=== PATIENT | female | born 1965 | race Caucasian/White ===

== ENCOUNTER 2023-11-14 07:52 | Outpatient (OUT) | payer OTHER, SELFPAY ==
--- NOTE | 2023-11-14 08:18 | MM_ITS ---
Patient Name: EREN ARCHIBALD MR#: [id number] : 1965 Exam Date: 11/14/2023 Ordering Doctor: ZENA Deutsch CNP RADIOLOGY REPORT PROCEDURE: MM TOMOSYNTHESIS SCREENING BI COMPARISON: MG MAMM SCREEN 3D [place] CAD, 11/13/2022. MG MAMM SCREEN 3D [place] CAD, 11/10/2021. MG MAMM SCREEN [place] W CAD, 11/09/2020. MG MAMM [place] SCRN W CAD DIG, 12/31/2013. INDICATIONS: Screening Calculator Name NCI Breast Cancer Risk Assessment Tool 5 Year Breast Cancer Risk 1.60% Lifetime Breast Cancer Risk 9.50% Personal Breast Cancer No Personal Ovarian Cancer No Treatments None Family Cancers Father with lung cancer at age 71. LOCATION: [facility] BREAST COMPOSITION: Heterogeneously dense,which may obscure small masses. FINDINGS: DIAGNOSTIC CATEGORY 1--NEGATIVE. RIGHT BREAST: No significant suspicious finding. No significant change has occurred. LEFT BREAST: No significant suspicious finding. No significant change has occurred. RECOMMENDATIONS: ROUTINE MAMMOGRAM AND CLINICAL EVALUATION IN 12 MONTHS. PLEASE NOTE: A NORMAL MAMMOGRAM DOES NOT EXCLUDE THE POSSIBILITY OF BREAST CANCER. A CLINICALLY SUSPICIOUS PALPABLE LUMP SHOULD BE BIOPSIED. Dictated by: Clem Espinal M.D. on 11/15/2023 at 07:37 Approved by: Clem Espinal M.D. on 11/15/2023 at 07:41
== END 2023-11-14 07:53 | disposition home or self-care (01) ==
LOC: MAMMO 07:52
PROVIDERS: PCP Nurse Practitioner; Visit Provider Nurse Practitioner
DX: Z12.31 Encounter for screening mammogram for malignant neoplasm of breast (principal); Z80.1 Family history of malignant neoplasm of trachea, bronchus and lung
CPT/HCPCS: 77063; 77067

== ENCOUNTER 2024-05-14 10:18 | Emergency (ER) | payer OTHER, SELFPAY ==
--- OUTSIDE RECORDS SUMMARY | 2024-05-14 10:27 | XMS_ITS | CCD ---
Author Organization [facility] Care Team Providers Care Applications Development Consultant Name Role Phone DR SAMMI ROBERTS Admitting Unavailabl e KARASIK ., DR CHAPA Attending Unavailabl e AICHHOLZ, CONTACT CLERK KIRSTEN Primary Care Unavailable KARASIK Alfredo, DR CHAPA Consulting Unavailabl e AICHHOLZ, CONTACT CLERK KIRSTEN Admitting Unavailable AICHHOLZ, CONTACT CLERK KIRSTEN Attending Unavailable AICHHOLZ, CONTACT CLERK KIRSTEN Primary Care Unavailable DR AROLDO ENGLISH V Consulting Unavailable AICHHOLZ, CONTACT CLERK KIRSTEN Consulting Unavailable AICHHOLZ, CONTACT CLERK KIRSTEN Admitting Unavailable AICHHOLZ, CONTACT CLERK KIRSTEN Attending Unavailable AICHHOLZ, CONTACT CLERK KIRSTEN Primary Care Unavailable AICHHOLZ, CONTACT CLERK KIRSTEN Consulting Unavailable DR INEZ FORD Consulting Unavailable AICHHOLZ, CONTACT CLERK KIRSTEN Admitting Unavailable AICHHOLZ, CONTACT CLERK KIRSTEN Attending Unavailable AICHHOLZ, CONTACT CLERK KIRSTEN Primary Care Unavailable AICHHOLZ, CONTACT CLERK KIRSTEN Consulting Unavailable AICHHOLZ, CONTACT CLERK KIRSTEN Admitting Unavailable AICHHOLZ, CONTACT CLERK KIRSTEN Attending Unavailable AICHHOLZ, CONTACT CLERK KIRSTEN Primary Care Unavailable AICHHOLZ, CONTACT CLERK KIRSTEN Consulting Unavailable DR INEZ FORD Consulting Unavailable RADHA RODRIGUEZ Consulting Unavailable AICHHOLZ, CONTACT CLERK KIRSTEN Admitting Unavailable AICHHOLZ, CONTACT CLERK KIRSTEN Attending Unavailable AICHHOLZ, CONTACT CLERK KIRSTEN Primary Care Unavailable AICHHOLZ, CONTACT CLERK KIRSTEN Consulting Unavailable AICHHOLZ, CONTACT CLERK KIRSTEN Admitting Unavailable AICHHOLZ, CONTACT CLERK KIRSTEN Attending Unavailable AICHHOLZ, CONTACT CLERK KIRSTEN Primary Care Unavailable AICHHOLZ, CONTACT CLERK KIRSTEN Consulting Unavailable DR INEZ FORD Consulting Unavailable AICHHOLZ, CONTACT CLERK KIRSTEN Admitting Unavailable AICHHOLZ, CONTACT CLERK KIRSTEN Attending Unavailable AICHHOLZ, CONTACT CLERK KIRSTEN Primary Care Unavailable AICHHOLZ, CONTACT CLERK KIRSTEN Consulting Unavailable Medications Current Medications Medication Drug Class(es) Dates Sig (Normalized) Sig (Original) amoxicillin 875 mg / clavulanate 125 mg oral tablet (1 source) Penicillin-class Antibacterial Start: 05-04-2024 take 1 tablet by mouth every twelve hours Amoxicillin-Pot Clavulanate Active 1 TAB PO Every 12 hours 07 09May 04, 2024 12:00am Problems Active Problems Problem Classification Problem Date Documented Date Episodic/Chronic Immunizations and screening for infectious disease (2 sources) Encounter for screening for human papillomavirus (HPV); Translations: [Contact with or exposure to other viral diseases] Onset: 01-07-2023 05-04-2024 Episodic Other ear and sense organ disorders (1 source) Hearing loss; Translations: [Unspecified hearing loss, unspecified ear] 05-04-2024 Chronic Other screening for suspected conditions (not mental disorders or infectious disease) (8 sources) Encounter for screening for malignant neoplasm of cervix; Translations: [Encounter for screening mammogram for malignant neoplasm of breast] Onset: 11-13-2022 Episodic Residual codes; unclassified (1 source) Family history of malignant neoplasm of trachea, bronchus and lung; Translations: [FAM HX MALIG NEOPLSM TRACH BRON LNG] Onset: 11-17-2022 Episodic Past or Other Problems Problem Classification Problem Date Documented Date Episodic/Chronic Abdominal pain (8 sources) Right lower quadrant pain; Translations: [Generalized abdominal pain] Onset: 07-11-2022 Episodic Other hematologic conditions (4 sources) Elevated erythrocyte sedimentation rate; Translations: [ELEVATED ERYTHROCYTE SED RATE] Onset: 08-15-2022 Episodic Other liver diseases (4 sources) Hepatomegaly, not elsewhere classified; Translations: [HEPATOMEGALY NEC] Onset: 08-26-2022 Episodic Ovarian cyst (1 source) Unspecified ovarian cyst, right side; Translations: [UNSPECIFIED OVARIAN CYST RIGHT SIDE] Onset: 08-10-2022 Episodic Results Test Name Value Interpretation Reference Range Facil ity PAP ACOG PANEL 2: 30 to 65on 01-12-2023 . . Normal [facility] Comment on above: Result Comment: Perf ormed at: WB Performed By: #### [id number] ####[facility] [id number] [place] [id number] Uriah Noriega Age Gdln ACOG Testing 30-65 Normal [facility] Comment on above: Performed By: #### [id number] ####[place] [address]Dr. Uriah Noriega DIAGNOSIS: Comment Normal [facility] Comment on above: Result Comment: NEGA TIVE FOR INTRAEPITHELIAL LESION OR MALIGNANCY. CELLULAR CHANGES ASSOCIATED WITH ATROPHY ARE PRESENT. THIS SPECIMEN WAS RESCREENED PART OF OUR EAR NOSE AND THROAT SPECIALIST PROGRAM. Performed at: WB Performed By: #### [id number] ####[facility] [id number] [place], [place] [address]Dr. Uriah Noriega HPV Aptima QNSPAP Normal [facility] Comment on above: Result Comment: Test not performed. Liquid based PAP vial contained insufficient specimen for molecular testing; likely a consequence of insufficient cellularity in original collection. This nucleic acid amplification test detects fourteen high-risk HPV types (16,18,31,33,35,39,45,51,52,56,58,59,66,68) without differentiation. Performed at: =G Performed By: #### [id number] ####[place] [address]Dr. Uriah Noriega HPV Genotype Reflex Comment Normal [facility] Comment on above: Result Comment: Crit eria not met, HPV Genotype not performed. Performed at: WB Performed By: #### [id number] ####[place] [address]Dr. Uriah Noriega Methodology: Comment Normal [facility] Comment on above: Result Comment: This liquid based ThinPrep(R) pap test was screened with the use of an image guided system. Performed at: WB Performed By: #### [id number] ####[place] [address]Dr. Uriah Noriega Note: Comment Normal [facility] Comment on above: Result Comment: The Pap smear is a screening test designed to aid in the detection of premalignant and malignant conditions of the uterine cervix. It is not a diagnostic procedure and should not be used as the sole means of detecting cervical cancer. Both false-positive and false-negative reports do occur. . Performed at: WB Performed By: #### [id number] ####[facility] [id number] [place], [place] [address]Fm. Uriah Noriega Performed by: Comment Normal [facility] Comment on above: Result Comment: Jonn Deng, Sole Rounder (ASCP) Performed at: WB Performed By: #### [id number] ####[facility] [address] [place], [place] [address]Wf. Uriah Noriega QC reviewed by: Comment Normal [facility] Comment on above: Result Comment: Arleen Larios, Sole Rounder Performed at: WB Performed By: #### [id number] ####[facility] [address] [place], [place] [address]Ml. Uriah Noriega Specimen adequacy: Comment Normal [facility] Comment on above: Result Comment: Sati sfactory for evaluation. Endocervical and/or squamous metaplastic cells (endocervical component) are present. Performed at: WB Performed By: #### [id number] ####[facility] [address] [place] [id number]. Uriah Noriega MG MAMM SCREEN 3D [place] CADon 11-13-2022 MG MAMM SCREEN 3D [place] CAD Patient: EREN ARCHIBALD Exam Date: 11/13/2022 : 1965 Gender:F Ordering : ZENA DEUTSCH [facility] Admission #: [id number] Family : Order #: [id number] CLICK HERE TO VIEW EXAM RADIOLOGY REPORT PROCEDURE: MAMMOGRAM SCREENING 3D BILATERAL CAD COMPARISON: MG MAMM SCREEN [place] W CAD, 11/09/2020. MG MAMM SCREEN 3D [place] CAD, 11/10/2021. INDICATIONS: Screening mammography Calculator Name NCI Breast Cancer Risk Assessment Tool 5 Year Breast Cancer Risk 1.50% Lifetime Breast Cancer Risk 9.70% Personal Breast Cancer No Personal Ovarian Cancer No Treatments None Family Cancers Father with lung cancer at age 71. LOCATION: [facility] BREAST COMPOSITION: Heterogeneously dense,which may obscure small masses. FINDINGS: DIAGNOSTIC CATEGORY 1--NEGATIVE. NO CHANGE FROM COMPARISON ASSESSMENT. Scattered benign-appearing lymph nodes are present. RIGHT BREAST: No significant suspicious finding. LEFT BREAST: No significant suspicious finding. RECOMMENDATIONS: ROUTINE MAMMOGRAM AND CLINICAL EVALUATION IN 12 MONTHS. PLEASE NOTE: A NORMAL MAMMOGRAM DOES NOT EXCLUDE THE POSSIBILITY OF BREAST CANCER. A CLINICALLY SUSPICIOUS PALPABLE LUMP SHOULD BE BIOPSIED. Dictated by: Aroldo English MD on 11/14/2022 at 10:15 Approved by: Aroldo English MD on 11/14/2022 at 10:16 Normal [facility] US SINGLE QUAD RT UPPERon US SINGLE QUAD RT UPPER EXAMINATION: US SINGLE QUAD RT UPPER HISTORY: Large liver COMPARISON: No relevant comparison available. TECHNIQUE: Transabdominal evaluation of the right upper quadrant. FINDINGS: LIVER: 2 adjacent rounded slightly hyperechoic lesions within right hepatic lobe near gallbladder fossa, 2.1 cm and 1.2 cm in maximum diameter respectively. PORTAL VEIN: Duplex Doppler demonstrates normal hepatopetal flow pattern with flow velocity averaging 23 cm/s. GALLBLADDER: No visible gallstones, wall thickening, or pericholecystic free fluid. Negative sonographic Ramirez's sign. BILIARY: No abnormal dilation or stones. Common bile duct diameter is within normal limits. PANCREASE: No visible mass, abnormal atrophy, or duct dilation. KIDNEY: No hydronephrosis. No visible mass or stones. Size: 8.4 x 4.5 x 3.0 cm IMPRESSION: 1. Stable small lesions within right hepatic lobe adjacent the gallbladder fossa demonstrate mild hyperechogenicity, which in correlation with MRI study favor benign hemangiomas. No additional follow-up recommended at this time. Electronically authenticated by: INEZ FORD Date: 2022-08-26 16:42 Normal [facility] CRPon 08-15-2022 CRP [Mass/Vol] mg/L Normal <=1.0 [facility] Comment on above: Performed By: #### C RP #### [facility] [address] [place], [place] [address] Dr. Uriah Noriega SED RATE WESTERGRENon 2021 SED RATE 32 mm/hr Critically high <=30 [facility] Comment on above: Performed By: #### S EDR ####[facility] [address] [place], [place] [address]JfDr. Uriah Noriega MRI ABDOMEN WO W CONon 08-09 MRI ABDOMEN WO W CON INDICATION: Large liver EXAMINATION: MRI - MRI ABDOMEN WO W CON TECHNIQUE: Multiplanar and multisequence MR images of the abdomen were obtained. IV Contrast Dosage and Agent: 13 mL of Dotarem COMPARISON: A CT scan of the abdomen and pelvis dated 07/08/2022. FINDINGS: LOWER CHEST: Lung bases are clear. No cardiomegaly or pericardial effusion. LIVER: There are adjacent nodules near the inferior margin of the right lobe of liver. The more lateral measures approximately 1.8 (transverse) x 1.4 (AP) x 1.5 (cc). The more medial measures approximately 1.3 (transverse) x 1.4 (AP) x 1.5 (cc) centimeters. These lesions are darker than underlying hepatic parenchyma on T1, brighter than spleen on T2 and exhibit intermediate homogeneous enhancement on portal venous images. On out of phase gradient echo images, there is slightly diminished signal within the liver compared with in phase gradient echo images, suggesting mild fatty infiltration of the underlying hepatic parenchyma. GALLBLADDER AND BILIARY TREE: No filling defects in the gallbladder. No gallbladder distension or wall edema. No intra- or extrahepatic biliary ductal dilation. PANCREAS: No focal cystic or solid mass. SPLEEN: Normal size without focal cystic or solid mass. ADRENAL GLANDS: No nodules. KIDNEYS AND URETERS: Normal renal size and position. No hydronephrosis. PERITONEUM: No ascites or free air. No other fluid collection. LYMPH NODES: No enlarged mesenteric or retroperitoneal lymph nodes. VESSELS: Aorta is non-dilated. IMPRESSION: 1. Adjacent hepatic nodules near the inferior margin of the right lobe of liver exhibiting imaging characteristics most consistent with hemangiomas. Other potential explanations are unlikely. If these lesions are echogenic compared to underlying hepatic parenchyma on ultrasound, no further workup is required. If the lesions are hypoechoic, a follow-up MRI examination in approximately 8-12 months time could be obtained in order to verify stability. Electronically authenticated by: RADHA RODRIGUEZ Date: 2022-08-09 14:14 Normal [facility] US PELVIS AND TRANSVAGon US PELVIS AND TRANSVAG EXAMINATION: US PELVIS AND TRANSVAG HISTORY: Cyst of right ovary COMPARISON: CT abdomen and pelvis 07/12/2022 TECHNIQUE: Transabdominal and transvaginal sonographic examination. FINDINGS: UTERUS: Normal size and appearance. Uterus size: 6.0 x 4.0 x 3.1 cm ENDOMETRIUM: Normal homogeneous appearance. Endometrial thickness: 3 mm RIGHT OVARY: Normal size and appearance. Duplex Doppler demonstrates normal waveform and flow; resistive index 0.4. Ovary size: 1.5 x 1.6 x 1.0 cm LEFT OVARY: Normal size and appearance. Duplex Doppler demonstrates normal waveform and flow; resistive index 0.5. Ovary size: 1.8 x 1.0 x 1.4 cm CUL-DE-SAC: Unremarkable. No significant free fluid. BLADDER: Unremarkable. OTHER: None. IMPRESSION: 1. Normal pelvic ultrasound. No suspicious findings. Electronically authenticated by: INEZ FORD Date: 2022-08-07 15:40 Normal [facility] CT ABD/PELV W CONon 07-13-20 CT ABD/PELV W CON EXAMINATION: CT ABD/PELV W CON HISTORY: Right lower quadrant pain COMPARISON: No relevant comparison available. TECHNIQUE: CT images were created with IV contrast. Axial, Coronal, and Sagittal images. Dose reduction techniques were achieved by using automated exposure control and/or adjustment of mA and/or kV according to patient size and/or use of iterative reconstruction technique FINDINGS: LUNG BASES: No visible pulmonary or pleural disease. LIVER: Lobular, enhancing 2.9 x 2.0 x 1.9 cm lesion at the inferior medial margin of the right hepatic lobe adjacent the gallbladder fossa. BILIARY: No dilatation or calcification. PANCREAS: No lesion, fluid collection, or abnormal duct dilatation. SPLEEN: No enlargement or focal lesion. ADRENALS: No mass or enlargement. KIDNEYS: No mass, obstruction, or calcification. BOWEL/MESENTERY: Numerous noninflamed diverticula throughout the entire colon. No visible mass, obstruction, or bowel wall thickening. Normal appendix. AORTA/VASCULAR: No aneurysm or dissection. RETROPERITONEUM: No mass or adenopathy. LYMPH NODES: No adenopathy. URINARY BLADDER: No visible focal wall thickening, lesion, or calculus. PELVIC ORGANS: Small cyst within right ovary. Trace fluid/edema within the pelvic cul-de-sac. Unremarkable uterus. ABDOMINAL WALL: No mass or hernia. BONES: L5-S1 marked degenerative disc disease. No bony lesion or fracture. OTHER: Negative. IMPRESSION: 1. Lobular, enhancing lesion versus several adjacent small lesions in inferior medial margin of anterior right hepatic lobe adjacent the gallbladder fossa. These are nonspecific, but a mass is favored over hemangiomas. Consider MRI of liver without and with IV contrast for further evaluation. 2. Colonic diverticulosis. 3. Trace amount of fluid within the pelvic cul-de-sac and small right ovarian cyst which may contribute to patient's symptoms. Consider ultrasound follow-up if clinically indicated. 4. L5-S1 marked degenerative disc disease. Electronically authenticated by: INEZ FORD Date: 2022-07-13 06:30 Normal [facility] OCC BLD IMMUNOASSAYon 2021 OCCULT BLOOD Negative Normal NEGATIVE [facility] Comment on above: Performed By: #### O MANISHA ####[facility] [id number] [place] [address]Dr. Uriah Noriega CBC AUTO DIFFon 07-10-2022 BASO # 0.1 103/ul Normal 0.0-0.1 [facility] Comment on above: Performed By: #### C BC #### [facility] [address] [place] [address] Dr. Uriah Noriega Basophils/100 WBC (Bld) 0.9 % Normal 0.2-2.0 [facility] Comment on above: Performed By: #### C BC #### [facility] [address] [place] [address] Dr. Uriah Noriega EO # 0.4 103/ul Normal 0.0-0.7 [facility] Comment on above: Performed By: #### C BC #### [facility] [address] [place] [address] [address] Uriah Noriega Eosinophils/100 WBC (Bld) 5.6 % Normal 0.9-7.0 [facility] Comment on above: Performed By: #### C BC #### [facility] [address] [place] [address] [address] Uriah Noriega Erythrocyte distribution width (RBC) [Ratio] 12.4 % Normal 11.0-15.0 [facility] Comment on above: Performed By: #### C BC #### [facility] [address] [place] [address] [address] Uriah Noriega Hematocrit (Bld) [Volume fraction] 42.3 % Normal 36.0-48.0 [facility] Comment on above: Performed By: #### C BC #### [facility] [address] [place] [address] Dr. Uriah Noriega Hemoglobin (Bld) [Mass/Vol] 13.8 g/dL Normal 12.0-16.0 [facility] Comment on above: Performed By: #### C BC #### [facility] [address] [place] [address] Dr. Uriah Noriega IG # 0.01 10e3/ul Normal 0.00-0.03 [facility] Comment on above: Performed By: #### C BC #### [facility] [address] [place] [address] Dr. Uriah Noriega IG % 0.2 % Normal 0.0-0.5 [facility] Comment on above: Performed By: #### C BC #### [facility] [address] [place] [address] Dr. Uriah Noriega LYMPH # 1.8 103/ul Normal 1.2-3.8 [facility] Comment on above: Performed By: #### C BC #### [facility] [address] [place] [address] Dr. Uriah Noriega Lymphocytes/100 WBC (Bld) 27.5 % Normal 20.5-60.0 [facility] Comment on above: Performed By: #### C BC #### [facility] [address] [place] [address] Dr. Uriah Noriega MANUAL DIFF REQ NO Normal [facility] Comment on above: Performed By: #### C BC #### [facility] [address] [place] [address] Dr. Uriah Noriega MCH (RBC) [Entitic mass] 28.6 pg Normal 26.7-34.0 [facility] Comment on above: Performed By: #### C BC #### [facility] [address] [place] [address] Dr. Uriah Noriega MCHC (RBC) [Mass/Vol] 32.6 g/dL Normal 29.9-35.2 [facility] Comment on above: Performed By: #### C BC #### [facility] [address] [place] [address] [address] Uriah Noriega MCV (RBC) [Entitic vol] 87.8 fL Normal 81.0-99.0 [facility] Comment on above: Performed By: #### C BC #### [facility] [address] [place] [address] [address] Uriah Noriega MONO # 0.6 103/ul Normal 0.3-0.8 [facility] Comment on above: Performed By: #### C BC #### [facility] [address] [place] [address] Dr. Uriah Noriega Monocytes/100 WBC (Bld) 9.4 % Normal 1.7-12.0 [facility] Comment on above: Performed By: #### C BC #### [facility] [address] [place] [address] Dr. Uriah Noriega NEUT # 3.7 103/ul Normal 1.4-6.5 [facility] Comment on above: Performed By: #### C BC #### [facility] [address] [place] [address] Dr. Uriah Noriega Neutrophils/100 WBC (Bld) 56.4 % Normal 43.0-75.0 [facility] Comment on above: Performed By: #### C BC #### [facility] [address] [place] [address] Dr. Uriah Noriega Platelet mean volume (Bld) [Entitic vol] 10.4 fL Normal 9.5-13.5 [facility] Comment on above: Performed By: #### C BC #### [facility] [address] [place] [address] Dr. Uriah Noriega PLT 314 103/ul Normal 150-450 [facility] Comment on above: Performed By: #### C BC #### [facility] [address] [place] [address] Dr. Uriah Noriega RBC 4.82 106/ul Normal 4.20-5.40 [facility] Comment on above: Performed By: #### C BC #### [facility] [address] [place] [address] [address] Uriah Noriega WBC 6.6 103/ul Normal 4.0-11.0 [facility] Comment on above: Performed By: #### C BC #### [facility] [address] [place] [address] [address] Uriah Noriega CRPon 07-10-2022 CRP 8.1 mg/dL Critically high <=1.0 [facility] Comment on above: Performed By: #### C RP, CMP ####[facility] [address] [place] [id number]. Uriah Noriega CULTURE URINEon 07-10-2022 CULTURE URINE Culture Observations : MODERATE GROWTH OF MIXED GENITAL ELOISA. NO POTENTIAL PATHOGENS SEEN. Normal [facility] Comment on above: Performed By: #### U RCX ####[facility] [address] [place] [address]Dr. Uriah Noriega PREG HCG QUALon 07-10-2022 , QUAL Negative Normal NEGATIVE [facility] Comment on above: Performed By: #### P REG #### [facility] [address] [place] [address] Dr. Uriah Noriega PROF 14(COMP METB)on 022 Albumin [Mass/Vol] 3.5 g/dL Normal 3.4-5.0 [facility] Comment on above: Performed By: #### C RP, CMP #### [facility] [address] [place] [address] Dr. Uriah Noriega Albumin/Globulin [Mass ratio] 0.9 {ratio} Normal [facility] Comment on above: Performed By: #### C RP, CMP #### [facility] [address] [place] [address] Dr. Uriah Noriega ALP [Catalytic activity/Vol] 67 U/L Normal 46-116 [facility] Comment on above: Performed By: #### C RP, CMP #### [facility] [address] [place] [address] [address] Uriah Noriega ALT [Catalytic activity/Vol] 19 U/L Normal 14-59 [facility] Comment on above: Performed By: #### C RP, CMP #### [facility] [address] [place] [address] Dr. Uriah Noriega Anion gap [Moles/Vol] 11.9 mmol/L Normal [facility] Comment on above: Performed By: #### C RP, CMP #### [facility] [address] [address] [address] Uriah Noriega AST [Catalytic activity/Vol] 21 U/L Normal 15-37 [facility] Comment on above: Performed By: #### C RP, CMP #### [facility] [address] [address] [address] Uriah Noriega Bilirubin [Mass/Vol] 0.3 mg/dL Normal 0.2-1.0 [facility] Comment on above: Performed By: #### C RP, CMP #### [facility] [address] [place] [address] Dr. Uriah Noriega Calcium [Mass/Vol] 8.9 mg/dL Normal 8.5-10.1 [facility] Comment on above: Performed By: #### C RP, CMP #### [facility] [address] [place] [address] Dr. Uriah Noriega Chloride [Moles/Vol] 104 mmol/L Normal 98-107 [facility] Comment on above: Performed By: #### C RP, CMP #### [facility] [address] [place] [address] Dr. Uriah Noriega CO2 [Moles/Vol] 27.4 mmol/L Normal 21.0-32.0 [facility] Comment on above: Performed By: #### C RP, CMP #### [facility] [address] [place] [address] Dr. Uriah Noriega Creatinine [Mass/Vol] 0.75 mg/dL Normal 0.55-1.02 [facility] Comment on above: Performed By: #### C RP, CMP #### [facility] [address] [place] [address] Dr. Uriah Noriega EGFR-AF DJIBOUTIAN >60 Normal >=60 [facility] Comment on above: Performed By: #### C RP, CMP #### [facility] [address] [address] [address] Uriah Noriega EGFR-NON AF DJIBOUTIAN >60 Normal >=60 [facility] Comment on above: Performed By: #### C RP, CMP #### [facility] [address] [address] [address] Uriah Noriega Globulin (S) [Mass/Vol] 4.0 g/dL Normal [facility] Comment on above: Performed By: #### C RP, CMP #### [facility] [address] [address] [address] Uriah Noriega Glucose [Mass/Vol] 92 mg/dL Normal 74-106 [facility] Comment on above: Performed By: #### C RP, CMP #### [facility] [address] [address] [address] Uriah Noriega Potassium [Moles/Vol] 4.3 mmol/L Normal 3.5-5.1 [facility] Comment on above: Performed By: #### C RP, CMP #### [facility] [address] [address] [address] Uriah Noriega Protein [Mass/Vol] 7.5 g/dL Normal 6.4-8.2 [facility] Comment on above: Performed By: #### C RP, CMP #### [facility] [address] [address] [address] Uriah Noriega Sodium [Moles/Vol] 139 mmol/L Normal 136-145 [facility] Comment on above: Performed By: #### C RP, CMP #### [facility] [address] [address] [address] Uriah Noriega Urea nitrogen [Mass/Vol] 13.0 mg/dL Normal 7.0-18.0 [facility] Comment on above: Performed By: #### C RP, CMP #### [facility] [address] [address] [address] Uriah Noriega Urea nitrogen/Creatinine [Mass ratio] 17.3 mg/mg Normal [facility] Comment on above: Performed By: #### C RP, CMP #### [facility] [address] [address] [address] Uriah Noriega SED RATE [facility] 2021 SED RATE 77 mm/hr Critically high <=30 [facility] Comment on above: Performed By: #### S EDR #### [facility] [address] [address] [address] Uriah Noriega UA (CLEAN/CATCH) FLUMER/MICRO I F IND.on 07-10-2022 Bilirubin Ql (U) SMALL Abnormal NEGATIVE [facility] Comment on above: Performed By: #### U ACSIND, UMICRO #### [facility] [address] [address] [address] Uriah Noriega Clarity (U) CLOUDY Abnormal CLEAR [facility] Comment on above: Performed By: #### U ACSIND, UMICRO #### [facility] [address] [address] [address] Uriah Noriega Color (U) YELLOW Normal YELLOW [facility] Comment on above: Performed By: #### U ACSIND, UMICRO #### [facility] [address] [address] [address] Uriah Noriega Glucose Ql (U) Negative Normal NEGATIVE [facility] Comment on above: Performed By: #### U ACSIND, UMICRO #### [facility] [address] [address] [address] Uriah Noriega Hemoglobin Ql (U) TRACE-INTACT Abnormal NEGATIVE [facility] Comment on above: Performed By: #### U ACSIND, UMICRO #### [facility] [address] [address] [address] Uriah Noriega Ketones Ql (U) 15 mg/dl Abnormal NEGATIVE [facility] Comment on above: Performed By: #### U ACSIND, UMICRO #### [facility] [address] [address] [address] Uriah Noriega LEUKOCYTES TRACE Abnormal NEGATIVE [facility] Comment on above: Performed By: #### U ACSIND, UMICRO #### [facility] [address] [address] [address] Uriah Noriega Nitrite Ql (U) Negative Normal NEGATIVE [facility] Comment on above: Performed By: #### U ACSDANY UMICRO #### [facility] [address] [address] [address] Uriah Noriega pH (U) 6.0 [pH] Normal 5-9 [facility] Comment on above: Performed By: #### U CHRISTEL UMICRO #### [facility] [address] [address] [address] Uriah Noriega SPEC GRAVITY >=1.030 Abnormal 1.005-<=1.025 [facility] Comment on above: Performed By: #### U CHRISTEL UMICRO #### [facility] [address] [place] [address] Dr. Uriah Noriega UA PROTEIN Negative Normal NEGATIVE/ TRACE [facility] Comment on above: Performed By: #### U CHRISTEL UMICRO #### [facility] [address] [place] [address] Dr. Uriah Noriega UR MICRO IND INDICATED Normal [facility] Comment on above: Performed By: #### U CHRISTEL UMICRO #### [facility] [address] [place] [address] Dr. Uriah Noriega Urobilinogen Qn (U) 0.2 {Anabelle'U}/dL Normal 0.2 - 1. 0 [facility] Comment on above: Performed By: #### U CHRISTEL UMICRO #### [facility] [address] [place] [address] Dr. Uriah Noriega URINE MICROSCOPIC ONLYon BACTERIA LARGE Abnormal NONE SEEN [facility] Comment on above: Performed By: #### U CHRISTEL UMICRO #### [facility] [address] [place] [address] Dr. Uriah Noriega Bacteria identified Cx Nom (U) INDICATED Normal [facility] Comment on above: Performed By: #### U CHRISTEL UMICRO #### [facility] [address] [address] [address] Uriah Noriega CAST NONE SEEN Normal NONE SEEN [facility] Comment on above: Performed By: #### U ACSDANY, UMICRO #### [facility] [address] [address] [address] Uriah Noriega Crystals LM Nom (Urine sed) NONE SEEN Normal NONE SEEN [facility] Comment on above: Performed By: #### U ACSDANY, UMICRO #### [facility] [address] [address] [address] Uriah Noriega Epithelial cells LM Ql (Urine sed) NONE SEEN Normal NONE SEEN /RARE [facility] Comment on above: Performed By: #### U ACSDANY, UMICRO #### [facility] [address] [place] [address] Dr. Uriah Noriega MUCOUS TRACE Abnormal NONE SEEN The [facility] Comment on above: Performed By: #### U ACSDANY, UMICRO #### [facility] [address] [place] [address] Dr. Uriah Noriega RBC NONE SEEN Abnormal 0-2 [facility] Comment on above: Performed By: #### U ACSDANY, UMICRO #### [facility] [address] [place] [address] Dr. Uriah Noriega WBC 0-2 Abnormal NONE SEEN [facility] Comment on above: Performed By: #### U ACSDANY, UMICRO #### [facility] [address] [place] [address] Dr. Uriah Noriega Pathology Noteon 11-07-2021 Pathology Note [id number] 0CD:127 Normal [facility] Outside Colonoscopyon 2020 Outside Colonoscopy [id number] CD:127 Normal [facility] Lab Reportson 10-31-2021 Lab Reports [id number] 0CD:127 Normal [facility] October 18, 2021 KIRSTEN DEUTSCH, [address] [place] [address] Re: EREN ARCHIBALD Date of : 1965 Thank you for your referral of Eren Archibald who was seen on consultation on 10/12/2021, for colonoscopy. I have enclosed my consultation note for your review. I will be happy to follow Eren. Sincerely, Radha Frankel MD General Surgery [facility] Consent for Procedure/Surger yon 10-17-2021 Consent for Procedure/Surgery [id number] 0CD:127 [facility] Ambulatory Clinical Summaryo n 10-12-2021 Ambulatory Clinical Summary {[id number] }CD:[id number] [facility] Provider Letteron 09-23-2021 Provider Letter September 23, 2021 September 23, 2021 EREN ARCHIBALD [address] [place] [address] EREN ARCHIBALD 1965 Dear Eren_ , We have been trying to reach you with no success. It is important that you return our call regarding your referral from Dr. Deutsch to General Surgery/[facility] upon receiving this letter. Also, at the time of your call, please provide us with your current information. Thank you for your prompt attention to this matter. Sincerely, General Surgery/[facility]ive Health [phone] [facility] Physician Referralon 021 Physician Referral [id number] 0CD:127 [facility] Vital Signs Date Time Vital Sign Value Performing Clinician Joe marino 05-04-2024 10:44-0400 Body height 154.94 cm [facility] 05-04-2024 10:44-0400 Body mass index (BMI) [Ratio] 28.3 kg/m2 [facility] 05-04-2024 10:44-0400 Body temperature 98 [degF] [facility] 05-04-2024 10:44-0400 Body weight 68.03 kg [facility] 05-04-2024 10:44-0400 Diastolic blood pressure 79 mm[Hg] [facility] 05-04-2024 10:44-0400 Heart rate 91 /min [facility] 05-04-2024 10:44-0400 Respiratory rate 18 /min [facility] 05-04-2024 10:44-0400 SaO2% (BldA) [Mass fraction] 98 % [facility] 05-04-2024 10:44-0400 Systolic blood pressure 140 mm[Hg] [facility] Encounters Encounter Date Encounter Type Care Provider Facility Start: 05-04-2024 End: 05-04-[address] [facility] Work Phone: Start: 05-04-2024 End: 05-04-2024 Patient encounter procedure [facility] Work Phone: Start: 01-03-2023 End: 01-03-[address] SAMMI LEES . Facility:[facility] Start: 11-13-2022 End: 11-14-2022 ambulatory CONTACT CLERK KIRSTEN AICHHOLZ Facility:[facility] Start: 08-26-2022 End: 08-27-2022 ambulatory CONTACT CLERK KIRSTEN AICHHOLZ Facility:[facility] Start: 08-15-2022 End: 08-16-2022 ambulatory CONTACT CLERK KIRSTEN AICHHOLZ Facility:[facility] Start: 08-07-2022 End: 08-08-2022 ambulatory CONTACT CLERK KIRSTEN AICHHOLZ Facility:[facility] Start: 07-12-2022 End: 07-13-2022 ambulatory CONTACT CLERK KIRSTEN AICHHOLZ Facility:[facility] Start: 07-11-2022 End: 07-11-2022 ambulatory CONTACT CLERK KIRSTEN AICHHOLZ Facility:[facility] Start: 07-10-2022 End: 07-11-2022 ambulatory CONTACT CLERK KIRSTEN AICHHOLZ Facility:[facility] Plan of Treatment Date Care Activity Detail Author [facility] Payers Date Payer Category Payer Unknown [id number] 2.16.84 [id number] 1965 Unknown [id number] 2.16.84 [id number] 1965 Unknown [id number] 2.16.84 [id number] 1965 Unknown [id number] 2.16.84 [id number] 1965 Unknown [id number] 2.16.84 [id number] 1965 Unknown [id number] 2.16.84 [id number] 1965 Unknown [id number] 2.16.84 [id number] 1965 Unknown [id number] 2.16.84 [id number] 1958 Unknown [id number] 1958 Unknown [id number] Social History Date Type Detail Facility Tobacco smoking stat [facility] Unknown if ever smoked [facility] Work Phone: Start: 1965 Sex Assigned At Female F [facility] Start: 05-04-2024 [facility] Clinical Note 10-12-2021 Note Date & Type Note Facility 10-12-2021 Note Chief Complaint consultation for colonoscopy HPI Staff 56 year old female presents on consultation from Kirsten Deutsch NP for colonoscopy. Last colonoscopy completed 12/11/2016 with tubular adenoma. No known family history of colon cancer. Denies abdominal or rectal pain. No rectal bleeding or change in bowel habits. Denies nausea or vomiting. No unexplained weight loss. History of Present Illness 56 yo female referred for surveillance colonoscopy, last colonoscopy 11/2016 with 2, tubular adenomas removed; denies change in bms or blood in stools; only abdominal operation tubal ligation; denies asa or NSAID use, no SBE prophylaxis; no fmhx of GI malignancy or IBD. Review of Systems PHQ Score Initial Depression Screen Score: 0 ROS - Provider Constitutional: no fever, no sweats, no weight loss. Eyes: no glasses, no blurred vision, no visual loss. ENMT: no dentures, no hoarseness, no swallowing difficulties, no hearing loss, no ear infection(s), no nose bleeds. Cardiovascular: normal blood pressure, no chest pain, regular heartbeat, no heart murmur. Respiratory: no shortness of breath, no cough, no asthma, no wheezing. Gastrointestinal: no nausea, no vomiting, no diarrhea, no constipation, no blood in stool, no change in bowel habits, no abdominal pain, no hepatitis. Genitourinary: no kidney stones, no urine infection, no dysuria. Musculoskeletal: no pain, no weakness. Skin: no changing moles, no rash, no skin lumps. Neurologic: no seizures, no epilepsy, no headache. Psychiatric: no emotional or psychiatric problem. Heme/Lymph: no bleeding problems, no anemia, no blood clots, no transfusions. Allergy/Immunologic: no swollen lymph nodes/glands, no IV drug abuse. Other: Additional ROS info: Except as noted in the above Review of Systems and in the History of Present Illness, all other systems have been reviewed and are negative or noncontributory. Physical Exam Vitals & Measurements T: 36.4 ?C(Temporal Artery) HR: 72(Peripheral) RR: 16 BP: 116/78 HT: 156.2 cm HT: 156.2 cm WT: 70 kg WT: 70.0 kg BMI: 28.69 HEENT: normal conjunctiva, sclera clear, no scleral icterus, EOM intact, PERRLA, oral mucosa moist without lesions. Neck: trachea midline, no mass, symmetric, no thyromegaly or nodules, no adenopathy Respiratory: lungs CTA, respirations non labored. Cardiovascular: regular rate and rhythm, no murmur, no pedal edema or varicosities. Gastrointestinal: soft, non distended, no tenderness, no masses, no palpable hernias, diastasis recti no, no hepatosplenomegaly; normal bs Lymphatic: no cervical adenopathy, Musculoskeletal: normal gait, digits and nails without infection, nodes, cyanosis, clubbing. Skin: no rashes, no lesions, no ulcers, no subcutaneous nodules, induration. Psychiatric/Neuro: oriented to time, place, person, judgement normal, affect appropriate for age, insight intact, no focal deficits. Tests: review of old records completed, Discussed surgical options, risks, and possible complications with patient. Assessment/Plan 1. Personal history of colonic polyps (Z86.010: Personal history of colonic polyps) plan colonoscopy under anesthesia, informed consent obtained. Follow-up No qualifying data available Problem List/Past Medical History Ongoing BMI 28.0-28.9,adult Deafness Diverticulosis GERD (gastroesophageal reflux disease) Hammertoe of left foot Hyperlipemia Personal history of colonic polyps Historical No qualifying data Procedure/Surgical History Colonoscopy (12/11/2016), Tubal ligation. Medications Multi Vitamins oral tablet, 1 tab(s), Oral, Daily Allergies No Known Allergies No Known Medication Allergies Social History Alcohol - Denies Alcohol Use, 10/12/2021 Substance Abuse - Denies Substance Abuse, 10/12/2021 Tobacco Never (less than 100 in lifetime) Tobacco Use:. Never Smokeless Tobacco Use:., 10/12/2021 Family History Acute myocardial infarction: Mother. Angiomyxoma: Mother. Cardiac arrest: Mother. Diabetes mellitus type 2: Mother. Primary malignant neoplasm of lung: Father. [facility] Comment on above: Result Comment: Elec tronically Signed By: APRIL NUNES, Radha Rojas\.ramsey\Date and Time Signed: 10/12/21 14:44 EST Evaluation note Note Date & Type Note Facility Evaluation note No assessment information availa ble [facility] Work Phone: Evaluation note Note Date & Type Note Facility Evaluation note Diagnosis Onset Date Contact with and (suspected) exposure to covid-19 noneactive [facility] Work Phone: Summary Purpose Family History No Family History Records FoundNo Family History Records Found Advance Directives Advance Directive Response Recorded Date/ Time Advance Directives No May 04 10:09am Chief Complaint and Reason for Visit Chief Complaint sore throat, cough, infection Chief Complaint sore throat, cough, infection Reason for Visit Contact with and (serna spected) exposure to covid-19 Additional Source Comments INFORMATION SOURCE (unrecogn ized section and content) DATE CREATED AUTHOR 11/08/2021 [facility] DATE CREATED AUTHOR AUTHOR'S ORGANIZ ATION 01/13/2023 [facility] Care Teams (unrecognized sec tion and content) Team Status: Active Member Role Status Dates NON STAFF Primary Care Provider Active Team Status: Inactive Member Role Status Dates Debra Resendiz APRN Attending Provider Active Start: May 04, 2024 End: May 04, 2024 NON STAFF Primary Care Provider Active Start: May 04, 2024 End: May 04, 2024 Team Status: Active Member Role Status Dates NON STAFF Primary Care Provider Active Team Status: Active Member Role Status Dates Debra Resendiz APRN Attending Provider Active Start: May 04, 2024 NON STAFF Primary Care Provider Active Start: May 04, 2024 Team Status: Inactive Member Role Status Dates Debra Resendiz APRN Attending Provider Active Start: May 04, 2024 End: May 04, 2024 NON STAFF Primary Care Provider Active Start: May 04, 2024 End: May 04, 2024 Goals (unrecognized section and content) Goals may be documented in a n alternate sectionGoals may be documented in an alternate section FOR RECORDS PERTAINING TO PATIENTS WHO ARE OR HAVE BEEN ENROLLED IN A CHEMICAL DEPENDENCY/SUBSTANCEABUSE PROGRAM, SOME INFORMATION MAY BE OMITTED. This clinical summary was aggregated from multiple sources. Caution should be exercised in using it in the provision of clinical care. This summary normalizes information from multiple sources, and as a consequence, information in this document may materially change the coding, format and clinical context of patient data. In addition, data may be omitted in some cases. CLINICAL DECISIONS SHOULD BE BASED ON THE PRIMARY CLINICAL RECORDS. [facility] [employer] [facility]. provides no warranty or guarantee of the accuracy or completeness of information in this document.
[2024-05-14 10:29] VITALS: BP 146/81; PULSE 79; TEMP 36.6; O2SAT 100; BMI 28.0
--- NOTE | 2024-05-14 10:36 | ED_ITS ---
HPI - Abdominal Pain General Chief Complaint: Abdominal Pain Stated Complaint: ABNORMAL LAB VALUE Time Seen by Provider: 05/14/24 10:29 History of Present Illness HPI narrative: 58-year-old female presents for left lower quadrant abdominal pain that she has had for 4 days. She saw her PCP today who sent her here with a concern of diverticulitis. The patient's never had diverticulitis previously. No trauma or dysuria or blood in her stool. The pain comes and goes. The patient is deaf but an excellent interpretation is obtained through an aerial photograph interpreter. Related Data Previous Rx's ?Medication ?Instructions ?Recorded cephalexin 500 mg capsule 500 mg PO TID 7 days #21 caps 05/14/24 Allergies Allergy/AdvReac Type Severity Reaction Status Date / Time No Known Drug Allergies Allergy Verified 05/14/24 10:26 Review of Systems ROS Narrative A ten point review of systems is negative except as noted above. Exam Narrative Exam Narrative: Nurses note and vital signs reviewed and patient is not hypoxic. General: The patient appears in no apparent distress. Patient is resting comfortably on cart. Skin: Warm, dry, no pallor noted. There is no rash noted. Head: Normocephalic, atraumatic Eye: Normal conjunctiva, no drainage Ears, Nose, Mouth, and Throat: oral mucosa is moist. Nares patent. Cardiovascular: Regular Rate and Rhythm Respiratory: Patient is in no distress, no accessory muscle use, lungs are clear to auscultation, no wheezing, rales or rhonchi Back: non-tender GI: Normal bowel sounds, mild tenderness to palpation in the left lower quadra nt, no masses appreciated. No rebound, guarding, or rigidity noted. Musculoskeletal: The patient has no evidence of calf tenderness, no pitting edema, symmetrical pulses noted bilaterally Neurological: Awake and alert Psychiatric: Cooperative Constitutional Vital Signs, click to edit/add: Last Vital Signs Temp 98 F 05/14/24 10:29 Pulse 79 05/14/24 10:29 Resp 15 05/14/24 10:29 BP 146/81 H 05/14/24 10:29 Pulse Ox 98 05/14/24 10:49 O2 Del Method Room Air 05/14/24 10:49 Course Vital Signs Vital signs: Vital Signs Temperature 98 F 05/14/24 10:29 Pulse Rate 79 05/14/24 10:29 Respiratory Rate 15 05/14/24 10:29 Blood Pressure 146/81 H 05/14/24 10:29 Pulse Oximetry 100 05/14/24 10:29 Oxygen Delivery Method Room Air 05/14/24 10:29 Temperature 98 F 05/14/24 10:29 Pulse Rate 79 05/14/24 10:29 Respiratory Rate 15 05/14/24 10:29 Blood Pressure 146/81 H 05/14/24 10:29 Pulse Oximetry 98 05/14/24 10:49 Oxygen Delivery Method Room Air 05/14/24 10:49 MDM - Abdominal Pain MDM Narrative Medical decision making narrative: CT scan is negative. She appears to have a UTI and was started on Keflex here and prescribed Keflex. Findings were discussed with the patient. Differential Diagnosis Differential diagnosis: Likely abdominal pain, acute appendicitis, constipation, diverticulitis and other (Urinary tract infection) Lab Data Attestation: I reviewed the patient's lab results. Labs: Lab Results 05/14/24 05/14/24 Range/Units 10:47 11:20 WBC 11.8 H (4.0-11.0) 10^3/uL RBC 4.86 (4.20-5.40) 10^6/uL Hgb 13.7 (12.0-16.0) g/dL Hct 42.3 (36.0-48.0) % MCV 87.0 (81.0-99.0) fL MCH 28.2 (26.7-34.0) pg MCHC 32.4 (29.9-35.2) g/dL RDW 12.8 (11.0-15.0) % Plt Count 432 (150-450) 10^3/uL MPV 9.2 L (9.5-13.5) fL Neut % (Auto) 63.6 (43.0-75.0) % Lymph % (Auto) 25.8 (20.5-60.0) % [place] % (Auto) 7.2 (1.7-12.0) % Eos % (Auto) 2.3 (0.9-7.0) % Baso % (Auto) 0.6 (0.2-2.0) % Neut # (Auto) 7.5 H (1.4-6.5) 10^3/uL Lymph # (Auto) 3.0 (1.2-3.8) 10^3/uL [place] # (Auto) 0.9 H (0.3-0.8) 10^3/uL Eos # (Auto) 0.3 (0.0-0.7) 10^3/uL Baso # (Auto) 0.1 (0.0-0.1) 10^3/uL Abs Immat Gran (auto) 0.06 H (0.00-0.03) 10^3/uL Imm/Tot Granulo (auto) 0.5 (0.0-0.5) % Sodium 141 (136-145) mmol/L Potassium 4.2 (3.5-5.1) mmol/L Chloride 104 (98-107) mmol/L Carbon Dioxide 28.3 (21.0-32.0) mmol/L Anion Gap 12.9 BUN 25.0 H (7.0-18.0) mg/dL Creatinine 0.94 (0.55-1.02) mg/dL Est GFR ( Amer) >60 (>=60) Est GFR (Non-Af Amer) >60 (>=60) BUN/Creatinine Ratio 26.6 Glucose 100 (74-106) mg/dL Calcium 9.0 (8.5-10.1) mg/dL Urine Color Lt. yellow (YELLOW) Urine Clarity Clear (CLEAR) Urine pH 5.5 (5.0-9.0) Ur Specific [place] >=1.030 A (1.005-1.025) Urine Protein Negative (NEG/TRACE) mg/dL Urine Glucose (UA) Negative (NEGATIVE) mg/dL Urine Ketones Negative (NEGATIVE) mg/dL Urine Occult Blood Negative (NEGATIVE) Urine Nitrite Negative (NEGATIVE) Urine Bilirubin Negative (NEGATIVE) Urine Urobilinogen 0.2 (0.2-1.0) EU/dL Ur Leukocyte Esterase Trace A (NEGATIVE) Urine RBC 0-2 (0-2) #/HPF Urine WBC 5-10 A (NONE SEEN) #/HPF Ur Squamous Epith Cells Few A (NONE/RARE) #/LPF Ur Transition Epith Cell Rare A (NONE SEEN) #/LPF Urine Crystals Seen A (None Seen) #/HPF Uric Acid Crystals Rare Urine Bacteria Moderate A (NONE SEEN) #/HPF Urine Casts Seen A (NONE SEEN) #/LPF Hyaline Casts Rare Urine Mucus Moderate A (NONE SEEN) Ur Culture Indicated? Yes Imaging Data CT scan - abdomen: Radiologist's impression: ITS Impressions Abdomen/Pelvis CT 05/14/24 10:36 IMPRESSION: 1. No acute abdominal or pelvic abnormality. 2. Other nonemergent findings, as described above. Electronically authenticated by: DREW BURNETT Date: 05/14/2024 11:40 Discharge Plan Discharge Stand Alone Forms: Portal Instructions Chief Complaint: Abdominal Pain Clinical Impression: Urinary tract infection Patient Disposition: Home, Self-Care Time of Disposition Decision: 11:53 Condition: Good Prescriptions / Home Meds: New cephalexin 500 mg capsule 500 mg PO TID 7 Days Qty: 21 0RF Print Language: Kazakh Instructions: Urinary Tract Infection in Women (ED) Referrals: Kirsten Deutsch NP [Primary Care Provider] - 1 week
--- NOTE | 2024-05-14 10:36 | CT_ITS ---
The [address] [address] Patient Name: EREN ARCHIBALD MRN: [id number] date: 1965 Sex: F Assigned Patient Location: ER Current Patient Location: ER Accession/Order Number: [id number] Exam Date: 05/14/2024 11:08 Report Date: 05/14/2024 11:40 At the request of: STEPH HOUSE Procedure: CT abdomen pelvis w con EXAM: CT abdomen pelvis w con HISTORY: Left lower quadrant pain, rule out diverticulitis COMPARISON: None. TECHNIQUE: Following intravenous administration of 99 mL of Omnipaque 300, axial soft tissue windows of the abdomen and pelvis were performed with coronal and sagittal reformats. CT dose reduction technique was used including Automated Exposure Control. Findings: ABDOMEN: Within segment 5 of the liver there is a partially enhancing 2.4 cm lesion likely representing a hemangioma. The remainder of the visualized portions of the liver are unremarkable. The hepatic dome was excluded from the [id number]-htiq. The gallbladder, spleen, pancreas, adrenal glands and kidneys are unremarkable. The bilateral ureters are nondilated. Evaluation of the bowel is limited given the absence of oral contrast. There are colonic diverticula. No bowel obstruction. The appendix is nondilated. The aorta is normal caliber. No enlarged abdominal lymph nodes or free abdominal fluid. Pelvis: The bladder is nondistended limiting its evaluation. No calculi. The uterus is present and unremarkable within the limits of CT. No enlarged pelvic lymph nodes or free pelvic fluid. No aggressive sclerotic or lytic osseous lesions. Moderate to severe L5-S1 degenerative disc disease. CT/CT abdomen pelvis w con IMPRESSION: 1. No acute abdominal or pelvic abnormality. 2. Other nonemergent findings, as described above. Electronically authenticated by: DREW BURNETT Date: 05/14/2024 11:40
[2024-05-14 10:49] VITALS: O2SAT 98
[2024-05-14 11:05] LABS: Basophils Absolute Auto 0.1 10^3/uL (0.0-0.1); Basophils Percent Auto 0.6 % (0.2-2.0); Eosinophils Absolute Auto 0.3 10^3/uL (0.0-0.7); Eosinophils Percent Auto 2.3 % (0.9-7.0); Hematocrit 42.3 % (36.0-48.0); Hemoglobin 13.7 g/dL (12.0-16.0); Immature Granulocytes Abs Auto 0.06 10^3/uL (0.00-0.03); Immature Granulocytes Pct Auto 0.5 % (0.0-0.5); Lymphocytes Percent Auto 25.8 % (20.5-60.0); Mean Corpuscular HGB Conc 32.4 g/dL (29.9-35.2); Mean Corpuscular Hemoglobin 28.2 pg (26.7-34.0); Mean Platelet Volume 9.2 fL (9.5-13.5); Monocytes Absolute Auto 0.9 10^3/uL (0.3-0.8); Monocytes Percent Auto 7.2 % (1.7-12.0); Neutrophils Absolute Auto 7.5 10^3/uL (1.4-6.5); Neutrophils Percent Auto 63.6 % (43.0-75.0); Platelet Count 432 10^3/uL (150-450); Red Blood Count 4.86 10^6/uL (4.20-5.40); Red Cell Distribution Width 12.8 % (11.0-15.0); White Blood Count 11.8 10^3/uL (4.0-11.0)
[2024-05-14 11:27] LABS: Anion Gap 12.9; BUN Creatinine Ratio 26.6; Carbon Dioxide 28.3 mmol/L (21.0-32.0); Chloride 104 mmol/L (98-107); Estimated GFR (African America >60 (>=60); Estimated GFR (Non-African Ame >60 (>=60); Glucose 100 mg/dL (74-106); Potassium 4.2 mmol/L (3.5-5.1); Sodium 141 mmol/L (136-145)
[2024-05-14 11:32] LABS: Bilirubin Urine NEGATIVE (NEGATIVE); Blood Urine NEGATIVE (NEGATIVE); Clarity Urine CLEAR (CLEAR); Color Urine LT. YELLOW (YELLOW); Glucose Urine UA NEGATIVE (NEGATIVE); Ketones Urine NEGATIVE (NEGATIVE); Leukocyte Esterase Urine TRACE (NEGATIVE); Nitrite Urine NEGATIVE (NEGATIVE); Protein Urine NEGATIVE (NEG/TRACE); Specific Gravity Urine >=1.030 (1.005-1.025); Urobilinogen Urine 0.2 EU/dL (0.2-1.0); pH Urine 5.5 (5.0-9.0)
[2024-05-14 11:46] LABS: Bacteria Urine MODERATE #/HPF (NONE SEEN); Mucus Urine MODERATE (NONE SEEN); RBC Urine 0-2 #/HPF (0-2); Squamous Epithelial Cell Urine FEW #/LPF (NONE/RARE); Transitional Epi Cells Urine RARE #/LPF (NONE SEEN)
[2024-05-14 11:47] LABS: Cast Seen? SEEN #/LPF (NONE SEEN); Crystals Seen? Seen #/HPF (None Seen); Uric Acid Crystals Urine RARE
[2024-05-14 11:48] LABS: Hyaline Casts Urine RARE; Urine Culture Indicated YES
[2024-05-14] MEDS: CEPHALEXIN 500 MG CAPSULE PO (12:03)
[2024-05-14 12:04] VITALS: BP 146/88; PULSE 76
== END 2024-05-14 12:07 | disposition home or self-care (01) ==
PROVIDERS: Emergency Provider Emergency Medicine; PCP Nurse Practitioner
DX: N39.0 Urinary tract infection, site not specified (principal)
CPT/HCPCS: 36415; 74177; 80048; 81001; 85025; 87086; 99284; Q9967

== ENCOUNTER 2024-07-30 13:04 | Outpatient (OUT) | payer OTHER, SELFPAY ==
--- NOTE | 2024-07-30 | XR_ITS ---
The [address] [address] Patient Name: EREN ARCHIBALD MRN: [id number] date: 1965 Sex: F Assigned Patient Location: Current Patient Location: Accession/Order Number: [id number] Exam Date: 07/30/2024 13:05 Report Date: 08/01/2024 04:43 At the request of: ANA ORO Procedure: XR foot LT min 3V PROCEDURE: XR foot LT min 3V HISTORY: LEFT FOOT PAIN COMPARISON: None. FINDINGS: BONES:Narrowing of the first metatarsophalangeal joint and lateral deviation at toe/bunion formation. Abnormal widening of the interspace between the second and third toes with medial deviation second toe and lateral deviation of the third toe; unremarkable metatarsophalangeal joints. SOFT TISSUES:No visible soft tissue swelling. EFFUSION:None visible. OTHER: Negative. XR/XR foot LT min 3V IMPRESSION: 1. Bunion formation. 2. Splaying of the second and third toes. Electronically authenticated by: INEZ FORD Date: 08/01/2024 04:43
== END 2024-07-30 13:05 | disposition home or self-care (01) ==
LOC: EC 13:04
PROVIDERS: PCP Nurse Practitioner; Visit Provider Podiatrist Foot & Ankle Surgery
DX: M79.672 Pain in left foot (principal); M21.612 Bunion of left foot
CPT/HCPCS: 73630

== ENCOUNTER 2024-11-17 10:43 | Outpatient (OUT) | payer OTHER, SELFPAY ==
--- NOTE | 2024-11-17 10:46 | MM_ITS ---
Patient Name: EREN ARCHIBALD MR#: [id number] : 1965 Exam Date: 11/17/2024 Ordering Doctor: ZENA Deutsch CNP RADIOLOGY REPORT PROCEDURE: MM TOMOSYNTHESIS SCREENING BI COMPARISON: MM TOMOSYNTHESIS SCREENING BI, 11/14/2023. MG MAMM SCREEN 3D [place] CAD, 11/13/2022. MG MAMM SCREEN 3D [place] CAD, 11/10/2021. MG MAMM [place] SCRN W CAD DIG, 12/31/2013. INDICATIONS: Screening Calculator Name NCI Breast Cancer Risk Assessment Tool 5 Year Breast Cancer Risk 1.60% Lifetime Breast Cancer Risk 9.30% Personal Breast Cancer No Personal Ovarian Cancer No Treatments None Family Cancers Father with lung cancer at age 71. LOCATION: [facility] BREAST COMPOSITION: The breasts are heterogeneously dense,which may obscure small masses. FINDINGS: DIAGNOSTIC CATEGORY 1--NEGATIVE. RIGHT BREAST: No significant suspicious finding. No significant change has occurred. LEFT BREAST: No significant suspicious finding. No significant change has occurred. RECOMMENDATIONS: ROUTINE MAMMOGRAM AND CLINICAL EVALUATION IN 12 MONTHS. PLEASE NOTE: A NORMAL MAMMOGRAM DOES NOT EXCLUDE THE POSSIBILITY OF BREAST CANCER. A CLINICALLY SUSPICIOUS PALPABLE LUMP SHOULD BE BIOPSIED. Dictated by: Clem Espinal M.D. on 11/17/2024 at 16:54 Approved by: Clem Espinal M.D. on 11/17/2024 at 16:57
--- OUTSIDE RECORDS SUMMARY | 2024-11-17 10:54 | XMS_ITS | CCD ---
Author Organization [facility] Care Team Providers Care Aeronautical Design Engineer Name Role Phone DR SAMMI ROBERTS Admitting Unavailabl e KARASIK ., DR CHAPA Attending Unavailabl e AICHHOLZ, TRAFFIC ADMINISTRATOR KIRSTEN Primary Care Unavailable KARASIK Alfredo, DR CHAPA Consulting Unavailabl e AICHHOLZ, TRAFFIC ADMINISTRATOR KIRSTEN Admitting Unavailable AICHHOLZ, TRAFFIC ADMINISTRATOR KIRSTEN Attending Unavailable AICHHOLZ, TRAFFIC ADMINISTRATOR KIRSTEN Primary Care Unavailable DR AROLDO ENGLISH V Consulting Unavailable AICHHOLZ, TRAFFIC ADMINISTRATOR KIRSTEN Consulting Unavailable AICHHOLZ, TRAFFIC ADMINISTRATOR KIRSTEN Admitting Unavailable AICHHOLZ, TRAFFIC ADMINISTRATOR KIRSTEN Attending Unavailable AICHHOLZ, TRAFFIC ADMINISTRATOR KIRSTEN Primary Care Unavailable AICHHOLZ, TRAFFIC ADMINISTRATOR KIRSTEN Consulting Unavailable DR INEZ FORD Consulting Unavailable AICHHOLZ, TRAFFIC ADMINISTRATOR KIRSTEN Admitting Unavailable AICHHOLZ, TRAFFIC ADMINISTRATOR KIRSTEN Attending Unavailable AICHHOLZ, TRAFFIC ADMINISTRATOR KIRSTEN Primary Care Unavailable AICHHOLZ, TRAFFIC ADMINISTRATOR KIRSTEN Consulting Unavailable AICHHOLZ, TRAFFIC ADMINISTRATOR KIRSTEN Admitting Unavailable AICHHOLZ, TRAFFIC ADMINISTRATOR KIRSTEN Attending Unavailable AICHHOLZ, TRAFFIC ADMINISTRATOR KIRSTEN Primary Care Unavailable AICHHOLZ, TRAFFIC ADMINISTRATOR KIRSTEN Consulting Unavailable DR INEZ FORD Consulting Unavailable RADHA RODRIGUEZ Consulting Unavailable AICHHOLZ, TRAFFIC ADMINISTRATOR KIRSTEN Admitting Unavailable AICHHOLZ, TRAFFIC ADMINISTRATOR KIRSTEN Attending Unavailable AICHHOLZ, TRAFFIC ADMINISTRATOR KIRSTEN Primary Care Unavailable AICHHOLZ, TRAFFIC ADMINISTRATOR KIRSTEN Consulting Unavailable AICHHOLZ, TRAFFIC ADMINISTRATOR KIRSTEN Admitting Unavailable AICHHOLZ, TRAFFIC ADMINISTRATOR KIRSTEN Attending Unavailable AICHHOLZ, TRAFFIC ADMINISTRATOR KIRSTEN Primary Care Unavailable AICHHOLZ, TRAFFIC ADMINISTRATOR KIRSTEN Consulting Unavailable DR INEZ FORD Consulting Unavailable AICHHOLZ, TRAFFIC ADMINISTRATOR KIRSTEN Admitting Unavailable AICHHOLZ, TRAFFIC ADMINISTRATOR KIRSTEN Attending Unavailable AICHHOLZ, TRAFFIC ADMINISTRATOR KIRSTEN Primary Care Unavailable AICHHOLZ, TRAFFIC ADMINISTRATOR KIRSTEN Consulting Unavailable Medications Current Medications Medication [...] 30 to 65on 01-12-2023 . . Normal [facility] Comment on above: Result Comment: Perf ormed at: WB Performed By: #### 4 [id number] ####[facility] [address] [place] [id number] Uriah Noriega Age Gdln ACOG Testing 30-65 Normal [facility] Comment on above: Performed By: #### 4 [id number] ####[place] [address]Dr. Uriah Noriega DIAGNOSIS: Comment Normal [facility] Comment on above: Result Comment: NEGA TIVE FOR INTRAEPITHELIAL LESION OR MALIGNANCY. CELLULAR CHANGES ASSOCIATED WITH ATROPHY ARE PRESENT. THIS SPECIMEN WAS RESCREENED PART OF OUR WASTE MACHINE TENDER PROGRAM. Performed at: WB Performed By: #### 4 [id number] ####[facility] [address] [place], [place] [address]Dr. Uriah Noriega HPV Aptima QNSPAP Normal [facility] Comment on above: Result Comment: Test not performed. Liquid based PAP vial contained insufficient specimen for molecular testing; likely a consequence of insufficient cellularity in original collection. This nucleic acid amplification test detects fourteen high-risk HPV types (16,18,31,33,35,39,45,51,52,56,58,59,66,68) without differentiation. Performed at: =G Performed By: #### 4 [id number] ####[place] [address]Dr. Uriah Noriega HPV Genotype Reflex Comment Normal [facility] Comment on above: Result Comment: Crit eria not met, HPV Genotype not performed. Performed at: WB Performed By: #### 4 [id number] ####[place] [address]Dr. Uriah Noriega Methodology: Comment Normal [facility] Comment on above: Result Comment: This liquid based ThinPrep(R) pap test was screened with the use of an image guided system. Performed at: WB Performed By: #### 4 [id number] ####[place] [address]Dr. Uriah Noriega Note: Comment Normal [facility] Comment on above: Result Comment: The Pap smear is a screening test designed to aid in the detection of premalignant and malignant conditions of the uterine cervix. It is not a diagnostic procedure and should not be used as the sole means of detecting cervical cancer. Both false-positive and false-negative reports do occur. . Performed at: WB Performed By: #### 4 [id number] ####[facility] [address] [place], [place] [address]Bb. Uriah Noriega Performed by: Comment Normal [facility] Comment on above: Result Comment: oJnn Deng, Netting Inspector (ASCP) Performed at: WB Performed By: #### 4 [id number] ####[facility] [address] [place], [place] [address]Tm. Uriah Noriega QC reviewed by: Comment Normal [facility] Comment on above: Result Comment: Arleen Larios, Netting Inspector Performed at: WB Performed By: #### 4 [id number] ####[facility] [address] [place], [place] [address]Hf. Uriah Noriega Specimen adequacy: Comment Normal [facility] Comment on above: Result Comment: Sati sfactory for evaluation. Endocervical and/or squamous metaplastic cells (endocervical component) are present. Performed at: WB Performed By: #### 4 [id number] ####[facility] [address] [place] [id number]. Uriah Noriega MG MAMM SCREEN 3D [place] CADon 11-13-2022 MG MAMM SCREEN 3D [place] CAD Patient: EREN ARCHIBALD Exam Date: 11/13/2022 : 1965 Gender:F Ordering : ZENA DEUTSCH [facility] Admission #: [id number] Family : Order #: [id number] CLICK HERE TO VIEW EXAM RADIOLOGY REPORT [...] lung cancer at age 72. LOCATION: [facility] BREAST COMPOSITION: Heterogeneously dense,which may obscure small [...] MD on 11/14/2022 at 10:16 Normal [facility] US SINGLE QUAD RT UPPERon US SINGLE [...] INEZ FORD Date: 2022-08-26 16:42 Normal [facility] CRPon 08-15-2022 CRP [Mass/Vol] mg/L Normal <=1.0 [facility] Comment on above: Performed By: #### C RP #### [facility] [address] [place], [place] [address] Dr. Uriah Noriega SED RATE WESTERGRENon 2021 SED RATE 32 mm/hr Critically high <=30 [facility] Comment on above: Performed By: #### S EDR ####[facility] [address] [place], [place] [address]QaDr. Uriah Noriega MRI ABDOMEN WO W CONon [...] by: RADHA RODRIGUEZ Date: 2022-08-09 14:14 Normal [facility] US PELVIS AND TRANSVAGon US PELVIS AND [...] by: INEZ FORD Date: 2022-08-07 15:40 Normal [facility] CT ABD/PELV W CONon 07-13-20 CT ABD/PELV [...] INEZ FORD Date: 2022-07-13 06:30 Normal [facility] OCC BLD IMMUNOASSAYon 2021 OCCULT BLOOD Negative Normal NEGATIVE [facility] Comment on above: Performed By: #### O MANISHA ####[facility] [address] [place] [address]Dr. Uriah Noriega CBC AUTO DIFFon 07-10-2022 BASO # 0.1 103/ul Normal 0.0-0.1 [facility] Comment on above: Performed By: #### C BC #### [facility] [address] [place] [address] Dr. Uriah Noriega Basophils/100 WBC (Bld) 0.9 % Normal 0.2-2.0 [facility] Comment on above: Performed By: #### C BC #### [facility] [address] [place] [address] Dr. Uriah Noriega EO # 0.4 103/ul Normal 0.0-0.7 [facility] Comment on above: Performed By: #### C BC #### [facility] [address] [place] [address] [address] Uriah Noriega Eosinophils/100 WBC (Bld) 5.6 % Normal 0.9-7.0 [facility] Comment on above: Performed By: #### C BC #### [facility] [address] [place] [address] [address] Uriah Noriega Erythrocyte distribution width (RBC) [Ratio] 12.4 % Normal 11.0-15.0 [facility] Comment on above: Performed By: #### C BC #### [facility] [address] [place] [address] [address] Uriah Noriega Hematocrit (Bld) [Volume fraction] 42.3 % Normal 36.0-48.0 [facility] Comment on above: Performed By: #### C BC #### [facility] [address] [place] [address] Dr. Uriah Noriega Hemoglobin (Bld) [Mass/Vol] 13.8 g/dL Normal 12.0-16.0 [facility] Comment on above: Performed By: #### C BC #### [facility] [address] [place] [address] Dr. Uriah Noriega IG # 0.01 10e3/ul Normal 0.00-0.03 [facility] Comment on above: Performed By: #### C BC #### [facility] [address] [place] [address] Dr. Uriah Noriega IG % 0.2 % Normal 0.0-0.5 [facility] Comment on above: Performed By: #### C BC #### [facility] [address] [place] [address] Dr. Uriah Noriega LYMPH # 1.8 103/ul Normal 1.2-3.8 [facility] Comment on above: Performed By: #### C BC #### [facility] [address] [place] [address] Dr. Uriah Noriega Lymphocytes/100 WBC (Bld) 27.5 % Normal 20.5-60.0 [facility] Comment on above: Performed By: #### C BC #### [facility] [address] [place] [address] Dr. Uriah Noriega MANUAL DIFF REQ NO Normal [facility] Comment on above: Performed By: #### C BC #### [facility] [address] [place] [address] Dr. Uriah Noriega MCH (RBC) [Entitic mass] 28.6 pg Normal 26.7-34.0 [facility] Comment on above: Performed By: #### C BC #### [facility] [address] [place] [address] Dr. Uriah Noriega MCHC (RBC) [Mass/Vol] 32.6 g/dL Normal 29.9-35.2 [facility] Comment on above: Performed By: #### C BC #### [facility] [address] [place] [address] [address] Uriah Noriega MCV (RBC) [Entitic vol] 87.8 fL Normal 81.0-99.0 [facility] Comment on above: Performed By: #### C BC #### [facility] [address] [place] [address] [address] Uriah Noriega MONO # 0.6 103/ul Normal 0.3-0.8 [facility] Comment on above: Performed By: #### C BC #### [facility] [address] [place] [address] Dr. Uriah Noriega Monocytes/100 WBC (Bld) 9.4 % Normal 1.7-12.0 [facility] Comment on above: Performed By: #### C BC #### [facility] [address] [place] [address] Dr. Uriah Noriega NEUT # 3.7 103/ul Normal 1.4-6.5 [facility] Comment on above: Performed By: #### C BC #### [facility] [address] [place] [address] Dr. Uriah Noriega Neutrophils/100 WBC (Bld) 56.4 % Normal 43.0-75.0 [facility] Comment on above: Performed By: #### C BC #### [facility] [address] [place] [address] Dr. Uriah Noriega Platelet mean volume (Bld) [Entitic vol] 10.4 fL Normal 9.5-13.5 [facility] Comment on above: Performed By: #### C BC #### [facility] [address] [place] [address] Dr. Uriah Noriega PLT 314 103/ul Normal 150-450 [facility] Comment on above: Performed By: #### C BC #### [facility] [address] [place] [address] Dr. Uriah Noriega RBC 4.82 106/ul Normal 4.20-5.40 [facility] Comment on above: Performed By: #### C BC #### [facility] [address] [place] [address] [address] Uriah Noriega WBC 6.6 103/ul Normal 4.0-11.0 [facility] Comment on above: Performed By: #### C BC #### [facility] [address] [place] [address] [address] Uriah Noriega CRPon 07-10-2022 CRP 8.1 mg/dL Critically high <=1.0 [facility] Comment on above: Performed By: #### C RP, CMP ####[facility] [address] [place] [id number]. Uriah Noriega CULTURE URINEon 07-10-2022 CULTURE URINE Culture Observations : MODERATE GROWTH OF MIXED GENITAL ELOISA. NO POTENTIAL PATHOGENS SEEN. Normal [facility] Comment on above: Performed By: #### U RCX ####[facility] [address] [place] [address]Dr. Uriah Noriega PREG HCG QUALon 07-10-2022 , QUAL Negative Normal NEGATIVE [facility] Comment on above: Performed By: #### P REG #### [facility] [address] [place] [address] Dr. Uriah Noriega PROF 14(COMP METB)on 022 Albumin [Mass/Vol] 3.5 g/dL Normal 3.4-5.0 [facility] Comment on above: Performed By: #### C RP, CMP #### [facility] [address] [place] [address] Dr. Uriah Noriega Albumin/Globulin [Mass ratio] 0.9 {ratio} Normal [facility] Comment on above: Performed By: #### C RP, CMP #### [facility] [address] [place] [address] Dr. Uriah Noriega ALP [Catalytic activity/Vol] 67 U/L Normal 46-116 [facility] Comment on above: Performed By: #### C RP, CMP #### [facility] [address] [place] [address] [address] Uriah Noriega ALT [Catalytic activity/Vol] 19 U/L Normal 14-59 [facility] Comment on above: Performed By: #### C RP, CMP #### [facility] [address] [place] [address] [address] Uriah Noriega Anion gap [Moles/Vol] 11.9 mmol/L Normal [facility] Comment on above: Performed By: #### C RP, CMP #### [facility] [address] [place] [address] [address] Uriah Noriega AST [Catalytic activity/Vol] 21 U/L Normal 15-37 [facility] Comment on above: Performed By: #### C RP, CMP #### [facility] [address] [place] [address] [address] Uriah Noriega Bilirubin [Mass/Vol] 0.3 mg/dL Normal 0.2-1.0 [facility] Comment on above: Performed By: #### C RP, CMP #### [facility] [address] [place] [address] Dr. Uriah Noriega Calcium [Mass/Vol] 8.9 mg/dL Normal 8.5-10.1 [facility] Comment on above: Performed By: #### C RP, CMP #### [facility] [address] [place] [address] Dr. Uriah Noriega Chloride [Moles/Vol] 104 mmol/L Normal 98-107 [facility] Comment on above: Performed By: #### C RP, CMP #### [facility] [address] [place] [address] Dr. Uriah Noriega CO2 [Moles/Vol] 27.4 mmol/L Normal 21.0-32.0 [facility] Comment on above: Performed By: #### C RP, CMP #### [facility] [address] [place] [address] Dr. Uriah Noriega Creatinine [Mass/Vol] 0.75 mg/dL Normal 0.55-1.02 [facility] Comment on above: Performed By: #### C RP, CMP #### [facility] [address] [place] [address] Dr. Uriah Noriega EGFR-AF AZERBAIJANI >60 Normal >=60 [facility] Comment on above: Performed By: #### C RP, CMP #### [facility] [address] [place] [address] [address] Uriah Noriega EGFR-NON AF AZERBAIJANI >60 Normal >=60 [facility] Comment on above: Performed By: #### C RP, CMP #### [facility] [address] [place] [address] [address] Uriah Noriega Globulin (S) [Mass/Vol] 4.0 g/dL Normal [facility] Comment on above: Performed By: #### C RP, CMP #### [facility] [address] [place] [address] [address] Uriah Noriega Glucose [Mass/Vol] 92 mg/dL Normal 74-106 [facility] Comment on above: Performed By: #### C RP, CMP #### [facility] [address] [place] [address] [address] Uriah Noriega Potassium [Moles/Vol] 4.3 mmol/L Normal 3.5-5.1 [facility] Comment on above: Performed By: #### C RP, CMP #### [facility] [address] [place] [address] [address] Uriah Noriega Protein [Mass/Vol] 7.5 g/dL Normal 6.4-8.2 [facility] Comment on above: Performed By: #### C RP, CMP #### [facility] [address] [place] [address] [address] Uriah Noriega Sodium [Moles/Vol] 139 mmol/L Normal 136-145 [facility] Comment on above: Performed By: #### C RP, CMP #### [facility] [address] [place] [address] [address] Uriah Noriega Urea nitrogen [Mass/Vol] 13.0 mg/dL Normal 7.0-18.0 [facility] Comment on above: Performed By: #### C RP, CMP #### [facility] [address] [place] [address] [address] Uriah Noriega Urea nitrogen/Creatinine [Mass ratio] 17.3 mg/mg Normal [facility] Comment on above: Performed By: #### C RP, CMP #### [facility] [address] [place] [address] [address] Uriah Noriega SED RATE [facility] 2021 SED RATE 77 mm/hr Critically high <=30 [facility] Comment on above: Performed By: #### S EDR #### [facility] [address] [place] [address] [address] Uriah Noriega UA (CLEAN/CATCH) HOSPICE EXECUTIVE DIRECTOR/MICRO I F IND.on 07-10-2022 Bilirubin Ql (U) SMALL Abnormal NEGATIVE [facility] Comment on above: Performed By: #### U ACSIND, UMICRO #### [facility] [address] [place] [address] [address] Uriah Nroiega Clarity (U) CLOUDY Abnormal CLEAR [facility] Comment on above: Performed By: #### U ACSIND, UMICRO #### [facility] [address] [place] [address] [address] Uriah Noriega Color (U) YELLOW Normal YELLOW [facility] Comment on above: Performed By: #### U ACSIND, UMICRO #### [facility] [address] [place] [address] [address] Uriah Noriega Glucose Ql (U) Negative Normal NEGATIVE [facility] Comment on above: Performed By: #### U ACSIND, UMICRO #### [facility] [address] [place] [address] [address] Uriah Noriega Hemoglobin Ql (U) TRACE-INTACT Abnormal NEGATIVE [facility] Comment on above: Performed By: #### U ACSIND, UMICRO #### [facility] [address] [place] [address] [address] Uriah Noriega Ketones Ql (U) 15 mg/dl Abnormal NEGATIVE [facility] Comment on above: Performed By: #### U ACSIND, UMICRO #### [facility] [address] [place] [address] [address] Uriah Noriega LEUKOCYTES TRACE Abnormal NEGATIVE [facility] Comment on above: Performed By: #### U ACSIND, UMICRO #### [facility] [address] [place] [address] [address] Uriah Noriega Nitrite Ql (U) Negative Normal NEGATIVE [facility] Comment on above: Performed By: #### U ACSDANY UMICRO #### [facility] [address] [place] [address] [address] Uriah Noriega pH (U) 6.0 [pH] Normal 5-9 [facility] Comment on above: Performed By: #### U CHRISTEL UMICRO #### [facility] [address] [place] [address] [address] Uriah Noriega SPEC GRAVITY >=1.030 Abnormal 1.005-<=1.025 [facility] Comment on above: Performed By: #### U CHRISTEL UMICRO #### [facility] [address] [place] [address] Dr. Uriah Noriega UA PROTEIN Negative Normal NEGATIVE/ TRACE [facility] Comment on above: Performed By: #### U CHRISTEL UMICRO #### [facility] [address] [place] [address] Dr. Uriah Noriega UR MICRO IND INDICATED Normal [facility] Comment on above: Performed By: #### U CHRISTEL UMICRO #### [facility] [address] [place] [address] Dr. Uriah Noriega Urobilinogen Qn (U) 0.2 {Anabelle'U}/dL Normal 0.2 - 1. 0 [facility] Comment on above: Performed By: #### U CHRISTEL UMICRO #### [facility] [address] [place] [address] Dr. Uriah Noriega URINE MICROSCOPIC ONLYon BACTERIA LARGE Abnormal NONE SEEN [facility] Comment on above: Performed By: #### U CHRISTEL UMICRO #### [facility] [address] [place] [address] Dr. Uriah Noriega Bacteria identified Cx Nom (U) INDICATED Normal [facility] Comment on above: Performed By: #### U CHRISTEL UMICRO #### [facility] [address] [place] [address] [address] Uriah Noriega CAST NONE SEEN Normal NONE SEEN [facility] Comment on above: Performed By: #### U ACSDANY, UMICRO #### [facility] [address] [place] [address] [address] Uriah Noriega Crystals LM Nom (Urine sed) NONE SEEN Normal NONE SEEN [facility] Comment on above: Performed By: #### U ACSDANY, UMICRO #### [facility] [address] [place] [address] [address] Uriah Noriega Epithelial cells LM Ql (Urine sed) NONE SEEN Normal NONE SEEN /RARE [facility] Comment on above: Performed By: #### U ACSDANY, UMICRO #### [facility] [address] [place] [address] Dr. Uriah Noriega MUCOUS TRACE Abnormal NONE SEEN [facility] Comment on above: Performed By: #### U ACSDANY, UMICRO #### [facility] [address] [place] [address] Dr. Uriah Noriega RBC NONE SEEN Abnormal 0-2 [facility] Comment on above: Performed By: #### U ACSDANY, UMICRO #### [facility] [address] [place] [address] Dr. Uriah Noriega WBC 0-2 Abnormal NONE SEEN [facility] Comment on above: Performed By: #### U ACSDANY, UMICRO #### [facility] [address] [place] [address] Dr. Uriah Noriega Pathology Noteon 11-07-2021 Pathology Note [id number] 0CD:127 Normal [facility] Outside Colonoscopyon 2020 Outside Colonoscopy [id number] CD:127 Normal [facility] Lab Reportson 10-31-2021 Lab Reports [id number] 0CD:127 Normal [facility] October 18, 2021 KIRSTEN DEUTSCH, [address] [place] [address] Re: EREN ARCHIBALD Date of : 1965 Thank you for your referral of Eren Archibald who was seen on consultation on 10/12/2021, for colonoscopy. I have enclosed my consultation note for your review. I will be happy to follow Eren. Sincerely, Radha Frankel MD General Surgery [facility] Consent for Procedure/Surger yon 10-17-2021 Consent for Procedure/Surgery [id number] 0CD:127 [facility] Ambulatory Clinical Summaryo n 10-12-2021 Ambulatory Clinical Summary {[id number] }[id number] [facility] Provider Letteron 09-23-2021 Provider Letter September 23, 2021 September 23, 2021 EREN ARCHIBALD [address] [place] [address] EREN ARCHIBALD 1965 Dear Eren_ , We [...] to this matter. Sincerely, General Surgery/Digestive Health [phone] [facility] Physician Referralon 021 Physician Referral [id number] 0CD:127 [facility] Vital Signs Date Time Vital Sign Value Performing Clinician Joe marino 05-04-2024 10:44-0400 Body height 154.94 cm [facility] 05-04-2024 10:44-0400 Body mass index (BMI) [Ratio] 28.3 kg/m2 [facility] 05-04-2024 10:44-0400 Body temperature 98 [degF] [facility] 05-04-2024 10:44-0400 Body weight 68.03 kg [facility] 05-04-2024 10:44-0400 Diastolic blood pressure 79 mm[Hg] [facility] 05-04-2024 10:44-0400 Heart rate 91 /min [facility] 05-04-2024 10:44-0400 Respiratory rate 18 /min [facility] [facility] 05-04-2024 10:44-0400 SaO2% (BldA) [Mass fraction] 98 % [facility] 05-04-2024 10:44-0400 Systolic blood pressure 140 mm[Hg] [facility] Encounters Encounter Date Encounter Type Care Provider Facility Start: 05-04-2024 End: 05-04-2024 ambulatory [facility] Work Phone: Start: 05-04-2024 End: 05-04-2024 Patient encounter procedure [facility] Work Phone: Start: 01-03-2023 End: 01-03-[address] SAMMI LEES . Facility:[facility] Start: 11-13-2022 End: 11-14-2022 ambulatory TRAFFIC ADMINISTRATOR KIRSTEN AICHHOLZ Facility:[facility] Start: 08-26-2022 End: 08-27-2022 ambulatory TRAFFIC ADMINISTRATOR KIRSTEN AICHHOLZ Facility:[facility] Start: 08-15-2022 End: 08-16-2022 ambulatory TRAFFIC ADMINISTRATOR KIRSTEN AICHHOLZ Facility:[facility] Start: 08-07-2022 End: 08-08-2022 ambulatory TRAFFIC ADMINISTRATOR KIRSTEN AICHHOLZ Facility:[facility] Start: 07-12-2022 End: 07-13-2022 ambulatory TRAFFIC ADMINISTRATOR KIRSTEN AICHHOLZ Facility:[facility] Start: 07-11-2022 End: 07-11-2022 ambulatory TRAFFIC ADMINISTRATOR KIRSTEN AICHHOLZ Facility:[facility] Start: 07-10-2022 End: 07-11-2022 ambulatory TRAFFIC ADMINISTRATOR KIRSTEN AICHHOLZ Facility:[facility] Plan of Treatment Date Care Activity Detail Author [facility] Payers Date Payer Category Payer Unknown [id number] 2.16.84 [id number] 1965 Unknown [id number] 2.16.84 [id number] 1966 Unknown [id number] 2.16.84 [id number] 1966 Unknown [id number] 2.16.84 [id number] 1966 Unknown [id number] 2.16.84 [id number] 1966 Unknown [id number] 2.16.84 [id number] 1966 Unknown [id number] 2.16.84 [id number] 1966 Unknown [id number] 2.16.84 [id number] 1959 Unknown [id number] 1958 Unknown [id number] Social History Date Type Detail Facility Tobacco smoking stat [facility] Unknown if ever smoked [facility] Work Phone: Start: 1965 Sex Assigned At Female F [facility] Start: 05-04-2024 [facility] (finding) [facility] Clinical Note 10-12-2021 Note Date & [...] Mother. Primary malignant neoplasm of lung: Father. [facility] Comment on above: Result Comment: Elec tronically Signed By: APRIL NUNES, Radha Rojas\.ramsey\Date and Time Signed: 10/12/21 14:44 EST Evaluation note Note Date & Type Note Facility Evaluation note No assessment information availa ble [facility] Work Phone: Evaluation note Note Date & Type Note Facility Evaluation note Diagnosis Onset Date Contact with and (suspected) exposure to covid-19 noneactive [facility] Work Phone: Summary Purpose Family History No [...] section and content) DATE CREATED AUTHOR 11/08/2021 [facility] DATE CREATED AUTHOR AUTHOR'S ORGANIZ ATION 01/13/2023 [facility] Care Teams (unrecognized sec tion [...] BE BASED ON THE PRIMARY CLINICAL RECORDS. [facility]. provides no warranty or guarantee of the accuracy or completeness of information in this document.
== END 2024-11-17 10:44 | disposition home or self-care (01) ==
LOC: MAMMO 10:44
PROVIDERS: PCP Nurse Practitioner; Visit Provider Nurse Practitioner
DX: Z12.31 Encounter for screening mammogram for malignant neoplasm of breast (principal); Z80.1 Family history of malignant neoplasm of trachea, bronchus and lung
CPT/HCPCS: 77063; 77067

== ENCOUNTER 2025-01-12 10:29 | Outpatient (OUT) | payer OTHER, SELFPAY ==
--- NOTE | 2025-01-12 10:34 | XR_ITS ---
[facility] [place] [id number] Patient Name: EREN ARCHIBALD MRN: [id number] date: 1965 Sex: F Assigned Patient Location: [facility] Current Patient Location: [facility] Accession/Order Number: [id number] Exam Date: 01/12/2025 13:29 Report Date: 01/12/2025 13:30 At the request of: RITA FLORES NP Procedure: XR knee LT 2V LEFT KNEE - 2 VIEWS COMPARISON: None CLINICAL DATA: Chronic left knee pain, greater when ambulating. No injury. AP and lateral views were obtained. No acute fracture or dislocation is identified. No disproportionate joint space narrowing is seen. There is minor squaring off the articular margins. There is no significant knee effusion or soft tissue swelling. XR/XR knee LT 2V IMPRESSION: MINIMAL DEGENERATIVE CHANGE. NO ACUTE PLAIN FILM FINDINGS. Impression dictated by: Yu Jackson M.D.01/12/2025 1:30 PM [facility] Electron[facility] authenticated by: [id number] Y Date: 01/12/2025 13:30
--- OUTSIDE RECORDS SUMMARY | 2025-01-12 10:48 | XMS_ITS | CCD ---
Author Organization [facility] InformFormerly [facility] Care Team Providers Care Iron Pourer Name Role Phone YOANA ., DR CHAPA Admitting Unavailabl e KARASIK ., DR CHAPA Attending Unavailabl e AICHHOLZ, ASSISTANT AUTO CENTER MANAGER CADE Primary Care Unavailable KARASIK ., DR CHAPA Consulting Unavailabl e AICHHOLZ, ASSISTANT AUTO CENTER MANAGER CADE Admitting Unavailable AICHHOLZ, ASSISTANT AUTO CENTER MANAGER CADE Attending Unavailable AICHHOLZ, ASSISTANT AUTO CENTER MANAGER CADE Primary Care Unavailable DR AROLDO ENGLISH V Consulting Unavailable AICHHOLZ, ASSISTANT AUTO CENTER MANAGER CADE Consulting Unavailable AICHHOLZ, ASSISTANT AUTO CENTER MANAGER CADE Admitting Unavailable AICHHOLZ, ASSISTANT AUTO CENTER MANAGER CADE Attending Unavailable AICHHOLZ, ASSISTANT AUTO CENTER MANAGER CADE Primary Care Unavailable AICHHOLZ, ASSISTANT AUTO CENTER MANAGER CADE Consulting Unavailable DR INEZ FORD Consulting Unavailable AICHHOLZ, ASSISTANT AUTO CENTER MANAGER CADE Admitting Unavailable AICHHOLZ, ASSISTANT AUTO CENTER MANAGER CADE Attending Unavailable AICHHOLZ, ASSISTANT AUTO CENTER MANAGER CADE Primary Care Unavailable AICHHOLZ, ASSISTANT AUTO CENTER MANAGER CADE Consulting Unavailable AICHHOLZ, ASSISTANT AUTO CENTER MANAGER CADE Admitting Unavailable AICHHOLZ, ASSISTANT AUTO CENTER MANAGER CADE Attending Unavailable AICHHOLZ, ASSISTANT AUTO CENTER MANAGER CADE Primary Care Unavailable AICHHOLZ, ASSISTANT AUTO CENTER MANAGER CADE Consulting Unavailable DR INEZ FORD Consulting Unavailable RADHA RODRIGUEZ Consulting Unavailable AICHHOLZ, ASSISTANT AUTO CENTER MANAGER CADE Admitting Unavailable AICHHOLZ, ASSISTANT AUTO CENTER MANAGER CADE Attending Unavailable AICHHOLZ, ASSISTANT AUTO CENTER MANAGER CADE Primary Care Unavailable AICHHOLZ, ASSISTANT AUTO CENTER MANAGER CADE Consulting Unavailable AICHHOLZ, ASSISTANT AUTO CENTER MANAGER CADE Admitting Unavailable AICHHOLZ, ASSISTANT AUTO CENTER MANAGER CADE Attending Unavailable AICHHOLZ, ASSISTANT AUTO CENTER MANAGER CADE Primary Care Unavailable AICHHOLZ, ASSISTANT AUTO CENTER MANAGER CADE Consulting Unavailable DR INEZ FORD Consulting Unavailable AICHHOLZ, ASSISTANT AUTO CENTER MANAGER CADE Admitting Unavailable AICHHOLZ, ASSISTANT AUTO CENTER MANAGER CADE Attending Unavailable AICHHOLZ, ASSISTANT AUTO CENTER MANAGER CADE Primary Care Unavailable ZENA DEUTSCH Consulting Unavailable CADE DEUTSCH Attending Unavailable CADE DEUTSCH Attending Unavailable Dung Valdez MD Primary Care Provider La Nena VALENCIA, Cade Unavailable Allergies Allergy Classification Reported Allergen(s) Allergy Type Date of Onset Reaction(s) Facility (3 sources) Bacitracin Drug Allergy 05-14-2024 Unknown [facility] Work Phone: Medications Current Medications Medication Drug Class(es) Dates Sig (Normalized) Sig (Original) amoxicillin 875 mg / clavulanate 125 mg oral tablet (1 source) Penicillin-class Antibacterial Start: 05-04-2024 take 1 tablet by mouth every twelve hours Amoxicillin-Pot Clavulanate Active 1 TAB PO Every 12 hours 07 09May 04, 2024 12:00am meloxicam 15 mg disintegrating oral tablet (2 sources) Nonsteroidal Anti-inflammatory Drug Start: 01-06-2025 End: 02-05-2025 take 1 tablet by mouth once daily Meloxicam 15 MG tablet dispersible Indications: Chronic pain of left knee Take 15 mg by mouth Daily 30 tablet 1 01/06/2025 02/05/2025 Active Problems Active Problems Problem Classification Problem Date Documented Date Episodic/Chronic Acquired foot deformities (6 sources) Acquired hammer toe of left foot; Translations: [Other hammer toe(s) (acquired), left foot] Onset: 05-14-2024 05-14-2024 Chronic Disorders of lipid metabolism (3 sources) Hyperlipidemia; Translations: [Hyperlipidemia, unspecified] Onset: 05-14-2024 05-14-2024 Chronic Diverticulosis and diverticulitis (3 sources) Diverticular disease; Translations: [Diverticulosis of intestine, part unspecified, without perforation or abscess without bleeding] Onset: 05-14-2024 05-14-2024 Chronic Esophageal disorders (3 sources) Gastroesophageal reflux disease; Translations: [Gastro-esophageal reflux disease without esophagitis] Onset: 05-14-2024 05-14-2024 Chronic Immunizations and screening for infectious disease (2 sources) Encounter for screening for human papillomavirus (HPV); Translations: [Contact with or exposure to other viral diseases] Onset: 01-07-2023 05-04-2024 Episodic Menopausal disorders (3 sources) Menopausal symptom; Translations: [Menopausal and female climacteric states] Onset: 05-14-2024 05-14-2024 Chronic Other ear and sense organ disorders (4 sources) Hearing loss; Translations: [Unspecified hearing loss, unspecified ear] Onset: 05-14-2024 05-04-2024 Chronic Other non-traumatic joint disorders (4 sources) Pain in left knee; Translations: [Pain in joint, lower leg] Onset: 01-06-2025 01-06-2025 Episodic Other nutritional; endocrine; and metabolic disorders (5 sources) Body mass index 25-29 - overweight; Translations: [Overweight] Onset: 05-14-2024 05-14-2024 Episodic Residual codes; unclassified (1 source) Family history of malignant neoplasm of trachea, bronchus and lung; Translations: [FAM HX MALIG NEOPLSM TRACH BRON LNG] Onset: 11-17-2022 Episodic Unclassified (2 sources) Chronic pain of left knee 01-06-2025 Past or Other Problems Problem Classification Problem Date Documented Date Episodic/Chronic Abdominal pain (8 sources) Right lower quadrant pain; Translations: [Generalized abdominal pain] Onset: 07-11-2022 Episodic Other and unspecified benign neoplasm (3 sources) History of polyp of colon; Translations: [History of colonic polyps] Onset: 05-14-2024 05-14-2024 Episodic Other hematologic conditions (4 sources) Elevated erythrocyte sedimentation rate; Translations: [ELEVATED ERYTHROCYTE SED RATE] Onset: 08-15-2022 Episodic Other liver diseases (4 sources) Hepatomegaly, not elsewhere classified; Translations: [HEPATOMEGALY NEC] Onset: 08-26-2022 Episodic Other non-traumatic joint disorders (3 sources) Disorder of joint of foot; Translations: [Other specified joint disorders, left ankle and foot] Onset: 05-14-2024 05-14-2024 Episodic Other screening for suspected conditions (not mental disorders or infectious disease) (11 sources) Encounter for screening for malignant neoplasm of cervix; Translations: [Encounter for screening mammogram for malignant neoplasm of breast] Onset: 11-13-2022 Episodic Ovarian cyst (1 source) Unspecified ovarian cyst, right side; Translations: [UNSPECIFIED OVARIAN CYST RIGHT SIDE] Onset: 08-10-2022 Episodic Results Test Name Value Interpretation Reference Range Facil ity PAP ACOG PANEL 2: 30 to 65on 01-12-2023 . . Normal [facility] Comment on above: Result Comment: Perf ormed at: WB Performed By: #### [id number] ####[facility] [address] [place] [id number]. Uriah Noriega Age Gdln ACOG Testing 30-65 Normal [facility] Comment on above: Performed By: #### 4 [id number] ####[facility] [address] [place] [id number]. Uriah Noriega DIAGNOSIS: Comment Normal [facility] Comment on above: Result Comment: NEGA TIVE FOR INTRAEPITHELIAL LESION OR MALIGNANCY. CELLULAR CHANGES ASSOCIATED WITH ATROPHY ARE PRESENT. THIS SPECIMEN WAS RESCREENED PART OF OUR MANAGER COMMUNITY DEVELOPMENT PROGRAM. Performed at: WB Performed By: #### 4 [id number] ####[place] [address]DrAlfredo Noriega HPV Aptima QNSPAP Normal [facility] Comment on above: Result Comment: Test not performed. Liquid based PAP vial contained insufficient specimen for molecular testing; likely a consequence of insufficient cellularity in original collection. This nucleic acid amplification test detects fourteen high-risk HPV types (16,18,31,33,35,39,45,51,52,56,58,59,66,68) without differentiation. Performed at: =G Performed By: #### 4 [id number] ####[facility] [address] [place], [place] [address]DrAlfredo Noriega HPV Genotype Reflex Comment Normal [facility] Comment on above: Result Comment: Crit eria not met, HPV Genotype not performed. Performed at: WB Performed By: #### 4 [id number] ####[facility] [address] [place], [place] [address]DrAlfredo Noriega Methodology: Comment Normal [facility] Comment on above: Result Comment: This liquid based ThinPrep(R) pap test was screened with the use of an image guided system. Performed at: WB Performed By: #### 4 [id number] ####[facility] [address] [place] [address]Dr. Uriah Noriega Note: Comment Normal [facility] Comment on above: Result Comment: The Pap smear is a screening test designed to aid in the detection of premalignant and malignant conditions of the uterine cervix. It is not a diagnostic procedure and should not be used as the sole means of detecting cervical cancer. Both false-positive and false-negative reports do occur. . Performed at: WB Performed By: #### 4 [id number] ####[facility] [address] [place] [address]Dr. Uriah Noriega Performed by: Comment Normal [facility] Comment on above: Result Comment: Jonn Deng, Glass Mechanic (ASCP) Performed at: WB Performed By: #### 4 [id number] ####[facility] [address] [place] [address]Dr. Uriah Noriega QC reviewed by: Comment Normal [facility] Comment on above: Result Comment: Arleen Larios, Glass Mechanic Performed at: WB Performed By: #### 4 [id number] ####[facility] [address] [place] [id number]. Uriah Noriega Specimen adequacy: Comment Normal [facility] Comment on above: Result Comment: Sati sfactory for evaluation. Endocervical and/or squamous metaplastic cells (endocervical component) are present. Performed at: WB Performed By: #### 4 [id number] ####[facility] [address] [place] [address]DrAlfredo Noriega MG MAMM SCREEN 3D [place] CADon 11-13-2022 MG MAMM SCREEN 3D [place] CAD Patient: EREN ARCHIBALD Exam Date: 11/13/2022 : 1965 Gender:F Ordering : ZENA DEUTSCH CNP Admission #: [id number] Family : Order #: [id number] CLICK HERE TO VIEW EXAM RADIOLOGY REPORT [...] lung cancer at age 72. LOCATION: [facility] BREAST COMPOSITION: Heterogeneously dense,which may obscure [...] MD on 11/14/2022 at 10:16 Normal [facility] US SINGLE QUAD RT UPPERon US [...] INEZ FORD Date: 2022-08-26 16:42 Normal [facility] CRPon 08-15-2022 CRP [Mass/Vol] mg/L Normal <=1.0 [facility] Comment on above: Performed By: #### C RP #### [facility] [address] [place] [address] Dr. Uriah Noriega [facility] SED RATE 32 mm/hr Critically high <=30 [facility] Comment on above: Performed By: #### S EDR ####[facility] [address] [place], [place] [address]GzDr. Uriah Noriega MRI ABDOMEN WO W CONon [...] by: RADHA RODRIGUEZ Date: 2022-08-09 14:14 Normal [facility] US PELVIS AND TRANSVAGon US PELVIS [...] by: INEZ FORD Date: 2022-08-07 15:40 Normal [facility] CT ABD/PELV W CONon 07-13-[address] ABD/PELV W CON EXAMINATION: CT ABD/PELV [...] INEZ FORD Date: 2022-07-13 06:30 Normal [facility] OCC BLD IMMUNOASSAYon 2021 OCCULT BLOOD Negative Normal NEGATIVE [facility] Comment on above: Performed By: #### O MANISHA ####[facility] [address] [place] [address]Dr. Uriah Noriega CBC AUTO DIFFon 07-10-2022 BASO # 0.1 103/ul Normal 0.0-0.1 [facility] Comment on above: Performed By: #### C BC #### [facility] [address] [place] [address] [address] Uriah Noriega Basophils/100 WBC (Bld) 0.9 % Normal 0.2-2.0 [facility] Comment on above: Performed By: #### C BC #### [facility] [address] [place] [address] [address] Uriah Noriega EO # 0.4 103/ul Normal 0.0-0.7 [facility] Comment on above: Performed By: #### C BC #### [facility] [address] [address] [address] Uriah Noriega Eosinophils/100 WBC (Bld) 5.6 % Normal 0.9-7.0 [facility] Comment on above: Performed By: #### C BC #### [facility] [address] [place] [address] Dr. Uriah Noriega Erythrocyte distribution width (RBC) [Ratio] 12.4 % Normal 11.0-15.0 [facility] Comment on above: Performed By: #### C BC #### [facility] [address] [place] [address] Dr. Uriah Noriega Hematocrit (Bld) [Volume fraction] 42.3 % Normal 36.0-48.0 [facility] Comment on above: Performed By: #### C BC #### [facility] [address] [place] [address] Dr. Uriah Noriega Hemoglobin (Bld) [Mass/Vol] 13.8 g/dL Normal 12.0-16.0 [facility] Comment on above: Performed By: #### C BC #### [facility] [address] [place] [address] Dr. Uriah Noriega IG # 0.01 10e3/ul Normal 0.00-0.03 [facility] Comment on above: Performed By: #### C BC #### [facility] [address] [place] [address] Dr. Uriah Noriega IG % 0.2 % Normal 0.0-0.5 [facility] Comment on above: Performed By: #### C BC #### [facility] [address] [place] [address] Dr. Uriah Noriega LYMPH # 1.8 103/ul Normal 1.2-3.8 [facility] Comment on above: Performed By: #### C BC #### [facility] [address] [place] [address] Dr. Uriah Noriega Lymphocytes/100 WBC (Bld) 27.5 % Normal 20.5-60.0 [facility] Comment on above: Performed By: #### C BC #### [facility] [address] [place] [address] Dr. Uriah Noriega MANUAL DIFF REQ NO Normal [facility] Comment on above: Performed By: #### C BC #### [facility] [address] [place] [address] Dr. Uriah Noriega MCH (RBC) [Entitic mass] 28.6 pg Normal 26.7-34.0 [facility] Comment on above: Performed By: #### C BC #### [facility] [address] [place] [address] Dr. Uriah Noriega MCHC (RBC) [Mass/Vol] 32.6 g/dL Normal 29.9-35.2 [facility] Comment on above: Performed By: #### C BC #### [facility] [address] [place] [address] Dr. Uriah Noriega MCV (RBC) [Entitic vol] 87.8 fL Normal 81.0-99.0 [facility] Comment on above: Performed By: #### C BC #### [facility] [address] [place] [address] Dr. Uriah Noriega MONO # 0.6 103/ul Normal 0.3-0.8 [facility] Comment on above: Performed By: #### C BC #### [facility] [address] [place] [address] Dr. Uriah Noriega Monocytes/100 WBC (Bld) 9.4 % Normal 1.7-12.0 [facility] Comment on above: Performed By: #### C BC #### [facility] [address] [place] [address] Dr. Uriah Noriega NEUT # 3.7 103/ul Normal 1.4-6.5 [facility] Comment on above: Performed By: #### C BC #### [facility] [address] [place] [address] Dr. Uriah Noriega Neutrophils/100 WBC (Bld) 56.4 % Normal 43.0-75.0 [facility] Comment on above: Performed By: #### C BC #### [facility] [address] [place] [address] Dr. Uriah Noriega Platelet mean volume (Bld) [Entitic vol] 10.4 fL Normal 9.5-13.5 [facility] Comment on above: Performed By: #### C BC #### [facility] [address] [address] [address] Uriah Noriega PLT 314 103/ul Normal 150-450 [facility] Comment on above: Performed By: #### C BC #### [facility] [address] [address] [address] Uriah Noriega RBC 4.82 106/ul Normal 4.20-5.40 [facility] Comment on above: Performed By: #### C BC #### [facility] [address] [address] [address] Uriah Noriega WBC 6.6 103/ul Normal 4.0-11.0 [facility] Comment on above: Performed By: #### C BC #### [facility] [address] [place] [address] Dr. Uriah Noriega CRPon 07-10-2022 CRP 8.1 mg/dL Critically high <=1.0 [facility] Comment on above: Performed By: #### C RP, CMP ####[facility] [address] [place] [id number]. Uriah Noriega CULTURE URINEon 07-10-2022 CULTURE URINE Culture Observations : MODERATE GROWTH OF MIXED GENITAL ELOISA. NO POTENTIAL PATHOGENS SEEN. Normal [facility] Comment on above: Performed By: #### U RCX ####[facility] [address] [place] [id number]. Uriah Noriega PREG HCG QUALon 07-10-2022 , QUAL Negative Normal NEGATIVE [facility] Comment on above: Performed By: #### P REG #### [facility] [address] [address] [address] Uriah Noriega PROF 14(COMP METB)on 022 Albumin [Mass/Vol] 3.5 g/dL Normal 3.4-5.0 [facility] Comment on above: Performed By: #### C RP, CMP #### [facility] [address] [address] [address] Uriah Noriega Albumin/Globulin [Mass ratio] 0.9 {ratio} Normal [facility] Comment on above: Performed By: #### C RP, CMP #### [facility] [address] [address] [address] Uriah Noriega ALP [Catalytic activity/Vol] 67 U/L Normal 46-116 [facility] Comment on above: Performed By: #### C RP, CMP #### [facility] [address] [address] [address] Uriah Noriega ALT [Catalytic activity/Vol] 19 U/L Normal 14-59 [facility] Comment on above: Performed By: #### C RP, CMP #### [facility] [address] [address] [address] Uriah Noriega Anion gap [Moles/Vol] 11.9 mmol/L Normal [facility] Comment on above: Performed By: #### C RP, CMP #### [facility] [address] [address] [address] Uriah Noriega AST [Catalytic activity/Vol] 21 U/L Normal 15-37 [facility] Comment on above: Performed By: #### C RP, CMP #### [facility] [address] [address] [address] Uriah Noriega Bilirubin [Mass/Vol] 0.3 mg/dL Normal 0.2-1.0 [facility] Comment on above: Performed By: #### C RP, CMP #### [facility] [address] [address] [address] Uriah Noriega Calcium [Mass/Vol] 8.9 mg/dL Normal 8.5-10.1 [facility] Comment on above: Performed By: #### C RP, CMP #### [facility] [address] [address] [address] Uriah Noriega Chloride [Moles/Vol] 104 mmol/L Normal 98-107 [facility] Comment on above: Performed By: #### C RP, CMP #### [facility] [address] [address] [address] Uriah Noriega CO2 [Moles/Vol] 27.4 mmol/L Normal 21.0-32.0 [facility] Comment on above: Performed By: #### C RP, CMP #### [facility] [address] [address] [address] Uriah Noriega Creatinine [Mass/Vol] 0.75 mg/dL Normal 0.55-1.02 [facility] Comment on above: Performed By: #### C RP, CMP #### [facility] [address] [address] [address] Uriah Noriega EGFR-AF CONGOLESE >60 Normal >=[address] [facility] Comment on above: Performed By: #### C RP, CMP #### [facility] [address] [address] [address] Uriah Noriega EGFR-NON AF CONGOLESE >60 Normal >=60 [facility] Comment on above: Performed By: #### C RP, CMP #### [facility] [address] [place] [address] Dr. Uriah Noriega Globulin (S) [Mass/Vol] 4.0 g/dL Normal [facility] Comment on above: Performed By: #### C RP, CMP #### [facility] [address] [address] [address] Uriah Noriega Glucose [Mass/Vol] 92 mg/dL Normal 74-106 [facility] Comment on above: Performed By: #### C RP, CMP #### [facility] [address] [place] [address] Dr. Uriah Noriega Potassium [Moles/Vol] 4.3 mmol/L Normal 3.5-5.1 [facility] Comment on above: Performed By: #### C RP, CMP #### [facility] [address] [address] [address] Uriah Noriega Protein [Mass/Vol] 7.5 g/dL Normal 6.4-8.2 [facility] Comment on above: Performed By: #### C RP, CMP #### [facility] [address] [place] [address] Dr. Uriah Noriega Sodium [Moles/Vol] 139 mmol/L Normal 136-145 [facility] Comment on above: Performed By: #### C RP, CMP #### [facility] [address] [address] [address] Uriah Noriega Urea nitrogen [Mass/Vol] 13.0 mg/dL Normal 7.0-18.0 [facility] Comment on above: Performed By: #### C RP, CMP #### [facility] [address] [place] [address] Dr. Uriah Noriega Urea nitrogen/Creatinine [Mass ratio] 17.3 mg/mg Normal [facility] Comment on above: Performed By: #### C RP, CMP #### [facility] [address] [place] [address] Dr. Uriah Noriega SED RATE [facility] 2021 SED RATE 77 mm/hr Critically high <=30 [facility] Comment on above: Performed By: #### S EDR #### [facility] [address] [place] [address] Dr. Uriah Noriega UA (CLEAN/CATCH) SOUS CHEF KITCHEN MANAGER/MICRO I F IND.on 07-10-2022 Bilirubin Ql (U) SMALL Abnormal NEGATIVE [facility] Comment on above: Performed By: #### U ACSIND, UMICRO #### [facility] [address] [place] [address] Dr. Uriah Noriega Clarity (U) CLOUDY Abnormal CLEAR [facility] Comment on above: Performed By: #### U ACSIND, UMICRO #### [facility] [address] [place] [address] Dr. Uriah Noriega Color (U) YELLOW Normal YELLOW [facility] Comment on above: Performed By: #### U ACSIND, UMICRO #### [facility] [address] [place] [address] Dr. Uriah Noriega Glucose Ql (U) Negative Normal NEGATIVE [facility] Comment on above: Performed By: #### U ACSIND, UMICRO #### [facility] [address] [place] [address] Dr. Uriah Noriega Hemoglobin Ql (U) TRACE-INTACT Abnormal NEGATIVE [facility] Comment on above: Performed By: #### U ACSIND, UMICRO #### [facility] [address] [address] [address] Uriah Noriega Ketones Ql (U) 15 mg/dl Abnormal NEGATIVE [facility] Comment on above: Performed By: #### U ACSDANY UMICRO #### [facility] [address] [address] [address] Uriah Noriega LEUKOCYTES TRACE Abnormal NEGATIVE [facility] Comment on above: Performed By: #### U ACSDANY UMICRO #### [facility] [address] [place] [address] Dr. Uriah Noriega Nitrite Ql (U) Negative Normal NEGATIVE [facility] Comment on above: Performed By: #### U ACSDANY UMICRO #### [facility] [address] [place] [address] Dr. Uriah Noriega pH (U) 6.0 [pH] Normal 5-9 [facility] Comment on above: Performed By: #### U ACSDANY UMICRO #### [facility] [address] [place] [address] Dr. Uriah Noriega SPEC GRAVITY >=1.030 Abnormal 1.005-<=1.025 [facility] Comment on above: Performed By: #### U ACSDANY UMICRO #### [facility] [address] [place] [address] Dr. Uriah Noriega UA PROTEIN Negative Normal NEGATIVE/ TRACE [facility] Comment on above: Performed By: #### U ACSDANY UMICRO #### [facility] [address] [place] [address] Dr. Uriah Noriega UR MICRO IND INDICATED Normal [facility] Comment on above: Performed By: #### U ACSDANY UMICRO #### [facility] [address] [place] [address] Dr. Uriah Noriega Urobilinogen Qn (U) 0.2 {Anabelle'U}/dL Normal 0.2 - 1. 0 [facility] Comment on above: Performed By: #### U ACSDANY UMICRO #### [facility] [address] [place] [address] Dr. Uriah Noriega URINE MICROSCOPIC ONLYon BACTERIA LARGE Abnormal NONE SEEN [facility] Comment on above: Performed By: #### U ACSIND, UMICRO #### [facility] [address] [place] [address] Dr. Uriah Noriega Bacteria identified Cx Nom (U) INDICATED Normal [facility] Comment on above: Performed By: #### U ACSIND, UMICRO #### [facility] [address] [place] [address] Dr. Uriah Noriega CAST NONE SEEN Normal NONE SEEN [facility] Comment on above: Performed By: #### U ACSIND, UMICRO #### [facility] [address] [place] [address] Dr. Uriah Noriega Crystals LM Nom (Urine sed) NONE SEEN Normal NONE SEEN [facility] Comment on above: Performed By: #### U ACSIND, UMICRO #### [facility] [address] [place] [address] Dr. Uriah Noriega Epithelial cells LM Ql (Urine sed) NONE SEEN Normal NONE SEEN /RARE [facility] Comment on above: Performed By: #### U ACSDANY, UMICRO #### [facility] [address] [place] [address] Dr. Uriah Noriega MUCOUS TRACE Abnormal NONE SEEN [facility] Comment on above: Performed By: #### U ACSIND, UMICRO #### [facility] [address] [place] [address] Dr. Uriah Noriega RBC NONE SEEN Abnormal 0-2 [facility] Comment on above: Performed By: #### U ACSIND, UMICRO #### [facility] [address] [place] [address] Dr. Uriah Noriega WBC 0-2 Abnormal NONE SEEN [facility] Comment on above: Performed By: #### U ACSIND, UMICRO #### [facility] [address] [place] [address] Dr. Uriah Noriega Pathology Noteon 11-07-2021 Pathology Note [id number] 0CD:127 Normal [facility] Outside Colonoscopyon 2020 Outside Colonoscopy [id number] CD:127 Normal [facility] Lab Reportson 10-31-2021 Lab Reports [id number] 0CD:127 Normal [facility] [place] [facility] [place] [facility] [place] 18, 2021 CADE DEUTSCH, [address] [place] [address] Re: EREN ARCHIBALD Date of : 1965 Thank you for your referral of Eren Archibald who was seen on consultation on 10/12/2021, for colonoscopy. I have enclosed my consultation note for your review. I will be happy to follow Eren. Sincerely, Radha Frankel MD General Surgery [facility] Consent for Procedure/Surger yon 10-17-2021 Consent for Procedure/Surgery [id number] 0CD:127 [facility] Ambulatory Clinical Summaryo 10-12-2021 Ambulatory Clinical Summary {[id number]}CD:[id number] [facility] Provider Letteron 09-23-2021 Provider Letter September 23, 2021 September 23, 2021 EREN ARCHIBALD [address] [place] [address] CRISTELAEREN Ree 1965 Dear Eren_ , We have been trying to reach you with no success. It is important that you return our call regarding your referral from Dr. Deutsch to General Surgery/Digestive Health upon receiving this letter. Also, at the time of your call, please provide us with your current information. Thank you for your prompt attention to this matter. Sincerely, General Surgery/Digestive Health [phone] [facility] Physician Referralon 021 Physician Referral [id number] 0CD:127 Normal [facility] Vital Signs Date Time Vital Sign Value Performing Clinician Facility 01-06-2025 14:30-0500 Body mass index (BMI) [Ratio] 28.61 kg/m2 Cade Singletonreva [employer] SPECIALIST Work Phone: [facility] 01-06-2025 14:30-0500 Body temperature 98.8 [degF] Cade La Nena [employer]AR ENERGY SPECIALIST Work Phone: [facility] 01-06-2025 14:30-0500 Body weight 68.67 kg Cade La Nena [employer]AR ENERGY SPECIALIST Work Phone: [facility] 01-06-2025 14:30-0500 Diastolic blood pressure 88 mm[Hg] Cade La Nena [employer] ENERGY SPECIALIST Work Phone: [facility] 01-06-2025 14:30-0500 Heart rate 96 /min Cade La Nena [employer]AR ENERGY SPECIALIST Work Phone: [facility] 01-06-2025 14:30-0500 Respiratory rate 19 /min Cade Arelihaijovanny [employer]AR ENERGY SPECIALIST Work Phone: [facility] 01-06-2025 14:30-0500 SaO2% (BldA) [Mass fraction] 96 % Cade Singletonreva SOLAR ENERGY SPECIALIST Work Phone: [facility] 01-06-2025 14:30-0500 Systolic blood pressure 120 mm[Hg] Cade La Nena SOLAR ENERGY SPECIALIST Work Phone: [facility] 05-04-2024 10:44-0400 Body height 154.94 cm [facility] 05-04-2024 10:44-0400 Body mass index (BMI) [Ratio] 28.3 kg/m2 [facility] 05-04-2024 10:44-0400 Body temperature 98 [degF] [facility] 05-04-2024 10:44-0400 Body weight 68.03 kg [facility] 05-04-2024 10:44-0400 Diastolic blood pressure 79 mm[Hg] [facility] 05-04-2024 10:44-0400 Heart rate 91 /min [facility] 05-04-2024 10:44-0400 Respiratory rate 18 /min [facility] 05-04-2024 10:44-0400 SaO2% (BldA) [Mass fraction] 98 % [facility] 05-04-2024 10:44-0400 Systolic blood pressure 140 mm[Hg] [facility] Encounters Encounter Date Encounter Type Care Provider Facility Start: 01-06-2025 End: 01-06-2025 Office outpatient visit 15 minutes Cade Deutsch [employer] ENERGY SPECIALIST Work Phone: [facility] Comment on above: Chronic pain of left knee (Primary Dx); Overweight with body mass index (BMI) 25.0-29.9 Start: 01-06-2025 End: 01-06-2025 ambulatory CADE DEUTSCH Not Available Start: 01-06-2025 End: 01-06-2025 Bamboo flowsheet Cade Deutsch [employer]AR ENERGY SPECIALIST Work Phone: [facility] Start: 01-06-2025 End: 01-06-2025 Bamboo flowsheet Cade LaN ena SOLAR ENERGY SPECIALIST Work Phone: [facility] Start: 05-14-2024 End: 05-14-2024 ambulatory CADE DEUTSCH Not Available Start: 05-04-2024 End: 05-04-2024 ambulatory [facility] Work Phone: Start: 05-04-2024 End: 05-04-2024 Patient encounter procedure [facility] Work Phone: Start: 01-03-2023 End: 01-03-[address] SAMMI LEES . Facility:[facility] Start: 11-13-2022 End: 11-14-2022 ambulatory ZENA DEUTSCH Facility:[facility] Start: 08-26-2022 End: 08-27-2022 ambulatory ASSISTANT [employer] MANAGER CADE LA NENA Facility:[facility] Start: 08-15-2022 End: 08-16-2022 ambulatory ZENA DEUTSCH Facility:[facility] Start: 08-07-2022 End: 08-08-2022 ambulatory ASSISTANT [employer] C[employer] MANAGER CADE DEUTSCH Facility:[facility] Start: 07-12-2022 End: 07-13-2022 ambulatory ASSISTANT [employer] C[employer] MANAGER CADE DEUTSCH Facility:[facility] Start: 07-11-2022 End: 07-11-2022 ambulatory ASSISTANT [employer] C[employer] MANAGER CADE DEUTSCH Facility:[facility] Start: 07-10-2022 End: 07-11-2022 ambulatory ASSISTANT [employer] C[employer] MANAGER CADE DEUTSCH Facility:[facility] Procedures Date Procedure Procedure Detail Performing Clinician Start: 11-17-2024 Mammography Cade greene [employer] ENERGY SPECIALIST Work Phone: Start: 12-11-2016 Colonoscopy Cade Roula greene [employer] ENERGY SPECIALIST Work Phone: Plan of Treatment Date Care Activity Detail Author Start: 01-05-2027 Screening for malign ant neoplasm of cervix [facility] Start: 12-11-2026 Screening for malign ant neoplasm of colon [facility] Start: 11-17-2025 Screening for malign ant neoplasm of breast Mammogram [facility] Start: 01-06-2025 End: 01-06-2025 Patient encounter procedure 01/06/2025 2:20 PM EST Office Visit [facility] [address] [place] [address] Cade Deutsch NP [address] [place] [id number] Overweight with body mass index (BMI) 25.0-29.9 (Primary Dx) [facility] Comment on above: Overweight with body mass index (BMI) 25.0-29.9 (Primary Dx) Start: 01-06-2025 End: 01-06-2026 XR Knee - left 1 or 2 Views XR knee 1 or 2 views left Imaging Routine Chronic pain of left knee Expected: 01/06/2025 (Approximate), Expires: 01/06/2026 [facility] Work Phone: Comment on above: Expected: 01/06/2025 (Approximate), Expires: 01/06/2026 Start: 1987 Screening for malign ant neoplasm of cervix Pap Smear [facility] Start: 1965 Screening for malign ant neoplasm of colon [facility] Immunizations Immunization Date Immunization Notes Care Provider William nolan 07-18-2024 influenza, seasonal, injectable, preservative free Cade Aichholz [employer] ENERGY SPECIALIST Work Phone: [facility] 08-03-2023 influenza, injectabl e, quadrivalent, preservative free Cade Aichholz SOLAR ENERGY SPECIALIST Work Phone: [facility] 08-01-2022 zoster vaccine recombinant Cade Aichholz [employer]AR ENERGY SPECIALIST Work Phone: [facility] 08-05-2021 influenza, injectabl e, quadrivalent, preservative free Cade Aichholz SOLAR ENERGY SPECIALIST Work Phone: [facility] 08-09-2020 influenza, injectabl e, quadrivalent, preservative free Cade Aichholz SOLAR ENERGY SPECIALIST Work Phone: [facility] 08-05-2019 Influenza, injectabl e, Madin Cantwell Canine Kidney, preservative free, quadrivalent Cade Aichholz SOLAR ENERGY SPECIALIST Work Phone: [facility] 04-01-2018 tetanus toxoid, redu andrae diphtheria toxoid, and acellular pertussis vaccine, adsorbed Cade Aichholz SOLAR ENERGY SPECIALIST Work Phone: [facility] 07-20-2015 influenza, seasonal, injectable, preservative free Cade Aichholz SOLAR ENERGY SPECIALIST Work Phone: [facility] Payers Date Payer Category Payer Private Health Insurance [facility] [id number] 1965 Unknown [id number] [id number] 1965 Unknown [id number]. [id number] 1966 Unknown [id number]. [id number] 1966 Unknown [id number]. 2.593 1965 Unknown [id number]. 2.593 1966 Unknown [id number] [id number]. 2.593 1965 Unknown [id number] [id number]. 2.593 1966 Unknown [id number] [id number]. 2.593 1965 Unknown [id number] [id number]. 2.1259 1965 Unknown [id number]. 2.1259 1959 Unknown [id number] 1958 Unknown [id number] Social History Date Type Detail Facility Tobacco smoking stat us [facility] Unknown if ever smoked [facility] Work Phone: Start: 1965 Sex Assigned At Female [facility] Start: 05-04-2024 End: 05-14-2024 Tobacco smoking status MDIS Never smoked tobacco (finding) [facility] Start: 05-14-2024 Tobacco use and exposure Smoke less tobacco non-user [facility] Start: 05-14-2024 End: 01-06-2025 Alcoholic beverage intake Lifetime non-drinker (finding) [facility] Start: 05-14-2024 End: 01-03-2025 History of Social function [facility] Start: 05-14-2024 End: 01-03-2025 [id number] Health Literacy [facility] How often do you nee d to have someone help you when you read instructions, pamphlets, or other written material from your doctor or pharmacy [SILS] Sometimes [facility] Do you belong to any clubs or organizations such as advent groups, unions, fraternal or athletic groups, or school groups? No [facility] Are you now , , , , never or living with a partner? [facility] How often to you hav e a drink containing alcohol? Monthly or less [facility] How many standard dr inks containing alcohol do you have on a typical day? 1 or 2 [facility] How often do you hav e 6 or more drinks on 1 occasion? Never [facility] How hard is it for y ou to pay for the very basics like food, housing, medical care, and heating Not very hard [facility] Do you feel stress - tense, restless, nervous, or anxious, or unable to sleep at night because your mind is troubled all the time - these days [OSQ] Not at all [facility] (I/We) worried whejus er (my/our) food would run out before (I/we) got money to buy more. Never true [facility] Start: 1965 Sex assigned at Not on file [facility] History of Present illness Narrative 01-06-2025 Cade Deutsch NP - 01/06/2025 3:07 PM FABIANA PARRY - 01/06/2025 2:20 PM Any Deutsch NP - 01/06/2025 2:20 PM EST Note Date & Type Note Facility 01-06-2025 History of Presen t illness Narrative Associated Problem(s): Chronic pain of left knee Cannot say this would be work related d/t no definite mechanism of injury. Will check xray Add meloxicam Order PT Fu in 6 weeks If not better consider MRI and or Ortho Pt states that her left knee has been swelling on and off since July, it is sometimes painful. Pt uses brace at times and uses IBU for medication. Work hard and pressure knee pain onand off since jul.. I tried to fight knee better What it from a work related injury? 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 I wear a brace since 2 days.. I think it is better and IB too Images from the original note were not included. Eren Archibald is a 59 y.o. female presents with chief complaint of Joint Swelling (knee) HPI: Knee Pain Incident onset: 08/12. Incident location: unsure. There was no injury mechanism. The pain is present in the left knee. The quality of the pain is described as aching. The pain is moderate. The pain has been Intermittent since onset. Associated symptoms include an inability to bear weight and a loss of motion. Pertinent negatives include no loss of sensation, muscle weakness, numbness or tingling. She reports no foreign bodies present. The symptoms are aggravated by movement, weight bearing and palpation. She has tried NSAIDs for the symptoms. The treatment provided mild relief. SUBJECTIVE: MEDICATIONS: Current Outpatient Medications Medication Instructions Meloxicam 15 mg, Oral, Daily ALLERGIES: Allergies Allergen Reactions Bacitracin Unknown REVIEW OF SYMPTOMS: Review of Systems Constitutional: Negative for appetite change, chills and fever. HENT: Negative for congestion, ear pain and sore throat. Eyes: Negative for pain, discharge, redness and visual disturbance. Respiratory: Negative for cough, shortness of breath and wheezing. Cardiovascular: Negative for chest pain, palpitations and leg swelling. Gastrointestinal: Negative for abdominal pain, blood in stool, constipation, diarrhea, nausea and vomiting. Genitourinary: Negative for difficulty urinating, dysuria and frequency. Musculoskeletal: Positive for arthralgias. Negative for back pain, joint swelling and myalgias. Skin: Negative for rash and wound. Neurological: Negative for dizziness, tingling, tremors, seizures, syncope, numbness and headaches. Psychiatric/Behavioral: Negative for behavioral problems, self-injury and suicidal ideas. The patient is not nervous/anxious. Hematological: Does not bruise/bleed easily. Endocrine: Negative for polydipsia, polyphagia and polyuria. Allergic/Immunologic: Negative for environmental allergies and food allergies. PAST MEDICAL HISTORY History reviewed. No pertinent past medical history. History reviewed. No pertinent surgical history. family history is not on file. OBJECTIVE: Visit Vitals BP 120/88 (BP Location: Left arm, Patient Position: Sitting, BP Cuff Size: Adult long) Pulse 96 Temp 98.8 F (Temporal) Resp 19 Wt 151 lb 6.4 oz SpO2 96% BMI 28.61 kg/m Smoking Status Never BSA 1.72 m Physical Exam Vitals and nursing note reviewed. Constitutional: General: She is not in acute distress. Appearance: Normal appearance. HENT: Head: Normocephalic and atraumatic. Right Ear: External ear normal. Left Ear: External ear normal. Nose: Nose normal. Mouth/Throat: Mouth: Mucous membranes are moist. Eyes: Extraocular Movements: Extraocular movements intact. Conjunctiva/sclera: Conjunctivae normal. Cardiovascular: Rate and Rhythm: Normal rate and regular rhythm. Pulses: Normal pulses. Heart sounds: Normal heart sounds. Pulmonary: Effort: Pulmonary effort is normal. Breath sounds: Normal breath sounds. Abdominal: General: Bowel sounds are normal. There is no distension. Palpations: Abdomen is soft. There is no mass. Tenderness: There is no abdominal tenderness. Musculoskeletal: Cervical back: Normal range of motion and neck supple. Right lower leg: No edema. Left lower leg: No edema. Comments: Tenderness to left anterior and medial knee No pain with valgas/varus, no laxity noted Crepitus is noted bilat w flex/ext Mild swelling about the knee anterior/posterior Calf soft, neg HAMLET test, hip no pain with internal/external rotation Skin: General: Skin is warm and dry. Capillary Refill: Capillary refill takes 2 to 3 seconds. Findings: No rash. Neurological: General: No focal deficit present. Mental Status: She is alert and oriented to person, place, and time. Psychiatric: Mood and Affect: Mood normal. Behavior: Behavior normal. Thought Content: Thought content normal. Judgment: Judgment normal. ASSESSMENT AND PLAN: Follow up in about 6 weeks (around 02/17/2025) for Recheck. Problem List Items Addressed This Visit Overweight with body mass index (BMI) 25.0-29.9 Chronic pain of left knee - Primary Cannot say this would be work related d/t no definite mechanism of injury. Will check xray Add meloxicam Order PT Fu in 6 weeks If not better consider MRI and or Ortho Relevant Medications Meloxicam 15 MG tablet dispersible Other Relevant Orders XR knee 1 or 2 views left Ambulatory referral to Physical Therapy documented in this encounter [facility] Instructions 01-06-2025 Patient Instructions Note Date & Type Note Facility 01-06-2025 Instructions Cade Deutsch NP - 01/06/2025 2:20 PM EST Knee pain: we will check xray Order Physical Therapy, [facility] will call you Medication: Meloxicam 15mg once a day. While taking this do NOT take ibuprofen, advil, aleve, you may take Tylenol in addition to this I will see you back in 6 weeks if not better after that we may consider MRI knee or a referral to an Ortho specialist documented in this encounter [facility] Clinical Note 10-12-2021 Note Date & Type Note Facility 10-12-2021 Note Chief Complaint consultation for colonoscopy [facility] Staff 56 year old female presents on consultation from Cade Deutsch NP for colonoscopy. Last colonoscopy completed [...] Mother. Primary malignant neoplasm of lung: Father. [facility] Comment on above: Result Comment: Elec tronically Signed By: APRIL NUNES, Radha Rojas\.ramsey\Date and Time Signed: 10/12/21 14:44 EST Evaluation note Note Date & Type Note Facility Evaluation note No assessment information availa ble [facility] Work Phone: Evaluation note Note Date & Type Note Facility Evaluation note Diagnosis Onset Date Contact with and (suspected) exposure to covid-19 noneactive [facility] Work Phone: Evaluation note Note Date & Type Note Facility Evaluation note Diagnosis Diverticular disease- Primary Diverticulosis of colon (without mention of hemorrhage) Overweight with body mass index (BMI) 25.0-29.9 Bilateral hearing loss, unspecified hearing loss type Chronic pain of left knee- Primary Overweight with body mass index (BMI) 25.0-29.9 documented in this encounter [facility] Summary Purpose Family History No Family History Records FoundNo Family History Records FoundNo Family History Records [...] section and content) DATE CREATED AUTHOR 11/08/2021 De Jesus Gaines [facility] DATE CREATED AUTHOR AUTHOR'S ORGANIZ ATION 01/13/2023 [facility] DATE CREATED AUTHOR AUTHOR'S ORGANIZ ATION 01/08/2025 [facility] dical Specialists EPIC Care Teams (unrecognized sec tion and content) [...] Care Provider Active Start: May 04, 2024 Iron Pourer Relationship Specialty Start Date End Date Dung Valdez MD [address] [place] [address] PCP - General Family Medicine 05/13/24 Cade Deutsch NP [address] [place] [address] Nurse Practitioner Family Medicine 05/13/24 Iron Pourer Relationship Specialty Start Date End Date Dung Valdez MD [address] [place] [address] PCP - General Family Medicine 05/13/24 Cade Deustch NP [address] [place] [address] Nurse Practitioner Family Medicine 05/13/24 Goals (unrecognized section and content) Goals may be documented in a n alternate sectionGoals may be documented in an alternate section Reason for Visit (unrecogniz ed section and content) Reason Comments Joint Swelling knee FOR RECORDS PERTAINING TO PATIENTS WHO ARE [...] BE BASED ON THE PRIMARY CLINICAL RECORDS. [employer] provides no warranty or guarantee of the accuracy or completeness of information in this document.
== END 2025-01-12 10:30 | disposition home or self-care (01) ==
LOC: RAD 10:29
PROVIDERS: PCP Nurse Practitioner; Visit Provider Nurse Practitioner
DX: M25.562 Pain in left knee (principal); G89.29 Other chronic pain
CPT/HCPCS: 73560

== ENCOUNTER 2025-01-15 10:27 | Outpatient (RCR) | payer OTHER, SELFPAY | END 2025-01-22 11:26 | disposition home or self-care (01) | LOC: PT 10:27 | PROVIDERS: PCP Nurse Practitioner; Visit Provider Nurse Practitioner | DX: M25.562 Pain in left knee (principal); G89.29 Other chronic pain; R26.89 Other abnormalities of gait and mobility | CPT/HCPCS: 97110; 97161 ==

== ENCOUNTER 2025-11-18 09:20 | Outpatient (OUT) | payer OTHER, SELFPAY ==
--- OUTSIDE RECORDS SUMMARY | 2025-11-18 09:22 | XMS_ITS | Patient Health Record ---
Author Organization [facility] in [place] Address [address] [place] [address] Care Team Providers Care Communications Planner Name Role Phone Kirsten Deutsch CNP Primary Care Provider Unavail able Allergies Allergen (clinical drug ingredient) Drug/Non Drug Allergy documented on EMR Reaction Allergy Type Onset Date Status antibiotic dermatologicals (uncoded)UnknownAllergyActive Results Component Value Reference Range Notes 1,25-DIHYDROXYVITAMIN D, S ( Not yet reviewed by provider) Interpretation: Performing Lab:[address], [place], [place]. [facility] PH:[phone] Notes/Report: 1,25-Dihydroxyvitamin D, S 35 18-78 pg/mL NOTE ADDITIONAL INFORMATION This test was developed and its performance characteristics determined by [facility] in a manner consistent with CLIA requirements. This test has not been cleared or approved by the U.S. Food and Drug Administration. Test Performed by: [facility] [place] [address] Apparatus Engineering Technologist: Virgen Rucker Ph.D.; CLIA# [id number] PERFORMED AT [address] [place] [address] The copy-to physician of this order is KIRSTEN Suero ; , ; The ordering physician of this order is BARTOLOME Tenorio Reason For Referral No Information Social History Tobacco Use: Social History Observation Description Date Details (start date - stop date) Never Smoker NA - NA Tobacco Control (Standard) Question Answer Notes Tobacco use: Nonsmoker Problems Problem Type SNOMED Code ICD Code Onset Dates Problem Status W/U Status Risk Notes Problem Acquired hallux valgus (02366036 ) Hallux valgus (acquired), left foot (M20.12) ActiveconfirmedProblemAcquired hammer toe of left foot (0649485129166808)Other hammer toe(s) (acquired), left foot (M20.42)ActiveconfirmedProblemPain in left foot (282832456087997)Left foot pain (M79.672)Activeconfirmed Plan Of Treatment Pending Test Test Name Order Date XR Foot LT (3 views) * 07/30/2024 XR foot LT min 3V 08/01/2024 1,25-DIHYDROXYVITAMIN D, S 02/18/2025 Insurance Providers Payer Name Payer Address Payer Phone Subscriber Number Group Number Insured Name Patient Relationship to Insured Coverage Start Date Coverage End Date [employer] [address] [address] [place] [address] [id number] Emilia Newton Self - patient is the insured Medical (General) History Medical History History ICD Code deaf
--- OUTSIDE RECORDS SUMMARY | 2025-11-18 09:22 | XMS_ITS | Clinical Summary ---
Author Organization [facility] Address [address] [place] [address] Care Team Providers Care Glost Tile Shader Name Role Phone Alva Monroy MD Primary Care Provider Alecia taylor Social History Tobacco UseTypesPacks/DayYears UsedDateSmoking Tobacco: Never Assessed CommentsUnknownSex and Gender InformationValueDate RecordedSex Assigned at Not on fileLegal KotZgngdf42/20/2012 12:02 PM ESTGender IdentityNot on file Sexual OrientationNot on file Plan of Treatment Health MaintenanceDue DateLast DoneCommentsMMR Vaccine (1 of 1 - Standard series)1967DTaP/Tdap/Td Vaccine (1 - Tdap)1973Varicella Vaccine (1 of 2 - 13+ 2-dose series)1979Hepatitis B Vaccine (1 of 3 - 19+ 3-dose series)09/08/19856243Adijjusoi38/21/2006Pneumococcal Vaccine: 50+ Years (1 of 1 - PCV)2016COVID-19 Vaccine ( - 2024- season)2025Influenza Vaccine (#1)2025RSV Immunization (1 - 1-dose 75+ series)2041HIB VaccineAged OutNo longer eligible based on patient's age to complete this topicHPV Vaccine Aged OutNo longer eligible based on patient's age to complete this topic Hepatitis A VaccineAged OutNo longer eligible based on patient's age to complete this topicIPV VaccineAged OutNo longer eligible based on patient's age to complete this topicMeningococcal ACWY VaccineAged OutNo longer eligible based on patient's age to complete this topicMeningococcal B VaccineAged OutNo longer eligible based on patient's age to complete this topicRSV AntibodiesAged OutNo longer eligible based on patient's age to complete this topicRotavirus Vaccine Aged OutNo longer eligible based on patient's age to complete this topic Care Teams Team MemberRelationshipSpecialtyStart DateEnd Date Alva Monroy MD PCP - GeneralDevelopmental/Behavioral Zojtxgrnfm76/19/12
--- OUTSIDE RECORDS SUMMARY | 2025-11-18 09:23 | XMS_ITS | Clinical Summary ---
Author Organization [facility] Address [id number] [address] [place] [address] Care Team Providers Care Grant Writer Name Role Phone La Nena Kirsten Amanuel ENCARNACIONN-PLATE PRINTER Primary Care Provider Allergies Active AllergyReactionsCriticalityNoted AumqVvwgqmzkVpwwppozbl44/02/2025 Medications No known medications Social History Tobacco UseTypesPacks/DayYears UsedDateSmoking Tobacco: NeverSmokeless Tobacco: Never Tobacco Cessation:Counseling Given: Not Answered Alcohol UseStandard Drinks/WeekCommentsYes0 (1 standard drink = 0.6 oz pure alcohol)rareChildcareAnswerDate RkvkrrsnKqxfafovvYnbeoua02/12/2019Employment AnswerDate OghhuogbJhaakmyyttOexggpu83/12/2019CommentsNoSex and Gender InformationValueDate RecordedSex Assigned at BirthNot on fileLegal SexFemale 06/24/2015 11:50 AM EDTGender IdentityNot on fileSexual OrientationNot on file Last Filed Vital Signs Vital SignReadingTime TakenCommentsBlood Lnkeqtus288/5504 10:13 AM EDT Coljz0492 10:13 AM RITNlnojnbkbes40.2 ??C (97.1 ??F)02/26/2025 9:30 AM EDTRespiratory Pjtg0088 10:13 AM EDTOxygen Qnvbbehvvr215%02/26/2025 10:13 AM EDTInhaled Oxygen Concentration--Ymfyry35.6 kg (149 lb)02/26/2025 6:35 AM PSUBytcur655.9 cm (5' 1 )02/26/2025 6:35 AM EDTBody Mass Index28.15002/26/2025 6:35 AM EDT Plan of Treatment Health MaintenanceDue DateLast DoneCommentsDepression Egelgtfgj31/21/1978Adult BMI Follow Up Plan1984Pap Smear1987Zoster (Shingles) Vaccine (2 of 2)/2COVID-19 Vaccine (2024- season), 11/11/2021, 03/10/2021, Additional history existsInfluenza Ezpcyvy2307/20/2025 07/18/2024, 08/03/2023, 08/05/2021, Additional history existsAdult BMI Screening Tobacco Okuthcgyj87DTaP,Tdap and Td Vaccines (2 - Td or Tdap) Medical Devices ImplantedTypeAreaManufacturerDevice IdentifierShelf Expiration DateModel / Serial / LotPlate Bn 1.3mm 0d Med Dflxn Prm Gorilla Prcs Gd Mtp Lt - Sna - [id number] Implanted:Qty: 1 on 02/26/2025 [facility] Second ToePAR[employer]11/19/[id number] / NA / NAScrew Bn 28mm 3.5mm Cnn Mn-Mnstr St - Sna - [id number] Implanted:Qty: 1 on 02/26/2025 [facility] First ToePAR[employer]11/19/[id number] / NA / NAScrew Bn 11mm 2.7mm R3con Ns Gorilla Plt Sys - Sna - [id number] Implanted:Qty: 1 on [facility]/26/20[facility] First [employer]ePAR[employer]11/19/[id number] / NA / NAScrew Bn 9mm 2.7mm R3con Ns Gorilla Plt Sys - Sna - [id number] Implanted:Qty: 1 on 02/26/2025 [facility] [employer]PAR[employer]11/19/[id number] / NA / NAScrew Bn 14mm 2.7mm Recon Ns Gorilla Plt Sys Rpl [id number] - Sna - [id number] Implanted:Qty: 1 on 02/26/2025 [facility] First [employer]11/19/[id number] / NA / NAScrew Bn 16mm 3.5mm Gorilla Ns R3con Non Lck Plt - Sna - [id number] Implanted:Qty: 3 on 02/26/2025 by [facility] [employer]PAR[employer]11/19/[id number] / NA / NAScrew Bn 13mm 2mm Bite Mnstr St Ns - Sna - [id number] Implanted:Qty: 1 on 02/26/2025 [facility] First ToePAR[employer]11/19/[id number] / NA / NAExplantedTypeAreaManufacturerDevice IdentifierShelf Expiration DateModel / Serial / LotLinvatec Conmed K-Wire Explanted:Qty: 1 on 02/26/2025 at [facility] ImplantLeft: First ToeCONMED [id number] / / Wire Fx Krsh 1.2mm 150mm 1 End Troc Tip Smth Rpl [id number] - Sna - [id number] Explanted:Qty: 1 on 02/26/20[facility]: First ToePAR[employer]11/19/2029 [id number] / NA / NAWire Fx Krsh 1.6mm 150mm 1 End Troc Tip Smth Rpl [id number] - Sna - [id number] Explanted:Qty: 1 on 02/26/2025 [facility]: First ToePAR[employer]11/19/2029 [id number] / NA / NA Insurance Care Teams Team MemberRelationshipSpecialtyStart DateEnd Date Kirsten Deutsch, KARINA-PLATE PRINTER PCP - GeneralNurse Practitioner02/18/25
--- OUTSIDE RECORDS SUMMARY | 2025-11-18 09:23 | XMS_ITS | Clinical Summary ---
Author Organization [facility] Address [address] [place] [address] Care Team Providers Care Tie Maker Name Role Phone Dung Valdez MD Primary Care Provider [phone] Kirsten Deutsch NP Unavailable [phone] Allergies Active AllergyReactionsCriticalityNoted XloqVmnphtfyCamobtksgvTxzxbnd61/26/2024 Medications No known medications Active Problems ProblemNoted DateDiagnosed DateDeaf, pacfzsivm31/14/2025Pre-operative clearance 02/18/2025 Assessment & Plan (02/18/2025 12:56 PM EDT): Pt does have an upcoming foot surgery, she does not have any known cardiac history. No known diabetes. Pt is cleared for surgery Hallux valgus (acquired), left foot02/17/2025Encounter for adult wellness visit 02/17/2025 Assessment & Plan (02/17/2025 3:46 PM EDT): Reviewed Ht/Wt/BMI Recommend eye exam yearly Recommend dental exams twice a year Balance work/leisure activities Exercises is recommended most days of the week (appropriate as chronic conditions allow) Follow up yearly and prn Chronic pain of left knee01/06/2025 Assessment & Plan (02/17/2025 3:46 PM EDT): resolved Assessment & Plan (01/06/2025 3:11 PM EST): Cannot say this would be work related d/t no definite mechanism of injury. Will check xray Add meloxicam Order PT Fu in 6 weeks If not better consider MRI and or Ortho Acquired hammer toe of left foot05/14/2024Hammer toe05/14/2024redislocation syndrome of metatarsophalangeal joint, left05/14/2024iverticular disease 05/14/2024 Assessment & Plan (05/14/2024 9:41 AM EDT): Suspect the cause of her symptoms is diverticulitis, however she does not have fever, NV She is quite tender in the LLQ that is worse with palpation, however also ROM of the hip and knee I wanted to order labs and xray and atbs, however the pt states she cannot take any form of atbs d/t nausea and vomiting. I did explain my suspected diagnosis, and given that she is very resistant totaking an atb, I will send her to ER so that she can have appropriate testing to see if in fact this is the correct diagnosis. I am concerned about the fact of the pain to LLQ with ROM left knee is there other pathology going on. She is willing to go to [facility] ER for evaluation. Her last colonoscopy 10/2019 Gastroesophageal reflux ksxrueo2405/14/2024 Assessment & Plan (02/17/2025 3:46 PM EDT): none Hearing loss05/14/2024History of colonic nzsbkm4705/14/2024 Overview (05/14/2024): Colonoscopies: 11/02/21 5mm polyp, tubular adenoma, repeat 5 years 11/13 Xstmvvjutdagpz03/26/2024 Assessment & Plan (02/17/2025 3:46 PM EDT): Check labs no statin Menopausal swwdylt5305/14/2024Overweight with body mass index (BMI) 25.0-29.9 05/14/2024Encounter for screening mammogram for malignant neoplasm of breast 10/22/2023 Encounters DateTypeDepartmentCare WcmkSvislbtqnoh42/06/2025 11:25 AM EDTAncillary Procedure [facility] [address] [place] [address] 08/24/2025 11:00 AM EDTOffice Visit [facility] [address] [place] [address] Christian Richardson DPM S/P foot surgery (Primary Dx)08/24/2025amboo flowsheet [facility] [address] [place] [address] Christian Richardson DPM 08/24/20251516Orockp74/02/2025Travelfrom Last 3 Months Immunizations ImmunizationAdministration DatesNext DueInfluenza, injectable, MDCK, preservative free, taixfipezcay11/17/2019Influenza, injectable, quadrivalent, preservative free08/03/2023,08/05/2021,08/09/2020Influenza, seasonal, injectable, preservative free07/18/2024,07/20/2015Tdap04/01/2018Zoster, Vuokxinvrqh72/13/2022 Family History Medical HistoryRelationNameCommentsCancerFatherRichdoctors medical center of modesto Charliemountrail county health centerBhumikaabedarrenMojaelyn GuerrasenHypertensionMotherJefarideh Unc Health RexRelationNameStatus CommentstherAmery Hospital And Clinicaddy Fred[facility] Regional Hospitaleliseomountrail county health centerAliveMotherJefarideh Unc Health RexAlive Social History Tobacco UseTypesPacks/DayYears UsedDateSmoking Tobacco: NeverSmokeless Tobacco: Never Tobacco Cessation:Counseling Given: Not Answered Alcohol UseStandard Drinks/WeekCommentsNever0 (1 standard drink = 0.6 oz pure alcohol)B1300 Health LiteracyAnswerDate RecordedHow often do you need to have someone help you when you read instructions, pamphlets, or other written material from your doctor or pharmacy?Chnjkydqe19/15/2025Social Connection and Isolation PanelAnswerDate RecordedIn a typical week, how many times do you talk on the phone with family, friends, or neighbors?Patient /15/2025How often do you get together with friends or relatives?Patient wnovotfj82/15/2025 How often do you attend buddhist or mandaeism services?More than 4 times per year 01/03/2025Do you belong to any clubs or organizations such as buddhist groups, unions, fraternal or athletic groups, or school groups?No01/03/2025How often do you attend meetings of the clubs or organizations you belong to?Never01/03/2025 Are you , , , , never , or living with a partner?Gcjwxqc8001/03/2025UDIT-CAnswerDate RecordedQ1: How often do you have a drink containing alcohol?Monthly or less01/03/2025Q2: How many drinks containing alcohol do you have on a typical day when you are drinking?1 or Q3: How often do you have six or more drinks on one occasion?Never01/03/2025Overall Financial Resource Strain (CARDIA)AnswerDate RecordedHow hard is it for you to pay for the very basics like food, housing, medical care, and heating?Not very hard01/03/2025PHQ-2AnswerDate RecordedPatient Health Questionnaire-2 Score0 05/14/2024Fincentral valley medical center [place] of Occupational Health - Occupational Stress QuestionnaireAnswerDate RecordedDo you feel stress - tense, restless, nervous, or anxious, or unable to sleep at night because yourmind is troubled all the time - these days?Not at all01/03/2025Exercise Vital SignAnswerDate RecordedOn average, how many days per week do you engage in moderate to strenuous exercise (like a brisk walk)?3 days01/03/2025On average, how many minutes do you engage in exercise at this level?20 min01/03/2025Hunger Vital SignAnswerDate Recorded Within the past 12 months, you worried that your food would run out before you got the money to buymore.Never true01/03/2025Within the past 12 months, the food you bought just didn't last and you didn't have money to get more.Never true 01/03/2025PRAPARE - TransportationAnswerDate RecordedIn the past 12 months, has lack of transportation kept you from medical appointments or from getting medications?No01/03/2025In the past 12 months, has lack of transportation kept you from meetings, work, or from getting things needed for daily living?No 01/03/2025Housing Stability Vital SignAnswerDate RecordedIn the last 12 months, was there a time when you were not able to pay the mortgage or rent on time? Patient /15/2025In the past 12 months, how many times have you moved where you were living?t any time in the past 12 months, were you homeless or living in a prison (including now)?No01/03/2025Comments UnknownSex and Gender InformationValueDate RecordedSex Assigned at BirthNot on fileLegal DkoQkduqh03/15/2023 6:53 PM EDTGender IdentityNot on fileSexual OrientationNot on file Last Filed Vital Signs Vital SignReadingTime TakenCommentsBlood Hlffotfo870/8004 2:09 PM EDT Tgkur7194 2:09 PM IXPZvmutcefudf44.1 ??C (98.7 ??F)02/17/2025 2:09 PM EDTRespiratory Dhwb864002/17/2025 2:09 PM EDTOxygen Ykjhtryeqp08%02/17/2025 2:09 PM EDTInhaled Oxygen Concentration--Gqiznw86.4 kg (153 lb)08/24/2025 10:54 AM ZLAMlzctx762.9 cm (5' 1 )08/24/2025 10:54 AM EDTBody Mass Index28.9108/24/2025 10:54 AM EDT Plan of Treatment Health MaintenanceDue DateLast DoneCommentsCT Jaxpoqwlrjur1966FIT-DNA 1966FIT1966FOBT09/08/19663906Qvpgvykaamgzu1966Pap Smear1987 Nrvaupsnr44, 11/15/2023, 10/31/20227570Uralbqucrfd40/23/2027 12/11/2016Colorectal Cancer Zuusnbhpr84/23/2027Cervical Cancer Screening 01/05/2027HPV/Okivmt13Influenza UjwsqurRsveiwnml05/29/2025, 07/18/2024, 08/03/2023, Additional history existsPneumococcal Vaccine: Pediatrics (0 to 5 Years) and At-Risk Patients (6 to 64 Years)Aged OutNo longer eligible based on patient's age to complete this topic Procedures Procedure NamePriorityDate/TimeAssociated DiagnosisCommentsXR FOOT 3+ VIEWS LEFT Kcurpsj6808/24/2025 11:20 AM EDT S/P foot surgery MM TOMOSYNTHESIS SCREENING BI11/17/2024 4:58 PM EST from Last 3 Months or Most Recently Relevant to Health Maintenance Results * XR foot 3+ views left (08/24/2025 11:20 AM EDT)Anatomical RegionLaterality ModalityLower Extremities, FootLeftRadiographic ImagingSpecimen (Source) Anatomical Location / LateralityCollection Method / VolumeCollection Time Received Time Narrative 08/24/2025 11:24 AM EDT Imaging Result: AP, medial oblique, lateral views are weight-bearing. ??Apparent fusion of the 1st MTP. ??Implants intact without lucency or back out. ??Hardware in the 2nd metatarsal and 2nd toe are also intact without lucency or back out. ??Metatarsus adductus present. ?? Authorizing ProviderResult TypeResult StatusChristian Sushil Fermin DPMIMG XR PROCEDURESFinal Result * MM TOMOSYNTHESIS SCREENING BI (11/17/2024 4:58 PM EST)Anatomical Region LateralityModalityOtherSpecimen (Source)Anatomical Location / Laterality Collection Method / VolumeCollection TimeReceived Time11/17/2024 4:58 PM EST Narrative 11/17/2024 4:59 PM EST [facility] ?[address] ? [place] [address] ? Mammography Report ? Signed ? Patient: EREN ARCHIBALD ? MR#: [id number] ?? : 1965 ?Acct:[id number] ?? Age/Sex: 59 / F ?ADM Date: 12/30/24 ?? Loc: MAMMO ? Attending Dr: Kirsten Singletonhjovanny CLOTH FOLDER HAND ? Ordering Physician: La Nena,Kirsten CLOTH FOLDER HAND ?Results: ? Date of Service: 11/17/24 ?Follow Up: ? Procedure(s): MM tomosynthesis screening BI ?? Accession Number(s): [id number] ? cc: Kirsten Deutsch CLOTH FOLDER HAND ? Patient Name: ? EREN ARCHIBALD ? MR#: [id number] ? : 1965 ? Exam Date: 11/17/2024 ?? Ordering Doctor: ZENA Deutsch CNP ? RADIOLOGY REPORT ? PROCEDURE: ? MM TOMOSYNTHESIS SCREENING BI ? COMPARISON: ? MM TOMOSYNTHESIS SCREENING BI, 11/14/2023. ??MG MAMM SCREEN 3D ?? [place] CAD, 11/13/2022. ??MG MAMM SCREEN 3D [place] CAD, 11/10/2021. ??MG MAMM [place] SCRN ?? W CAD DIG, 12/31/2013. ? INDICATIONS: ? Screening ? Calculator Name ? NCI Breast Cancer Risk Assessment Tool ?? 5 Year Breast Cancer Risk ? 1.60% ?? Lifetime Breast Cancer Risk ? 9.30% ?? Personal Breast Cancer ?No ?? Personal Ovarian Cancer ? No ?? Treatments ? None ?? Family Cancers ? Father with lung cancer at age 71. ? LOCATION: ? [facility] ? BREAST COMPOSITION: ? The breasts are heterogeneously dense,which may ?? obscure small masses. ? FINDINGS: ? DIAGNOSTIC CATEGORY 1--NEGATIVE. ? RIGHT BREAST: ??No significant suspicious finding. ??No significant change has ?? occurred. ? LEFT BREAST: ??No significant suspicious finding. ??No significant change has ?? occurred. ? RECOMMENDATIONS: ? ROUTINE MAMMOGRAM AND CLINICAL EVALUATION IN 12 MONTHS. ? PLEASE NOTE: ??A NORMAL MAMMOGRAM DOES NOT EXCLUDE THE POSSIBILITY OF BREAST ?? CANCER. ??A CLINICALLY SUSPICIOUS PALPABLE LUMP SHOULD BE BIOPSIED. ? Dictated by: Clem Espinal M.D. on 11/17/2024 at 16:54 ? Approved by: Clem Espinal M.D. on 11/17/2024 at 16:57 ? Dictated By: ?Clem Espinal M.D. ? Signed By: ?11/17/24 1659 ? DD/ 1658 ? TD/TT: ? Fuels Engineer: Procedure Note Radiology, Radiologist, MD - 11/17/2024 [place] [address] Mammography Report Signed Patient: EREN ARCHIBALD LMR#: [id number] : 1965Acct:[id number] Age/Sex: 59 / FADM Date: 11/17/24 Loc: MAMMO Attending Dr: Kirsten Deutsch NP Ordering Physician: Kirsten Deutsch NPResults: Date of Service: 11/17/24Follow Up: Procedure(s): MM tomosynthesis screening BI Accession Number(s): [id number] cc: Kirsten Deutsch NP Patient Name: EREN ARCHIBALD MR#: [id number] : 1965 Exam Date: 11/17/2024 Ordering Doctor: ZENA Deutsch DIGITAL TECHNICIAN RADIOLOGY REPORT PROCEDURE: MM TOMOSYNTHESIS SCREENING BI COMPARISON: MM TOMOSYNTHESIS SCREENING BI, 11/14/2023. MG MAMM AWUCXW8T [place] CAD, 11/13/2022. MG MAMM SCREEN 3D [place] CAD, 11/10/2021. MG MAMM BILSCRN W CAD DIG, 12/31/2013. INDICATIONS: Screening Calculator Name NCI Breast Cancer Risk Assessment Tool 5 Year Breast Cancer Risk 1.60% Lifetime Breast Cancer Risk 9.30% Personal Breast Cancer No Personal Ovarian Cancer No Treatments None Family Cancers Father with lung cancer at age 71. LOCATION: [facility] BREAST COMPOSITION: The breasts are heterogeneously dense,which may obscure small masses. FINDINGS: DIAGNOSTIC CATEGORY 1--NEGATIVE. RIGHT BREAST: No significant suspicious finding. No significant changehas occurred. LEFT BREAST: No significant suspicious finding. No significant changehas occurred. RECOMMENDATIONS: ROUTINE MAMMOGRAM AND CLINICAL EVALUATION IN 12 MONTHS. PLEASE NOTE: A NORMAL MAMMOGRAM DOES NOT EXCLUDE THE POSSIBILITY OFBREAST CANCER. A CLINICALLY SUSPICIOUS PALPABLE LUMP SHOULD BE BIOPSIED. Dictated by: Clem Espinal M.D. on 11/17/2024 at 16:54 Approved by: Clem Espinal M.D. on 11/17/2024 at 16:57 Dictated By: Clem Espinal M.D. Signed By:11/17/241658 DD/ 57 TD/TT: Fuels Engineer: Authorizing ProviderResult TypeResult StatusLi Arelijovanny NPCLINISYNC IMAGING Final Result from Last 3 Months or Most Recently Relevant to Health Maintenance Insurance Care Teams Team MemberRelationshipSpecialtyStart DateEnd Date Dung Valdez MD PCP - GeneralFamily Medicine05/13/24 Kirsten Deutsch NP Nurse PractitionerFaCandler County Hospital05/13/24
--- NOTE | 2025-11-18 09:24 | MM_ITS ---
Patient Name: EREN ARCHIBALD MR#: [id number] : 1965 Exam Date: 11/18/2025 Ordering Doctor: ZENA FLORES CNP RADIOLOGY REPORT PROCEDURE: MM TOMOSYNTHESIS SCREENING BI COMPARISON: MM TOMOSYNTHESIS SCREENING BI, 11/17/2024. MM TOMOSYNTHESIS SCREENING BI, 11/14/2023. MG MAMM SCREEN 3D [place] CAD, 11/13/2022. MG MAMM [place] SCRN W CAD DIG, 12/31/2013. INDICATIONS: Screening Calculator Name NCI Breast Cancer Risk Assessment Tool 5 Year Breast Cancer Risk 1.70% Lifetime Breast Cancer Risk 9.10% Personal Breast Cancer No Personal Ovarian Cancer No Treatments None Family Cancers Father with lung cancer at age 71. LOCATION: [facility] BREAST COMPOSITION: There are scattered areas of fibroglandular density. FINDINGS: DIAGNOSTIC CATEGORY 1--NEGATIVE. RIGHT BREAST: No significant suspicious finding. LEFT BREAST: No significant suspicious finding. RECOMMENDATIONS: ROUTINE MAMMOGRAM AND CLINICAL EVALUATION IN 12 MONTHS. Dictated by: Felix Jaramillo MD on 11/18/2025 at 13:20 Approved by: Felix Jaramillo MD on 11/18/2025 at 13:21
--- OUTSIDE RECORDS SUMMARY | 2025-11-18 09:26 | XMS_ITS | CCD ---
Author Organization [facility] Care Team Providers Care Die Repairer Trimmer Dies Name Role Phone YOANA Fuentes, DR CHAPA Admitting Unavailabl e KARASIBlayne ., DR CHAPA Attending Unavailabl e AICHHOLZ, TRANSCRIPTIONIST CADE Primary Care Unavailable YOANA Fuentes, DR CHAPA Consulting Unavailabl e AICHHOLZ, TRANSCRIPTIONIST CADE Admitting Unavailable AICHHOLZ, TRANSCRIPTIONIST CADE Attending Unavailable AICHHOLZ, TRANSCRIPTIONIST CADE Primary Care Unavailable DR AROLDO ELKINS V Consulting Unavailable AICHHOLZ, TRANSCRIPTIONIST CADE Consulting Unavailable AICHHOLZ, TRANSCRIPTIONIST CADE Admitting Unavailable AICHHOLZ, TRANSCRIPTIONIST CADE Attending Unavailable AICHHOLZ, TRANSCRIPTIONIST CADE Primary Care Unavailable AICHHOLZ, TRANSCRIPTIONIST CADE Consulting Unavailable DR INEZ FORD Consulting Unavailable AICHHOLZ, TRANSCRIPTIONIST CADE Admitting Unavailable AICHHOLZ, TRANSCRIPTIONIST CADE Attending Unavailable AICHHOLZ, TRANSCRIPTIONIST CADE Primary Care Unavailable AICHHOLZ, TRANSCRIPTIONIST CADE Consulting Unavailable AICHHOLZ, TRANSCRIPTIONIST CADE Admitting Unavailable AICHHOLZ, TRANSCRIPTIONIST CADE Attending Unavailable AICHHOLZ, TRANSCRIPTIONIST CADE Primary Care Unavailable AICHHOLZ, TRANSCRIPTIONIST CADE Consulting Unavailable DR INEZ FORD Consulting Unavailable RADHA RODRIGUEZ Consulting Unavailable AICHHOLZ, TRANSCRIPTIONIST CADE Admitting Unavailable AICHHOLZ, TRANSCRIPTIONIST CADE Attending Unavailable AICHHOLZ, TRANSCRIPTIONIST CADE Primary Care Unavailable AICHHOLZ, TRANSCRIPTIONIST CADE Consulting Unavailable AICHHOLZ, TRANSCRIPTIONIST CADE Admitting Unavailable AICHHOLZ, TRANSCRIPTIONIST CADE Attending Unavailable AICHHOLZ, TRANSCRIPTIONIST CADE Primary Care Unavailable AICHHOLZ, TRANSCRIPTIONIST CADE Consulting Unavailable DR INEZ FORD Consulting Unavailable AICHHOLZ, TRANSCRIPTIONIST CADE Admitting Unavailable AICHHOLZ, TRANSCRIPTIONIST CADE Attending Unavailable AICHHOLZ, TRANSCRIPTIONIST CADE Primary Care Unavailable AICHHOLZ, TRANSCRIPTIONIST CADE Consulting Unavailable Dung Valdez MD Primary Care Provider [place] AGRICULTURE TECHNICIAN, Cade Unavailable [place] PURCHASING ENGINEER-TRANSCRIPTIONIST, Cade Vital Primary Care Provider RUSHER, CHRISTIAN S Admitting Unavailable RUSHER, CHRISTIAN S Attending Unavailable RUSHER, CHRISTIAN S Referring Unavailable RUSHER, CHRISTIAN S Referring Unavailable AICHHOLZ, CADE Vital Primary Care Unavailable RUSHER, CHRISTIAN S Referring Unavailable AICHHOLZ, CADE Vital Primary Care Unavailable RUSHER, CHRISTIAN S Referring Unavailable AICHHOLZ, CADE Vital Primary Care Unavailable Dung Valdez MD Primary Care Provider [place] AGRICULTURE TECHNICIAN, Cade Unavailable LA NENA, CADE Attending Unavailable RUSHER, CHRISTIAN S Attending Unavailable RUSHER, CHRISTIAN S Referring Unavailable AICHHOLZ, CADE Attending Unavailable RUSHER, CHRISTIAN S Attending Unavailable RUSHER, CHRISTIAN S Attending Unavailable RUSHER, CHRISTIAN S Referring Unavailable RUSHER, CHRISTIAN S Attending Unavailable RUSHER, CHRISTIAN S Attending Unavailable RUSHER, CHRISTIAN S Referring Unavailable RUSHER, CHRISTIAN S Attending Unavailable RUSHER, CHRISTIAN S Referring Unavailable RUSHER, CHRISTIAN S Attending Unavailable RUSHER, CHRISTIAN S Referring Unavailable Dung Valdez MD Primary Care Provider [place] AGRICULTURE TECHNICIAN, Cade Unavailable [place] AGRICULTURE TECHNICIAN-C, Cade Vital Primary Care Provider [place] AGRICULTURE TECHNICIAN-C, Cade Vital Attending Provider Allergies Allergy ClassificationReported Allergen(s)Allergy TypeDate of OnsetReaction(s) Facility (20 sources)Bacitracin; Translations: [BACITRACIN]Drug Gnfpzks30-45-9042Fdetaen [facility] Healthcare Work Phone: Medications Current Medications MedicationDrug Class(es)DatesSig (Normalized)Sig (Original)brompheniramine maleate 0.4 mg/ml / dextromethorphan hydrobromide 2 mg/ml / pseudoephedrine hydrochloride 6 mg/ml oral solution (1 source)alpha-Adrenergic Agonist, Uncompetitive L-euztrb-A-aspartate Receptor Antagonist, Sigma-1 AgonistStart: 43-01-3352tylo 1 mL by mouth every six hours as fezeqfRlymujrxtoqjaaz-Fjqyiwfur-Lp (Bromfed Dm) 2-30-10 mg/5 mL syrup Active 10 ML PO Every 6 hours as needed for cold symptoms 200 0 September 28, 2025 12:00am Upper respiratory tract infection Acute upper respiratory infection, unspecified Complies with drug therapy Completed/Discontinued Medications MedicationDrug Class(es)DatesSig (Normalized)Sig (Original)amoxicillin 875 mg / clavulanate 125 mg oral tablet (2 sources)Penicillin-class AntibacterialStart: 05-04-2024 End: 31-36-1224vkpf 1 tablet by mouth every twelve hoursAmoxicillin-Pot Clavulanate 875-125 mg tablet Discontinued 1 TAB PO Every 12 hours 20 10 0 May 03, 2024 11:00pm September 26, 2025 6:50ammeloxicam 15 mg oral tablet (6 sources)Nonsteroidal Anti-inflammatory DrugStart: 01-06-2025 End: 75-48-8296uqoj 1 tablet by mouth once dailyMeloxicam 15 MG tablet dispersible Indications: Chronic pain of left knee Take 15 mg by mouth Daily30 tablet 1 01/06/2025 02/05/2025 ActiveStart: 01-06-2025 End: 41-36-4387gggf 1 tablet by mouth once dailymeloxicam (Mobic) 15 MG tablet Take 15 mg by mouth Daily 01/06/2025 02/17/2025 Discontinued (Therapy completed) Problems Active Problems Problem ClassificationProblemDateDocumented DateEpisodic/ChronicAcquired foot deformities (20 sources)Acquired hammer toe of left foot; Translations: [Other hammer toe(s) (acquired), left foot]Onset: 794141-52-2770GaiwuqmIoklwhoe foot deformities (2 sources)Acquired deformity of toe of left foot; Translations: [Acquired deformities of toe(s), unspecified,left foot]67-37-9006NfanotebBacfjcnjg of lipid metabolism (20 sources)Hyperlipidemia; Translations: [Hyperlipidemia, unspecified]Onset: 760808-69-2203QatdkspAwvtktdhhvcxba and diverticulitis (20 sources)Diverticular disease; Translations: [Diverticulosis of intestine, part unspecified, without perforation or abscess without bleeding]Onset: 905178-98-7082AosqnppHpfovtmwer disorders (20 sources)Gastroesophageal reflux disease; Translations: [Gastro-esophageal reflux disease without esophagitis]Onset: hronic Immunizations and screening for infectious disease (2 sources)Encounter for screening for human papillomavirus (HPV); Translations: [Contact with or exposure to other viral diseases]Onset: EpisodicMenopausal disorders (20 sources)Menopausal symptom; Translations: [Menopausal and female climacteric states]Onset: 150889-14-7532UkboswnGsvvotookpe deficiencies (3 sources)Vitamin D deficiency; Translations: [Vitamin D deficiency, unspecified]Onset: 632090-39-0839CkkojgoCyfbr acquired deformities (2 sources)Deformity of metatarsal; Translations: [Unspecified acquired deformity of left lower leg]50-28-5637GgrsnlavOcbmr and unspecified benign neoplasm (1 source)Polyp of colon; Translations: [Polyp of colon]60-69-4078LxnbkrkkQwsse connective tissue disease (8 sources)Pain in left foot; Translations: [Pain in left foot]03-11-2025 EpisodicOther ear and sense organ disorders (20 sources)Hearing loss; Translations: [Unspecified hearing loss, unspecified ear]Onset: 224119-09-0718XbvkwhhKjcet ear and sense organ disorders (20 sources)Bilateral deafness; Translations: [Unspecified hearing loss, bilateral]Onset: 548133-51-5285QmhhwwsGvpav gastrointestinal disorders (1 source)History of gastroesophageal reflux disease; Translations: [Personal history of other diseases of the digestive system]99-96-7164HqzfctuqTxgay nervous system disorders (2 sources)Difficulty walking; Translations: [Difficulty in walking, not elsewhere classified]09-75-7288TodgsubNnjgs non-traumatic joint disorders (20 sources)Disorder of joint of foot; Translations: [Other specified joint disorders, left ankle and foot]Onset: 950285-55-0114CpalghyvMswrs non- traumatic joint disorders (20 sources)Pain in left knee; Translations: [Pain in joint, lower leg]Onset: 905068-02-8871GsdzswdcCmqsk non-traumatic joint disorders (2 sources)Instability of joint of left ankle; Translations: [Other instability, left ankle]82-42-7570QoefzlqkCqeuv nutritional; endocrine; and metabolic disorders (20 sources)Body mass index 25-29 - overweight; Translations: [Overweight]Onset: 001094-89-0437WuoyduskYbqmi screening for suspected conditions (not mental disorders or infectious disease) (20 sources)Encounter for screening for malignant neoplasm of cervix; Translations: [Encounter for screening mammogram for malignant neoplasm of breast]Onset: 54-48-0368ApalzgdkNkkak upper respiratory infections (2 sources)Upper respiratory infection; Translations: [Acute upper respiratory infection, unspecified]04-67-5785GmuoaykgXnwpmy media and related conditions (1 source)Otitis media of right ear; Translations: [Otitis media, unspecified, right ear]48-89-4720RdzqwbboLhlhzmjr codes; unclassified (1 source)Family history of malignant neoplasm of trachea, bronchus and lung; Translations: [FAM HX MALIG NEOPLSM TRACH BRON LNG]Onset: 67-62-3376Ofpvwcvt Residual codes; unclassified (1 source)Other specified postprocedural states; Translations: [Other specified postprocedural states]Onset: 62-07-9693KhgxsvvqUhzslvjx codes; unclassified (10 sources)History of operative procedure on foot; Translations: [Other specified postprocedural states]32-32-3445RtqabuglSejujftx codes; unclassified (1 source)Menopause present; Translations: [Asymptomatic menopausal state] 91-14-4919BraqlknjZccqcrxyzwyl (2 sources)Chronic pain of left marf69-15-9033Qqkwuphyhont (1 source)left foot hallux valgus, 2nd metatarsal deformity, acquired deformity, 2nd digit hammer toeOnset: 02-26-2025 Past or Other Problems Problem ClassificationProblemDateDocumented DateEpisodic/ChronicAbdominal pain (8 sources)Right lower quadrant pain; Translations: [Generalized abdominal pain] Onset: 55-89-4408NhkvinezJrldy and unspecified benign neoplasm (20 sources)History of polyp of colon; Translations: [History of colonic polyps] Onset: 634670-39-4829IkljbzgdEkpdv hematologic conditions (4 sources)Elevated erythrocyte sedimentation rate; Translations: [ELEVATED ERYTHROCYTE SED RATE]Onset: 94-32-4577WcxcdsbwUxsxw liver diseases (4 sources)Hepatomegaly, not elsewhere classified; Translations: [HEPATOMEGALY NEC]Onset: 02-61-7403QovdpjsmNyohiyb cyst (1 source)Unspecified ovarian cyst, right side; Translations: [UNSPECIFIED OVARIAN CYST RIGHT SIDE]Onset: 17-23-1155XefzfdzuLeaspcpgpqcv (1 source)Preprocedural examination tbfg94-77-2037 Results Test NameValueInterpretationReference RangeFacilityXR Foot - left 3 Viewson 66-74-3849Otlvlpu Result: AP, medial oblique, lateral views are weight-bearing. Apparent fusion of the 1st MTP. Implants intact without lucency or back out. Hardware in the 2nd metatarsal and 2nd toe are also intact without lucency or back out. Metatarsus adductus present.[facility] (narrative)[facility] Foot - left 3 Viewson 09-20-8464Vneucpb Result: AP, medial oblique, lateral views are weight-bearing. Orthopedic implants in excellent position without lucency or back out. Appears to be complete consolidation of the 1st MTP. Still significant splaying between the 1st, 2nd and 3rd digits. Second MTP remains rectus. PIPJ joint well approximated with implants intact. Appears to be signs of consolidation across the PIPJ joint.[facility] Study observation (narrative)[facility] Foot - left 3 Viewson 09-96-3905Tbebmkc Result: AP, medial oblique, lateral views are weight-bearing. Orthopedic implants noted across the 1st MTP with excellent apposition of the joint. Appears to be consolidation of the joint without any joint space visible. Orthopedic implant in the 2nd PIPJ joint which remains rectus. Orthopedic implant in the 2nd metatarsal head without lucency or back out. Splaying of the 1st and 3rd digits.NOMS HealthcareNOMS HealthcareRadiology Study observation (narrative)NOMS HealthcareXR Foot - left 3 Viewson 90-68-0142Ywezabb Result: AP, medial oblique, lateral views are nonweightbearing. Orthopedic implant noted across the 1st TMT which shows excellent apposition of the fusion site. No signs of any gapping present. Orthopedic implant in the 2nd metatarsal and across the 2nd PIPJ joint without back out or lucency noted. Hallux rectus as well as the 2nd toe.[facility] Radiology Study observation (narrative)[facility] Healthcare1,25-dihydroxyvitamin D [Mass/Vol]on ,25-Dihydroxyvitamin D, S35 pg/cMOlyrrm54-21UleTcyjzeSelect Medical Specialty Hospital - AkronComment on above:Result Comment: NOTE ADDITIONAL INFORMATION This test was developed and its performance characteristics determined by [facility] in a manner consistent with CLIA requirements. This test has not been cleared or approved by the U.S. Food and Drug Administration. Test Performed by: [facility] [address] [place] [address] [employer] Custodian: Virgen Rucker Ph.D.; CLIA# [id number] By: #### 66203- 1, LIVR #### [facility] ([id number]) [address] [place] [address], [address] [place] [address] #### 51377-4 #### [facility] ([id number]) [address] [place] [address], FIRST FLO[address] [place], [place] [address]ENS 12 leadon 75-57-8295OQBMPNUFCOOXURNggRzwgoo Health System Hepatic function 1999 panelon 77-48-5427Xycymlt [Mass/Vol]4.3 g/dL3.2 - 5.3 g/dL [facility] HealthcareALP [Catalytic activity/Vol]63 U/L39 - 130 U/LNOMS HealthcareALT No additional P-5'-P [Catalytic activity/Vol]15 U/L0 - 31 U/LNOMS HealthcareAST [Catalytic activity/Vol]18 U/L0 - 41 U/LNOMS HealthcareBilirubin [Mass/Vol]0.7 mg/dL0.3 - 1.2 mg/dLNOMS HealthcareBilirubin.direct [Mass/Vol]0.1 mg/dL0.0 - 0.4 mg/dLNOMS HealthcareProtein [Mass/Vol]7.4 g/dL6.0 - 8.0 g/dLNOMS Healthcare Comment on above:PERFORMED AT [address],[place], [place] [address]EFXBY PANELon 98-89-4265Gixqdhn [Mass/Vol]4.3 g/dLNormal 3.2-5.3ProMedLos Angeles General Medical CenterComment on above:Performed By: #### 81021-4, LIVR #### [facility] ([id number]) [address] [place] [address] [address] [place] [address] #### 91752-1 #### [facility] ([id number]) [address] [place] [address]LER [Catalytic activity/Vol]63 U/KUybrzx84-628JpyBpujvfChristus Spohn Hospital AliceComment on above:Performed By: #### 83743-1, LIVR #### [facility] ([id number]) [address] [place] [address], [facility] [address] [place] [address] #### 91122-2 #### [facility] ([id number]) [address] [place] [address]300[address]ZXT [Catalytic activity/Vol]15 U/LNormal0-31PCleveland Clinic Akron General Lodi HospitalComment on above:Performed By: #### 77911-2, LIVR #### [facility] ([id number]) [address] [place] [address] [address] [place] [address] #### 52247-6 #### [facility] ([id number]) [address] [place] [address] 10845UYB [Catalytic activity/Vol]18 U/LNormal0-41ProChristus Spohn Hospital AliceComment on above:Performed By: #### 48191-1, LIVR #### [facility] ([id number]) [address] [place] [address], [address] [place] [address] #### 95326-6 #### [facility] ([id number]) [address] [place] [address]Clemtwoja [Mass/Vol]0.7 mg/dLNormal0.3-1.2ProMedica Scripps Mercy HospitalComment on above:Performed By: #### 03663-6, LIVR #### [facility] ([id number]) [address] [place] [address], [address] [place] [address] #### 48169-1 #### [facility] ([id number]) [address] [place] [address]Eidwibiil.direct [Mass/Vol]0.1 mg/dLNormal0.0-0.4ProChristus Spohn Hospital AliceCombronson battle creek hospital on above:Performed By: #### 66546-0, LIVR #### [facility] ([id number]) [address] [place] [address], [address] [address] #### 93077-4 #### [facility] ([id number]) [address] [place] [address]Fupilgb [Mass/Vol]7.4 g/dLNormal6.0-8.0ProChristus Spohn Hospital AliceComment on above:Performed By: #### 76085-5, LIVR #### [facility] ([id number]) [address] [place] [address], [address] [place] [address] #### 21472-9 #### [facility] ([id number]) [address] [place] [address]Ugkbm 1996 panelon 40-33-9680Movzeageovo [Mass/Vol]238 mg/dL Hqbv412 - 200 mg/dLNOMS HealthcareCholesterol in HDL [Mass/Vol]82 mg/dL39 - PINF mg/dLPR[facility] HealthcareComment on above: HDL <40 mg/dL - High Risk HDL > or = 40mg/dL- Desirable HDL >60 mg/dL - Negative Risk Cholesterol in HDL/Total Cholesterol [Mass ratio]2.9 {ratio}1.0 - 5.0[facility] HealthcareComment on above:PERFORMED AT [address],[place], [place] [address]Ukhswyxaysi in LDL [Mass/Vol]134 mg/dLHighNINF - 130 mg/dLPR[facility]DREN'S [facility] HealthcareComment on above: LDL <100 mg/dL - Desirable LDL >160 mg/dL - High Risk Cholesterol in VLDL [Mass/Vol]22 mg/dL0 - 30 mg/dLPR[facility] HealthcareInterpretation and review of laboratory resultsAbnormalPRIMARY CHILDREN'S [facility]ITAL HealthcareTriglyceride [Mass/Vol] 108 mg/dL27 - 150 mg/dLNOCO HealthcareCholesterol [Mass/Vol]238 mg/zDTvjy449-575 ProMedica Scripps Mercy HospitalComment on above:Performed By: #### 11408-8, LIVR #### [facility] ([id number]) [address] [place] [address], [address] [place] [address] #### 05549-4 #### [facility] ([id number]) [address] [place] [address], [address] [place], [place] [address]Qujovrpokqi in HDL [Mass/Vol]82 mg/dLNormal>39ProMedica Scripps Mercy HospitalComment on above:Result Comment: HDL <40 mg/dL - High Risk HDL > or = 40mg/dL- Desirable HDL >60 mg/dL - Negative Risk Performed By: #### 56750-2, LIVR #### [facility] ([id number]) [facility] [facility], [address] [place] [address] #### 62323-8 #### [facility] ([id number]) [address] [place] [address]Uulmgsglpjp in LDL [Mass/Vol]134 mg/dLHigh<130ProChristus Spohn Hospital AliceComment on above:Result Comment: LDL <100 mg/dL - Desirable LDL >160 mg/dL - High Risk Performed By: #### 22576-8, LIVR #### [facility] ([id number]) [facility] [facility], [address] [place] [address] #### 17354-8 #### [facility] ([id number]) [address] [place] [address]Syvapoefczv in VLDL [Mass/Vol]22 mg/dLNormal0-30ProChristus Spohn Hospital AliceComment on above:Performed By: #### 53372-0, LIVR #### [facility] ([id number]) [address] [place] [address], [address] [place] [address] #### 21655-8 #### [facility] ([id number]) [address] [place] [address]QITQQYZOUYL:HDL2.6Klrgsd7.0-5.0[facility] Comment on above:Performed By: #### 32788-5, LIVR #### [facility] ([id number]) [address] [place] [address], [address] [place] [address] #### 06238-5 #### [facility] ([id number]) [address] [place] [address], [place], [place] [address]Upyumdqzthdc [Mass/Vol]108 mg/mPVtdlcj15-767DykUdoeul Scripps Mercy HospitalComment on above:Performed By: #### 52752-9, LIVR #### [facility] ([id number]) [address] [facility], [address] [place] [address] #### 72285-7 #### [facility] ([id number]) [address] [place] [address], [place], [place] [address]Gd Panel Informationon 28-79-1624PQGA HealthcareXR Knee - left 1 or 2 Viewson 25-24-1246[address] [address] XRay Report Signed Patient: EREN ARCHIBALD MR#: [id number] : 1965 Acct:[id number] Age/Sex: 59 / F ADM Date: 01/12/25 Loc: RAD Attending Dr: Cade Deutsch NP Ordering Physician: Cade Deutsch NP Date of Service: 01/12/25 Procedure(s): XR knee LT 2V Accession Number(s): [id number] cc: Cade Deutsch NP [place] [id number] Patient Name: EREN ARCHIBALD MRN: [id number] date: 1965 Sex: F Assigned Patient Location: [facility] Current Patient Location: [facility] Accession/Order Number: [id number] Exam Date: 01/12/2025 13:29 Report Date: 01/12/2025 13:30 At the request of: CADE DEUTSCH NP Procedure: XR knee LT 2V LEFT KNEE - 2 VIEWS COMPARISON: None CLINICAL DATA: Chronic left knee pain, greater when ambulating. No injury. AP and lateral views were obtained. No acute fracture or dislocation is identified. No disproportionate joint space narrowing is seen. There is minor squaring off the articular margins. There is no significant knee effusion or soft tissue swelling. XR/XR knee LT 2V IMPRESSION: MINIMAL DEGENERATIVE CHANGE. NO ACUTE PLAIN FILM FINDINGS. Impression dictated by: Yu Jackson M.D.01/12/2025 1:30 PM Dictation Location: [place] [address] Electronically authenticated by: [id number] Y Date: 01/12/2025 13:30 Dictated By: Yu Jackson M.D. Signed By: 01/12/25 1333 DD/ 1330 TD/TT: Cpa Tax:TBHRadiology, Radiologist, - 01/12/2025 [place] [address] XRay Report Signed Patient: EREN ARCHIBALD MR#: [id number] : 1965 Acct:[id number] Age/Sex: 59 / F ADM Date: 01/12/25 Loc: [facility] Attending Dr: Cade Deutsch AGRICULTURE TECHNICIAN Ordering Physician: Cade Deutsch NP Date of Service: 01/12/25 Procedure(s): XR knee LT 2V Accession Number(s): [id number] cc: Cade Deutsch NP [place] [id number] Patient Name: EREN ARCHIBALD MRN: [id number] date: 1965 Sex: F Assigned Patient Location: [facility] Current Patient Location: [facility] Accession/Order Number: [id number] Exam Date: 01/12/2025 13:29 Report Date: 01/12/2025 13:30 At the request of: CADE DEUTSCH NP Procedure: XR knee LT 2V LEFT KNEE - 2 VIEWS COMPARISON: None CLINICAL DATA: Chronic left knee pain, greater when ambulating. No injury. AP and lateral views were obtained. No acute fracture or dislocation is identified. No disproportionate joint space narrowing is seen. There is minor squaring off the articular margins. There is no significant knee effusion or soft tissue swelling. XR/XR knee LT 2V IMPRESSION: MINIMAL DEGENERATIVE CHANGE. NO ACUTE PLAIN FILM FINDINGS. Impression dictated by: Yu Jackson M.D.01/12/2025 1:30 PM Dictation Location: [place] [address] Electronically authenticated by: [id number] Y Date: 01/12/2025 13:30 Dictated By: Yu Jackson M.D. Signed By: 01/12/25 1333 DD/ 1330 TD/TT: Cpa Tax: DELIA HealthcareRadiology Study observation (narrative)NOMS HealthcareXR Knee - left 1 or 2 ViewsOrdered By: Radiologist Radiology on 58-33-3436[facility] Healthcare Work Phone: mm TOMOSYNTHESIS SCREENING BIon 17-31[place] [address] Mammography Report Signed Patient: EREN ARCHIBALD MR#: [id number] : 1965 Acct:[id number] Age/Sex: 59 / F ADM Date: 11/17/24 Loc: MAMMO Attending Dr: Cade Deutsch NP Ordering Physician: Cade Deutsch NP Results: Date of Service: 11/17/24 Follow Up: Procedure(s): MM tomosynthesis screening BI Accession Number(s): [id number] cc: Cade Deutsch NP Patient Name: EREN ARCHIBALD MR#: [id number] : 1965 Exam Date: 11/17/2024 Ordering Doctor: ZENA Deutsch CNP RADIOLOGY REPORT PROCEDURE: MM TOMOSYNTHESIS SCREENING BI COMPARISON: MM TOMOSYNTHESIS SCREENING BI, 11/14/2023. MG MAMM SCREEN 3D [place] CAD, 11/13/2022. MG MAMM SCREEN 3D [place] CAD, 11/10/2021. MG MAMM [place] SCRN W CAD DIG, 12/31/2013. INDICATIONS: Screening Calculator Name NCI Breast Cancer Risk Assessment Tool 5 Year Breast Cancer Risk 1.60% Lifetime Breast Cancer Risk 9.30% Personal Breast Cancer No Personal Ovarian Cancer No Treatments None Family Cancers Father with lung cancer at age 71. LOCATION: [facility] BREAST COMPOSITION: The breasts are heterogeneously dense,which may obscure small masses. FINDINGS: DIAGNOSTIC CATEGORY 1--NEGATIVE. RIGHT BREAST: No significant suspicious finding. No significant change has occurred. LEFT BREAST: No significant suspicious finding. No significant change has occurred. RECOMMENDATIONS: ROUTINE MAMMOGRAM AND CLINICAL EVALUATION IN 12 MONTHS. PLEASE NOTE: A NORMAL MAMMOGRAM DOES NOT EXCLUDE THE POSSIBILITY OF BREAST CANCER. A CLINICALLY SUSPICIOUS PALPABLE LUMP SHOULD BE BIOPSIED. Dictated by: Inez Ford M.D. on 11/17/2024 at 16:54 Approved by: Inez Ford M.D. on 11/17/2024 at 16:57 Dictated By: Inez Ford M.D. Signed By: 11/17/241658 DD/ 57 TD/TT: Cpa Tax:TBHRadiology, Radiologist, - 11/17/2024 [place] [address] Mammography Report Signed Patient: EREN ARCHIBALD MR#: [id number] : 1965 Acct:[id number] Age/Sex: 59 / F ADM Date: 11/17/24 Loc: MAMMO Attending Dr: Cade Deutsch NP Ordering Physician: Cade Deutsch NP Results: Date of Service: 11/17/24 Follow Up: Procedure(s): MM tomosynthesis screening BI Accession Number(s): [id number] cc: Cade Deutsch NP Patient Name: EREN ARCHIBALD MR#: [id number] : 1965 Exam Date: 11/17/2024 Ordering Doctor: ZENA Deutsch CNP RADIOLOGY REPORT PROCEDURE: MM TOMOSYNTHESIS SCREENING BI COMPARISON: MM TOMOSYNTHESIS SCREENING BI, 11/14/2023. MG MAMM SCREEN 3D [place] CAD, 11/13/2022. MG MAMM SCREEN 3D [place] CAD, 11/10/2021. MG MAMM [place] SCRN W CAD DIG, 12/31/2013. INDICATIONS: Screening Calculator Name NCI Breast Cancer Risk Assessment Tool 5 Year Breast Cancer Risk 1.60% Lifetime Breast Cancer Risk 9.30% Personal Breast Cancer No Personal Ovarian Cancer No Treatments None Family Cancers Father with lung cancer at age 71. LOCATION: [facility] BREAST COMPOSITION: The breasts are heterogeneously dense,which may obscure small masses. FINDINGS: DIAGNOSTIC CATEGORY 1--NEGATIVE. RIGHT BREAST: No significant suspicious finding. No significant change has occurred. LEFT BREAST: No significant suspicious finding. No significant change has occurred. RECOMMENDATIONS: ROUTINE MAMMOGRAM AND CLINICAL EVALUATION IN 12 MONTHS. PLEASE NOTE: A NORMAL MAMMOGRAM DOES NOT EXCLUDE THE POSSIBILITY OF BREAST CANCER. A CLINICALLY SUSPICIOUS PALPABLE LUMP SHOULD BE BIOPSIED. Dictated by: Inez Ford M.D. on 11/17/2024 at 16:54 Approved by: Inez Ford M.D. on 11/17/2024 at 16:57 Dictated By: Inez Ford M.D. Signed By: 11/17/241658 DD/ 57 TD/TT: Cpa Tax: DELIA [facility] CenterRadiology Study observation (narrative)[facility] TOMOSYNTHESIS SCREENING BIOrdered By: Radiologist Radiology on [id number] WHObyYOU Work Phone: XR FOOT LT MIN 3Von 90-86-6574[place] [address] XRay Report Signed Patient: EREN ARCHIBALD MR#: [id number] : 1965 Acct:[id number] Age/Sex: 58 / F ADM Date: 07/30/24 Loc: Attending Dr: Ana Oro D.P.M. Ordering Physician: Ana Oro D.P.M. Date of Service: 07/30/24 Procedure(s): XR foot LT min 3V Accession Number(s): [id number] cc: Cade Deutsch AGRICULTURE TECHNICIAN; Ana Oro D.P.M. [address] [place] [address] Patient Name: EREN ARCHIBALD MRN: [id number] date: 1965 Sex: F Assigned Patient Location: Current Patient Location: Accession/Order Number: [id number] Exam Date: 07/30/2024 13:05 Report Date: 08/01/2024 04:43 At the request of: ANA ORO Procedure: XR foot LT min 3V PROCEDURE: XR foot LT min 3V HISTORY: LEFT FOOT PAIN COMPARISON: None. FINDINGS: BONES:Narrowing of the first metatarsophalangeal joint and lateral deviation at toe/bunion formation. Abnormal widening of the interspace between the second and third toes with medial deviation second toe and lateral deviation of the third toe; unremarkable metatarsophalangeal joints. SOFT TISSUES:No visible soft tissue swelling. EFFUSION:None visible. OTHER: Negative. XR/XR foot LT min 3V IMPRESSION: 1. Bunion formation. 2. Splaying of the second and third toes. Electronically authenticated by: INEZ FORD Date: 08/01/2024 04:43 Dictated By: Inez Ford M.D. Signed By: 08/01/24445 DD/ 2 TD/TT: Cpa Tax:ALIVIAHRadiology, Radiologist, - 08/01/2024 [place] [address] XRay Report Signed Patient: EREN ARCHIBALD MR#: [id number] : 1965 Acct:[id number] Age/Sex: 58 / F ADM Date: 07/30/24 Loc: Attending Dr: Ana Oro D.P.M. Ordering Physician: Ana Oro D.P.M. Date of Service: 07/30/24 Procedure(s): XR foot LT min 3V Accession Number(s): [id number] cc: Cade Deutsch AGRICULTURE TECHNICIAN; Ana Oro D.P.M. [address] [place] [address] Patient Name: EREN ARCHIBALD MRN: [id number] date: 1965 Sex: F Assigned Patient Location: Current Patient Location: Accession/Order Number: [id number] Exam Date: 07/30/2024 13:05 Report Date: 08/01/2024 04:43 At the request of: ANA ORO Procedure: XR foot LT min 3V PROCEDURE: XR foot LT min 3V HISTORY: LEFT FOOT PAIN COMPARISON: None. FINDINGS: BONES:Narrowing of the first metatarsophalangeal joint and lateral deviation at toe/bunion formation. Abnormal widening of the interspace between the second and third toes with medial deviation second toe and lateral deviation of the third toe; unremarkable metatarsophalangeal joints. SOFT TISSUES:No visible soft tissue swelling. EFFUSION:None visible. OTHER: Negative. XR/XR foot LT min 3V IMPRESSION: 1. Bunion formation. 2. Splaying of the second and third toes. Electronically authenticated by: INEZ FORD Date: 08/01/2024 04:43 Dictated By: Inez Ford M.D. Signed By: 08/01/24445 DD/ 2 TD/TT: Cpa Tax: DELIA HealthcareRadiology Study observation (narrative)NOMSushil HealthcareXR FOOT LT MIN 3VOrdered By: Radiologist Radiology on [id number] Work Phone: mm TOMOSYNTHESIS SCREENING BIon 50-14-5837[place]cj[place]ad [place] [address] Mammography Report Signed Patient: EREN ARCHIBALD MR#: [id number] : 1965 Acct:[id number] Age/Sex: 58 / F ADM Date: 11/14/23 Loc: MAMMO Attending Dr: Cade Deutsch NP Ordering Physician: Cade Deutsch NP Results: Date of Service: 11/14/23 Follow Up: Procedure(s): MM tomosynthesis screening BI Accession Number(s): [id number] cc: Cade Deutsch NP Patient Name: EREN ARCHIBALD MR#: [id number] : 1965 Exam Date: 11/14/2023 Ordering Doctor: ZENA Deutsch CNP RADIOLOGY REPORT PROCEDURE: MM TOMOSYNTHESIS SCREENING BI COMPARISON: MG MAMM SCREEN 3D [place] CAD, 11/13/2022. MG MAMM SCREEN 3D [place] CAD, 11/10/2021. MG MAMM SCREEN [place] W CAD, 11/09/2020. MG MAMM [place] SCRN W CAD DIG, 12/31/2013. INDICATIONS: Screening Calculator Name NCI Breast Cancer Risk Assessment Tool 5 Year Breast Cancer Risk 1.60% Lifetime Breast Cancer Risk 9.50% Personal Breast Cancer No Personal Ovarian Cancer No Treatments None Family Cancers Father with lung cancer at age 71. LOCATION: [facility] BREAST COMPOSITION: Heterogeneously dense,which may obscure small masses. FINDINGS: DIAGNOSTIC CATEGORY 1--NEGATIVE. RIGHT BREAST: No significant suspicious finding. No significant change has occurred. LEFT BREAST: No significant suspicious finding. No significant change has occurred. RECOMMENDATIONS: ROUTINE MAMMOGRAM AND CLINICAL EVALUATION IN 12 MONTHS. PLEASE NOTE: A NORMAL MAMMOGRAM DOES NOT EXCLUDE THE POSSIBILITY OF BREAST CANCER. A CLINICALLY SUSPICIOUS PALPABLE LUMP SHOULD BE BIOPSIED. Dictated by: Inez Ford M.D. on 11/15/2023 at 07:37 Approved by: Inez Ford M.D. on 11/15/2023 at 07:41 Dictated By: Inez Ford M.D. Signed By: 11/15/23 0742 DD/ 0741 TD/TT: Cpa Tax:TBHRadiology, Radiologist, MD - 11/15/2023 [place] [address] Mammography Report Signed Patient: EREN ARCHIBALD MR#: [id number] : 1965 Acct:[id number] Age/Sex: 58 / F ADM Date: 11/14/23 Loc: MAMMO Attending Dr: Cade Deutsch NP Ordering Physician: Cade Deutsch NP Results: Date of Service: 11/14/23 Follow Up: Procedure(s): MM tomosynthesis screening BI Accession Number(s): [id number] cc: Cade Deutsch NP Patient Name: EREN ARCHIBALD MR#: [id number] : 1965 Exam Date: 11/14/2023 Ordering Doctor: ZENA Deutsch CNP RADIOLOGY REPORT PROCEDURE: MM TOMOSYNTHESIS SCREENING BI COMPARISON: MG MAMM SCREEN 3D [place] CAD, 11/13/2022. MG MAMM SCREEN 3D [place] CAD, 11/10/2021. MG MAMM SCREEN [place] W CAD, 11/09/2020. MG MAMM [place] SCRN W CAD DIG, 12/31/2013. INDICATIONS: Screening Calculator Name NCI Breast Cancer Risk Assessment Tool 5 Year Breast Cancer Risk 1.60% Lifetime Breast Cancer Risk 9.50% Personal Breast Cancer No Personal Ovarian Cancer No Treatments None Family Cancers Father with lung cancer at age 71. LOCATION: [facility] BREAST COMPOSITION: Heterogeneously dense,which may obscure small masses. FINDINGS: DIAGNOSTIC CATEGORY 1--NEGATIVE. RIGHT BREAST: No significant suspicious finding. No significant change has occurred. LEFT BREAST: No significant suspicious finding. No significant change has occurred. RECOMMENDATIONS: ROUTINE MAMMOGRAM AND CLINICAL EVALUATION IN 12 MONTHS. PLEASE NOTE: A NORMAL MAMMOGRAM DOES NOT EXCLUDE THE POSSIBILITY OF BREAST CANCER. A CLINICALLY SUSPICIOUS PALPABLE LUMP SHOULD BE BIOPSIED. Dictated by: Inez Ford M.D. on 11/15/2023 at 07:37 Approved by: Inez Ford M.D. on 11/15/2023 at 07:41 Dictated By: Inez Ford M.D. Signed By: 11/15/23 0742 DD/ 0741 TD/TT: Cpa Tax: [facility] SystemRadiology Study observation (narrative)[facility] TOMOSYNTHESIS SCREENING BIOrdered By: Radiologist Radiology on [id number] Health System Work Phone: pap ACOG PANEL 2: 30 to 65on 01-12-2023..NormalThe [facility] HospitalComment on above:Result Comment: Performed at: WBPerformed By: #### [id number] ####[facility] [address] [place] [address]DrAlfredo Freeman Gdln ACOG Dzjmttk70-03UkvbghEwqUniversity Hospitals [facility] Comment on above:Performed By: #### [id number] ####[facility] [address] [place] [address]11DrAlfredo NoriegaDIAGNOSIS:CommentSelect Medical [facility] Clinic Rehabilitation Hospital, BeachwoodComment on above:Result Comment: NEGATIVE FOR INTRAEPITHELIAL LESION OR MALIGNANCY. CELLULAR CHANGES ASSOCIATED WITH ATROPHY ARE PRESENT. 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 Performed at: WBPerformed By: #### [id number] ####[facility] [address] [place] [address]Dr. Uriah WoodV AptimaQNSPAPNormalMercy Health St. Vincent Medical Center on above:Result Comment: Test not performed. Liquid based PAP vial contained insufficient specimen for molecular testing; likely a consequence of insufficient cellularity in original collection. This nucleic acid amplification test detects fourteen high-risk HPV types (16,18,31,33,35,39,45,51,52,56,58,59,66,68) without differentiation. Performed at: =GPerformed By: #### [id number] ####[facility] [address] [place], [place] [address]Dr. Uriah NoriegaHPV Genotype ReflexComment NormalMercy Health St. Vincent Medical Center on above:Result Comment: Criteria not met, HPV Genotype not performed. Performed at: WBPerformed By: #### [id number] ####[place] [address]Dr. Uriah NoriegaMethodology:CommentAdena Health System on above:Result Comment: This liquid based ThinPrep(R) pap test was screened with the use of an image guided system. Performed at: WBPerformed By: #### [id number] ####[place] [address]Dr. Uriah NoriegaNote:CommentJumaWyandot Memorial Hospital on above:Result Comment: The Pap smear is a screening test designed to aid in the detection of premalignant and malignant conditions of the uterine cervix. It is not a diagnostic procedure and should not be used as the sole means of detecting cervical cancer. Both false-positive and false-negative reports do occur. . Performed at: WBPerformed By: #### [id number] ####[facility] [address] [place], [place] [address]Dr. Uriah NoriegaPerformed by:RoxanneWyandot Memorial Hospital on above:Result Comment: Jonn Deng Piano Professor (ASCP) Performed at: WBPerformed By: #### [id number] ####[facility] [address] [place], [place] [address]Dr. Uriah NoriegaQC reviewed by:CommentNormmolina The Foxboro HospitalComment on above:Result Comment: Joaquina Larios, Piano Professor Performed at: WBPerformed By: #### [id number] ####[facility] [address] [place], [place] [address]Vk. Uriah NoriegaSpecimen adequacy:Comment NormalThe [facility] HospitalCombronson battle creek hospital on above:Result Comment: Satisfactory for evaluation. Endocervical and/or squamous metaplastic cells (endocervical component) are present. Performed at: WBPerformed By: #### [id number] ####[facility] [address] [place], [place] [address]Dj. Uriah ChangMG MAMM SCREEN 3D CAR[place] CADon 68-11-1615EA MAMM SCREEN 3D [place] CADPatient: EREN ARCHIBALD Exam Date: 11/13/2022 : 1965 Gender:F Ordering : [facility]mission #: [id number] Family : Order #: [id number] CLICK HERE TO VIEW EXAM RADIOLOGY REPORT [...] lung cancer at age 72. LOCATION: [facility] BREAST COMPOSITION: Heterogeneously dense,which may obscure [...] LUMP SHOULD BE BIOPSIED. Dictated by: Aroldo Elkins MD on 11/14/2022 at 10:15 Approved by: Aroldo Elkins MD on 11/14/2022 at 10:16[facility], BeachwoodUS SINGLE QUAD RT UPPERon 28-32-4559SP SINGLE QUAD RT UPPEREXAMINATION: US SINGLE QUAD RT UPPER HISTORY: Large [...] Electronically authenticated by: INEZ FORD Date: 2022-08-26 16:42NormMercy Memorial Hospitale [facility] HospitalCRPon 93-23-7895BLE [Mass/Vol]mg/LNormal<=1.0The [facility] HospitalComment on above:Performed By: #### CRP #### [facility] [address] [place], [place] [address] Dr. Uriah Alexis RATE OUR LADY OF FATIMA HOSPITALREN 56-83-5258JQT RATE32 mm/hrCritically high <=30The [facility] HospitalComment on above:Performed By: #### SEDR ####[facility] [address] [place], [place] [address]EgDr. Uriah NoriegaI ABDOMEN WO W CONon 80-18-9104CDK ABDOMEN WO W CONINDICATION: Large liver EXAMINATION: MRI - MRI ABDOMEN [...] Electronically authenticated by: RADHA RODRIGUEZ Date: 2022-08-09 14:[address] [place] [address] PELVIS AND TRANSVAGon 36-21-9351PN PELVIS AND TRANSVAG EXAMINATION: US PELVIS AND [...] Electronically authenticated by: INEZ FORD Date: 2022-08-07 15:40[facility], BeachwoodCT ABD/PELV W CONon 95-92-6711BR ABD/PELV W CONEXAMINATION: CT ABD/PELV W CON HISTORY: Right lower [...] Electronically authenticated by: INEZ FORD Date: 2022-07-13 06:30NormalThe [facility] HospitalOCC BLD IMMUNOASSAYon 76-44-5872TBMXDN BLOODNegativeNormal NEGATIVEThe [facility] HospitalComment on above:Performed By: #### OBIA ####[facility] [address] [place] [address]Dr. Uriah DelatorreC AUTO DIFFon 28-83-3121ICQM #0.1 103/ulNormal0.0-0.1The [facility] HospitalComment on above:Performed By: #### CBC #### [facility] [address] [place] [address] [address] Uriah NoriegaBasophils/100 WBC (Bld)0.9 %Normal0.2-2.0[facility] Comment on above:Performed By: #### CBC #### [facility] [address] [place] [address] [address] Uriah Duarte #0.4 103/ulNormal0.0-0.7The [facility] HospitalComment on above: Performed By: #### CBC #### [facility] [address] [place] [address] [address] Uriah Walkerosinophils/100 WBC (Bld)5.6 %Normal0.9-7.0[facility] Comment on above:Performed By: #### CBC #### [facility] [address] [place] [address] [address] Uriah Walkerrythrocyte distribution width (RBC) [Ratio]12.4 %Zevspu76.0-15.0 The [facility] HospitalComment on above:Performed By: #### CBC #### [facility] [address] [place] [address] [address] Uriah NoriegaHematocrit (Bld) [Volume fraction]42.3 %Gezxeq91.0-48.0The [facility] HospitalComment on above:Performed By: #### CBC #### [facility] [address] [place] [address] [address] Uriah NoriegaHemoglobin (Bld) [Mass/Vol]13.8 g/mDYhqlhd55.0-16.0The [facility] HospitalComment on above:Performed By: #### CBC #### [facility] [address] [place] [address] Dr. Uriah Velazquez #0.01 10e3/ulNormal0.00-0.03The [facility] HospitalComment on above:Performed By: #### CBC #### [facility] [address] [place] [address] Dr. Uriah Velazquez %0.2 %Normal0.0-0.5The [facility] HospitalComment on above: Performed By: #### CBC #### [facility] [address] [place] [address] Dr. Uriah Damon #1.8 103/ulNormal1.2-3.8The [facility] HospitalComment on above:Performed By: #### CBC #### [facility] [address] [place] [address] Dr. Uriah Luxhocytes/100 WBC (Bld)27.5 %Hacpwx06.5-60.0The [facility] HospitalComment on above:Performed By: #### CBC #### [facility] [address] [place] [address] Dr. Uriah GargGREENE MEMORIAL [facility] DIFF REQNONormalThe [facility] HospitalComment on above: Performed By: #### CBC #### [facility] [address] [place] [address] Dr. Uriah Neely (RBC) [Entitic mass]28.6 laIajwce79.7-34.0The [facility] HospitalComment on above:Performed By: #### CBC #### [facility] [address] [place] [address] Dr. Uriah Neely (RBC) [Mass/Vol]32.6 g/dDNzldti72.9-35.2The [facility] HospitalComment on above:Performed By: #### CBC #### [facility] [address] [place] [address] Dr. Uriah NeelyV (RBC) [Entitic vol]87.8 gQSdxdue71.0-99.0The [facility] HospitalComment on above:Performed By: #### CBC #### [facility] [address] [place] [address] Dr. Uriah Villanueva #0.6 103/ulNormal0.3-0.8The [facility] HospitalComment on above:Performed By: #### CBC #### [facility] [address] [place] [address] Dr. Uriah Coolocytes/100 WBC (Bld)9.4 %Normal1.7-12.0The [facility] Comment on above:Performed By: #### CBC #### [facility] [address] [place] [address] Dr. Uriah Bhatt #3.7 103/ulNormal1.4-6.5The [facility] HospitalComment on above:Performed By: #### CBC #### [facility] [address] [place] [address] Dr. Uriah Storyutrophils/100 WBC (Bld)56.4 %Lbdsgo42.0-75.0The [facility] HospitalComment on above:Performed By: #### CBC #### [facility] [address] [place] [address] Dr. Uriah Tillman mean volume (Bld) [Entitic vol]10.4 fLNormal9.5-13.5The [facility] HospitalComment on above:Performed By: #### CBC #### [facility] [address] [place] [address] Dr. Uriah UrbanT314 103/cvRpythd895-131Lcc [facility] HospitalComment on above: Performed By: #### CBC #### [facility] [address] [place] [address] Dr. Uriah DohertyC4.82 106/ulNormal4.20-5.40The [facility] HospitalComment on above:Performed By: #### CBC #### [facility] [address] [place] [address] Dr. Yilan ChangWBC6.6 103/ulNormal4.0-11.0The [facility] HospitalComment on above: Performed By: #### CBC #### [facility] [address] [place] [address] Dr. Uriah Busby 14-26-7470LRJ8.1 mg/dLCritically high<=1.0The [facility] HospitalComment on above:Performed By: #### CRP, CMP ####[facility] [address] [place] [address]Dr. Uriah ChangCULTURE URINE on 80-17-7139MQSSCZF URINECulture Observations: MODERATE GROWTH OF MIXED GENITAL ELOISA. NO POTENTIAL PATHOGENS SEEN.NormalThe [facility] HospitalComment on above:Performed By: #### URCX ####[facility] [address] [place] [address]Dr. Uriah NoriegaPREG HCG QUAL on 76-62-8937JXHBDERNU, QUALNegativeNormalNEGATIVEThe [facility] HospitalComment on above:Performed By: #### PREG #### [facility] [address] [place] [address] Dr. Uriah NoriegaPROF 14(COMP METB)on 41-04-8925Pkabned [Mass/Vol]3.5 g/dLNormal 3.4-5.0The [facility] HospitalComment on above:Performed By: #### CRP, CMP #### [facility] [address] [place] [address] Dr. Uriah NoriegaAlbumin/Globulin [Mass ratio]0.9 {ratio}NormalThe [facility] HospitalComment on above:Performed By: #### CRP, CMP #### [facility] [address] [place] [address] Dr. Uriah Zamora [Catalytic activity/Vol]67 U/EQtxnmr96-867Fxo [facility] HospitalCombronson battle [facility] hospital on above:Performed By: #### CRP, CMP #### [facility] [address] [place] [address] Dr. Uriah Whalen [Catalytic activity/Vol]19 U/MGbzfnn26-08Ycs [facility] HospitalComment on above:Performed By: #### CRP, CMP #### [facility] [address] [place] [address] [address] Uriah Victoriaon gap [Moles/Vol]11.9 mmol/LNormalThe [facility] Comment on above:Performed By: #### CRP, CMP #### [facility] [address] [place] [address] [address] Uriah NoriegaAST [Catalytic activity/Vol]21 U/GFdvvua56-87Wwq [facility] HospitalComment on above:Performed By: #### CRP, CMP #### [facility] [address] [place] [address] [address] Uriah NoriegaBilirubin [Mass/Vol]0.3 mg/dLNormal0.2-1.0[facility] Comment on above:Performed By: #### CRP, CMP #### [facility] [address] [place] [address] [address] Uriah NoriegaCalcium [Mass/Vol]8.9 mg/dLNormal8.5-10.1[facility] Comment on above:Performed By: #### CRP, CMP #### [facility] [address] [place] [address] [address] Uriah NoriegaChloride [Moles/Vol]104 mmol/TClmfdh92-659Gcw [facility] Comment on above:Performed By: #### CRP, CMP #### [facility] [address] [place] [address] [address] Uriah NoriegaCO2 [Moles/Vol]27.4 mmol/DJpvyxr31.0-32.0The [facility] Comment on above:Performed By: #### CRP, CMP #### [facility] [address] [place] [address] [address] Uriah NoriegaCreatinine [Mass/Vol]0.75 mg/dLNormal0.55-1.02The [facility] HospitalComment on above:Performed By: #### CRP, CMP #### [facility] [address] [place] [address] [address] Kruse ChangEGFR-AF SCOTTISH>60Normal>=60The [facility] HospitalComment on above:Performed By: #### CRP, CMP #### [facility] [address] [place] [address] [address] Uriah WalkerGFR-NON AF SCOTTISH>60Normal>=60The [facility] HospitalComment on above:Performed By: #### CRP, CMP #### [facility] [address] [place] [address] [address] Uriah NoriegaGlobulin (S) [Mass/Vol]4.0 g/dLNormalThe [facility] HospitalComment on above:Performed By: #### CRP, CMP #### [facility] [address] [place] [address] [address] Uriah NoriegaGlucose [Mass/Vol]92 mg/qYMjzunw51-081Gsz [facility] Comment on above:Performed By: #### CRP, CMP #### [facility] [address] [place] [address] [address] Uriah NoriegaPotassium [Moles/Vol]4.3 mmol/LNormal3.5-5.1The [facility] Comment on above:Performed By: #### CRP, CMP #### [facility] [address] [address] [address] Uriah NoriegaProtein [Mass/Vol]7.5 g/dLNormal6.4-8.2[facility] Comment on above:Performed By: #### CRP, CMP #### [facility] [address] [address] [address] Uriah NoriegaSodium [Moles/Vol]139 mmol/TMxsibi706-542Fuw [facility] Comment on above:Performed By: #### CRP, CMP #### [facility] [address] [address] [address] Uriah NoriegaUrea nitrogen [Mass/Vol]13.0 mg/dLNormal7.0-18.0The [facility] HospitalComment on above:Performed By: #### CRP, CMP #### [facility] [address] [address] [address] Uriah NoriegaUrea nitrogen/Creatinine [Mass ratio]17.3 mg/mgNormalThe [facility]boro HospitalComment on above:Performed By: #### CRP, CMP #### [facility] [address] [address] [address] Uriah Alexis RATE WESTERGRENon 81-04-2514GOA RATE77 mm/hrCritically high <=30The [facility] HospitalComment on above:Performed By: #### SEDR #### [facility] [address] [address] [address] Uriah Dang (CLEAN/CATCH) DIE TESTER/MICRO IF IND.on 21-48-2428Ogdzighwh Ql (U) SMALLAbnormalNEGATIVEUniversity Hospitals Cleveland Medical CenterComment on above:Performed By: #### BRENDA KEITHICRO #### [facility] [address] [address] [address] Uriah NoriegaClarity (U)CLOUDYAbnormalCLEARThRegency Hospital Cleveland WestComment on above:Performed By: #### BRENDA KEITHICRO #### [facility] [address] [address] [address] Uriah Perrylor (U)YELLOWNormalYELLOWUniversity Hospitals Cleveland Medical CenterComment on above: Performed By: #### BRENDA KEITHICRO #### [facility] [address] [address] [address] Uriah NoriegaGlucose Ql (U)NegativeNormalNEGATIVEUniversity Hospitals Cleveland Medical CenterComment on above:Performed By: #### INNA UMICRO #### [facility] [address] [address] [address] Uriah NoriegaHemoglobin Ql (U)TRACE-INTACTAbnormalNEGATIVEUniversity Hospitals Cleveland Medical CenterComment on above:Performed By: #### UACSDANY UMICRO #### [facility] [address] [address] [address] Uriah NoriegaKetones Ql (U)15 mg/dlAbnormalNEGATIVESelect Medical [facility]ty [facility] on above:Performed By: #### UACSDANY UMICRO #### [facility] [address] [address] [address] Uriah TeranOCYTESTRACEAbnormalNEGATIVEThe [facility] HospitalComment on above:Performed By: #### DAYANA KEITH #### [facility] [address] [place] [address] Dr. Uriah Jacobson Ql (U)NegativeNormalNEGATIVEThe [facility] HospitalComment on above:Performed By: #### DAYANA KEITH #### [facility] [address] [place] [address] Dr. Uriah NoriegapH (U)6.0 [pH]Normal5-9The [facility] HospitalComment on above: Performed By: #### DAYANA KEITH #### [facility] [address] [place] [address] Dr. Uriah NoriegaSPEC GRAVITY>=1.239Fgjgmrwz8.005-<=1.025The [facility] Comment on above:Performed By: #### DAYANA KEITH #### [facility] [address] [place] [address] Dr. Uriah Dang PROTEINNegativeNormalNEGATIVE/ TRACEThe [facility] Comment on above:Performed By: #### DAYANA KEITH #### [facility] [address] [place] [address] Dr. Uriah Pearce MICRO INDINDICATEDNormalThe [facility] HospitalComment on above: Performed By: #### DAYANA KEITH #### [facility] [address] [place] [address] Dr. Uriah Zaldivar Qn (U)0.2 {Anabelle'U}/dLNormal0.2 - 1.0The [facility] HospitalComment on above:Performed By: #### GWEN KEITHRO #### [facility] [address] [place] [address] Dr. Uriah López MICROSCOPIC ONLYon 17-78-5432XSEXYGZJUTOEVJywivfnjSWNK SEEN The [facility] HospitalComment on above:Performed By: #### GWEN KEITHRO #### [facility] [address] [address] [address] Uriah Santana identified Cx Nom (U)INDICATEDSelect Medical Cleveland Clinic Rehabilitation Hospital, BeachwoodCombronson battle creek hospital on above:Performed By: #### INNA UMICRO #### [facility] [address] [place] [address] Dr. Uriah Hutchins SEENNormalNONE SEENMercy Health St. [facility] on above:Performed By: #### INNA UMICRO #### [facility] [address] [place] [address] Dr. Uriah Kennedyystals LM Nom (Urine sed)NONE SEENNormalNONE SEENMercy Health St. [facility] on above:Performed By: #### INNA UMICRO #### [facility] [address] [place] [address] Dr. Kruse ChangEpithelial cells LM Ql (Urine sed)NONE SEENNormalNONE SEEN /RARE [facility] HospitalCombronson [facility] on above:Performed By: #### INNA UMICRO #### [facility] [address] [place] [address] Dr. Uriah WestCOUSTRACEAbnormalNONE SEENUniversity Hospitals Cleveland Medical CenterCombronson battle creek hospital on above:Performed By: #### INNA UMICRO #### [facility] [address] [place] [address] Dr. Uriah Moeller SEENAbnormal0-2[facility] CenterCombronson battle [facility] hospital on above: Performed By: #### INNA UMICRO #### [facility] [address] [place] [address] Dr. Uriah NoriegaWBC0-2AbnormalNONE [address] [facility] on above: Performed By: #### INNA UMICRO #### [facility] [address] [place] [address] Dr. Uriah NoriegaPathology Noteon 17-50-7716Fvxtncjfc Note [id number]#1.00CD:[address] [place], [place] [address]Outside Colonoscopyon 39-56-9624Mqzphkh Colonoscopy [id number]#1.00CD:127[facility] CampusLab Reportson 49-40-1047Emu Reports [id number]#1.00CD:127[facility] CampusProvider Letter FTMCon 21-58-5096Psycgfqx Letter [facility] [address], [address] [place] [address] Re: EREN ARCHIBALD Date of : 1965 Thank you for your referral of Eren Archibald who was seen on consultation on 10/12/2021, for colonoscopy. I have enclosed my consultation note for your review. I will be happy to follow Eren. Sincerely, Radha Frankel MD General SurgeryTrinity Health System East CampusConsent for Procedure/Surgeryon 76-99-9423Zilioej for Procedure/Surgery [id number]#1.00CD:127[facility] CampusAmbulatory Clinical Summaryon 94-40-2223Orhubbdwtu Clinical Summary {[id number]}CD:[id number] Health AdministrationProvider Letteron 98-06-1018Vlrppyfe LetterSaint Joseph Berea 2020September 23, 2021 EREN ARCHIBALD [address] [place] [address] ARCHIBALDEREN Ree 1965 Dear Eren_ , We have [...] to this matter. Sincerely, General Surgery/Digestive Health 419 126-1368NoVeterans Health AdministrationPhysician Referralon 09-13-2021 Physician [id number]#1.00CD:127Normal [facility] Vital Signs Date TimeVital SignValuePerforming ZlcwsqyxcWdhswbec62-62-9433 11:40-0500Body uwcnzg230.02 cmLisa Aichholz AGRICULTURE TECHNICIAN-C Work Phone: [phone])[address]11-10-2025 11:40-0500 Body mass index (BMI) [Ratio]27.8 kg/m2Lisa Aichholz AGRICULTURE TECHNICIAN-C Work Phone: [phone])8[address]11-10-2025 11:40-0500 Body mwfatuauawj21.8 [degF]Cade Aichholz AGRICULTURE TECHNICIAN-C Work Phone: [phone])[address]97 [address]11-10-2025 11:40-0500 Body pxkuwp11.21 kgLisa Aichholz AGRICULTURE TECHNICIAN-C Work Phone: [phone])7[address]97 [address]11-10-2025 11:40-0500 Diastolic blood iuwwiscv80 mm[Hg]Cade Aichholz AGRICULTURE TECHNICIAN-C Work Phone: [phone])[address]97 [address]11-10-2025 11:40-0500 Heart rate98 /minLisa Aichholz AGRICULTURE TECHNICIAN-C Work Phone: 1(655)49097 [address]11-10-2025 11:40-0500 Respiratory rate18 /minLisa Aichholz AGRICULTURE TECHNICIAN-C Work Phone: [phone] [place], [place] 1349011-10-2025 11:40-0500 SaO2% (BldA) [Mass fraction]96 %Cade Aichholz AGRICULTURE TECHNICIAN-C Work Phone: [phone] [place], [place] 1349011-10-2025 11:40-0500 Systolic blood rucmeoob768 mm[Hg]Cade Aichholz AGRICULTURE TECHNICIAN-C Work Phone: [phone])61197 [address]10-06-2025 10:54-0400 Body ddtjek017.9 cmAnthony Rusher DPM Work Phone: [phone] [place], [place] 8564110-06-2025 10:54-0400Body mass index (BMI) [Ratio]28.91 kg/e8Vbrpaqx Rusher DPM Work Phone: [phone] [place], [place] [address]64110-06-2025 10:54-0400Body oanpaf79.4 kg Christian Rusher DPM Work Phone: [phone] [place], [place] 8564107-02-2025 09:50-0400Body axccyl877.9 cmAnthony Rusher DPM Work Phone: [phone] [place], [place] 85[address]107-02-2025 09:50-0400Body mass index (BMI) [Ratio]28.91 kg/b2Zetifzu Rusher DPM Work Phone: [phone] [place], [place] [address]107-02-2025 09:50-0400Body myzfmp84.4 kg Christian Rusher DPM Work Phone: [phone] [place], [place] 8564105-21-2025 13:52-0400Body yavweo289.9 cmAnthony Rusher DPM Work Phone: [phone] [place], [place] 8564105-21-2025 13:52-0400Body mass index (BMI) [Ratio]28.91 kg/j6Qnagoag Rusher DPM Work Phone: [phone] [place], [place] 8564105-21-2025 13:52-0400Body bryddq52.4 kg Christian Rusher DPM Work Phone: [phone] [place], [place] 8564105-07-2025 13:28-0400Body altcba429.9 cmAnthony Rusher DPM Work Phone: [phone] [place], [place] 8564105-07-2025 13:28-0400Body mass index (BMI) [Ratio]28.91 kg/z6Irmxawx Rusher DPM Work Phone: [phone] [place], [place] 8564105-07-2025 13:28-0400Body kyeehz54.4 kg Christian Rusher DPM Work Phone: [phone] [place], [place] 8564104-02-2025 11:12-0400Body wxgeyl073.[address]04-02-2025 11:12-0400Body mass index (BMI) [Ratio] 28.91 kg/m2Pmh [address] [place], [place] 3934604-02-2025 11:12-0400Body wqyevm35.[address] [place], [place] 3934604-01-2025 14:09-0400Body mass index (BMI) [Ratio] 28.98 kg/m2Lisa Sloaneholz AGRICULTURE TECHNICIAN Work Phone: [facility] SystemLdjogcmucp29-40-8345 14:09-0400Body temperature 98.71 [degF]Cade Sloaneholz AGRICULTURE TECHNICIAN Work Phone: [facility] SystemKjewreydbn25-99-9301 14:09-0400Body fjozke78.58 kgLisa Sloaneholz AGRICULTURE TECHNICIAN Work Phone: [facility] SystemMbjvxdprvi72-51-9841 14:09-0400Diastolic blood mm[Hg]Cade Sloaneholz AGRICULTURE TECHNICIAN Work Phone: [facility] SystemTubtsvxqew68-86-1515 14:09-0400Heart rate79 /min Cade Sloaneholz AGRICULTURE TECHNICIAN Work Phone: [facility] SystemBbcildzdpm73-35-2749 14:09-0400Respiratory rate18 /minLisa Sloaneholz AGRICULTURE TECHNICIAN Work Phone: [facility] SystemQjxdfxuhlx53-18-4432 14:09-0213YlJ3% (BldA) [Mass fraction]99 %Cade Sloaneholz AGRICULTURE TECHNICIAN Work Phone: [facility] SystemFdpldqjmxy18-56-4181 14:09-0400Systolic blood tnifmvvj466 mm[Hg]Cade Sloaneholz AGRICULTURE TECHNICIAN Work Phone: [facility] SystemUridovzuzm45-74-7894 14:30-0500Body mass index (BMI) [Ratio]28.61 kg/m2Lisa Arelihholz AGRICULTURE TECHNICIAN Work Phone: [facility] SystemByprgpccch57-60-7737 14:30-0500Body temperature 98.8 [degF]Cade Sloaneholz AGRICULTURE TECHNICIAN Work Phone: [facility] SystemAuifjrjjno59-81-3467 14:30-0500Body acxhfp94.67 kgCade Deutsch AGRICULTURE TECHNICIAN Work Phone: [facility] SystemQzhdnviapz28-89-5054 14:30-0500Diastolic blood mkxfvswe64 mm[Hg]Cade Deutsch AGRICULTURE TECHNICIAN Work Phone: [facility] SystemDngbpfzqzd57-86-5416 14:30-0500Heart rate96 /min Cade Deutsch AGRICULTURE TECHNICIAN Work Phone: [facility] SystemUffsgngypp64-57-6973 14:30-0500Respiratory rate19 /minCade Deutsch AGRICULTURE TECHNICIAN Work Phone: [facility] SystemGqtyzsdenp72-64-5332 14:30-7020IoU4% (BldA) [Mass fraction]96 %Cade Deutsch AGRICULTURE TECHNICIAN Work Phone: [facility] SystemTctbluddwi46-40-7057 14:30-0500Systolic blood mpvohjcr064 mm[Hg]Cade Deutsch AGRICULTURE TECHNICIAN Work Phone: [facility] SystemVvssvtuxva72-31-7760 10:44-0400Body .94 cm[facility] 10:44-0400Body mass index (BMI) [Ratio]28.3 kg/o8RmlappabgAvita Health System [facility] Hospital06-16-2024 10:44-0400Body fkqzoanoruw30 [degF][facility]06-16-2024 10:44-0400Body orsxgf02.03 kgAv[facility]06-16-2024 10:44-0400Diastolic blood mm[Hg][facility]06-16-2024 10:44-0400 Heart rate91 /[facility]06-16-2024 10:44-0400 Respiratory rate18 /[facility]06-16-2024 10:44-0400 SaO2% (BldA) [Mass fraction]98 %[facility]06-16-2024 10:44-0400Systolic blood hajymjdo574 mm[Hg][facility] Encounters Encounter DateEncounter TypeCare ProviderFacilityStart: 09-28-2025 End: 15-82-6860fzfbcprfmvEebt Amanuel La Nena AGRICULTURE TECHNICIAN-C Work Phone: -[facility] ClydeStart: 09-28-2025 End: 18-68-5360Sankhxp encounter procedureLi Amanuel Deutsch AGRICULTURE TECHNICIAN-C-[facility] Work Phone: Start: 83-18-5294Phygbtw encounter statusLi Arelihaipaola AGRICULTURE TECHNICIAN-C Work Phone: [facility] Hospitaltart: 08-24-2025 End: 75-38-2181Puwlpu flowsheetAnthony S Rusher DPM Work Phone: [facility]iatryStart: 08-24-2025 End: 45-91-7874Fjyxfm flowsheetAnthony S Rusher DPM Work Phone: [facility] PodiatryStart: 08-24-2025 End: 40-77-6275Bixjqa outpatient visit 15 minutesAnthony S Rusher DPM Work Phone: [facility] PodiatryComment on above:S/P foot surgery (Primary Dx)Start: 08-24-2025 End: 36-50-3995hakaimateuRBTJNXA S RUSHERNot AvailableStart: 05-20-2025 End: 53-90-6420Unkqbj flowsheetAnthony S Rusher DPM Work Phone: [facility] PODIATRYStart: 05-20-2025 End: 20-36-3725Fzhddh flowsheetAnthony S Rusher DPM Work Phone: noms PODIATRYStart: 05-20-2025 End: 87-73-1051Phlrcg follow up visit related to original pxAnthony S Rusher DPM Work Phone: noms PODIATRYComment on above:S/P foot surgery (Primary Dx); Left foot painStart: 05-20-2025 End: 80-85-1657twucogkdzcTTRZDGS S RUSHERNot AvailableStart: 04-08-2025 End: 39-63-9622dhazkjeqgqGQKVFAX S RUSHERNot AvailableStart: 04-08-2025 End: 65-93-9458Csycww flowsheetAnthony S Rusher DPM Work Phone: [facility] PODIATRYStart: 04-08-2025 End: 94-82-3403Fkilvt flowsheetAnthony S Rusher DPM Work Phone: [facility] PODIATRYStart: 04-08-2025 End: 86-71-4902Brxcdq follow up visit related to original pxAnthony S Rusher DPM Work Phone: NOMS PODIATRYComment on above:S/P foot surgery (Primary Dx); Left foot painStart: 04-08-2025 End: 29-42-9705hlnovtgnwdOJWBCGI S RUSHERNot AvailableStart: 03-25-2025 End: 55-55-1851Htcuju follow up visit related to original pxAnthony S Rusher DPM Work Phone: N[facility]S PODIATRYComment on above:S/P foot surgery (Primary Dx); Left foot painStart: 03-25-2025 End: 58-84-8786iclbwarxzaQLPHANA S RUSHERNot AvailableStart: 03-11-2025 End: 45-60-4887Mrrexw flowsheetAnthony S Rusher DPM Work Phone: [facility] PODIATRYStart: 03-11-2025 End: 51-39-3564Jashfy flowsheetAnthony S Rusher DPM Work Phone: NOKL PODIATRYStart: 03-11-2025 End: 65-67-1091Ujtsvo follow up visit related to original pxAnthony S Rusher DPM Work Phone: NOMS PODIATRYComment on above:S/P foot surgery (Primary Dx); Left foot pain; Instability of left ankle joint; Difficulty walkingStart: 03-11-2025 End: 77-70-4155dkaartlsddWWJNLDL S RUSHERNot AvailableStart: 03-10-2025 End: 27-67-7697Enmejotkh encounterAnthtanja Richardson DPM Work Phone: noms PODIATRYComment on above:Advice Only (FMLA/disability paperwork)Start: 02-26-2025 End: 92-82-3818Ptxwnxrrjk and management of inpatientANTHTANJA [facility] Hospitaltart: 02-24-2025 End: 00-41-8527Znwjyldlx encounterAnthtanja Richardson DPM Work Phone: noms PODIATRYComment on above:Advice Only (FMLA for spouse)Start: 02-23-2025 End: 01-33-3655Ggcaleniz encounterAnthtanja Richardson DPM Work Phone: noms PODIATRYStart: 02-21-2025 End: 28-09-7442Eedqyt OnlyLisa Purnimaz AGRICULTURE TECHNICIAN Work Phone: noms CW FMComment on above:Encounter for adult wellness visit (Primary Dx)Start: 02-21-2025 End: 40-84-2465Hrgzlub encounter statusLisa Arelihholz AGRICULTURE TECHNICIAN Work Phone: [facility] Work Phone: Start: 02-18-2025 End: 40-84-5617Ynipygfb Result EncounterLisa Aichholz AGRICULTURE TECHNICIAN Work Phone: noms External Department UnsolicitedStart: 02-18-2025 End: 47-75-5686Mnhorgyd Result EncounterLisa Aichholz AGRICULTURE TECHNICIAN Work Phone: [facility] External Department UnsolicitedStart: 02-18-2025 Preoperative stateLisa Aichholz AGRICULTURE TECHNICIAN Work Phone: noms HealthcareStart: 20-37-4847Inacyrnyc for general adult medical examination without abnormal findingsSumner Regional Medical Center HospitalStart: 80-78-3478Prgquuvos for other preprocedural examination [facility] Hospitaltart: 02-18-2025 End: 99-03-9190Wfnxwvo encounter procedurePm Pre-Admission Testing [address] [place] [address] - Pre AdmitComment on above:Preop examination (Primary Dx)Start: 02-18-2025 End: 76-69-0428Saljhxighodbc examination done[address] Streettart: 02-18-2025 End: 37-43-5029vyzsldbbbyGTEHJWF S RUSHERProMedica Mendocino Coast District Hospitaltart: 02-18-2025 End: 05-70-7922Fbllvq outpatient visit 25 minutesAnthtanja Richardson DPM Work Phone: noms PODIATRYComment on above:Hallux valgus of left foot (Primary Dx); Deformity of metatarsal bone of left foot; Acquired deformity of left toe; Hammer toe of left footStart: 02-18-2025 End: 36-78-9670hacfzvbtsnMUHBBRU S RUSHERNot AvailableStart: 02-17-2025 End: 42-79-7202Sllavs flowsDanielle Deutsch AGRICULTURE TECHNICIAN Work Phone: noms CWM FMStart: 02-17-2025 End: 02-54-3063Smetkw flowsDanielle Deutsch AGRICULTURE TECHNICIAN Work Phone: noms CW FMStart: 02-17-2025 End: 16-14-3827Btjhjrx encounter statusCade Deutsch AGRICULTURE TECHNICIAN Work Phone: noms HealthcareStart: 02-17-2025 End: 02-00-3324Dobzkyuv preventive med est patient 40-64yrsLisa Deutsch AGRICULTURE TECHNICIAN Work Phone: [facility] CWM FMComment on above:Encounter for adult wellness visit (Primary Dx); Gastroesophageal reflux disease, unspecified whether esophagitis present; Overweight with body mass index (BMI) 25.0-29.9; Mixed hyperlipidemia (CMS/HCC); Chronic pain of left kneeStart: 02-17-2025 End: 65-57-6946uivusucbcbUZHP AICHHOLZNot AvailableStart: 02-04-2025 End: 12-79-4330uvjuwtqyyfIOCEDWD S RUSHERNot AvailableStart: 02-04-2025 End: 66-62-0648xoxiowqyqqHJPSVTC S BJORNHERNot AvailableStart: 01-12-2025 End: 77-08-6385Fdzxrrlzn Result EncounterLisa Sloaneholz AGRICULTURE TECHNICIAN Work Phone: noms External Department UnsolicitedStart: 01-12-2025 End: 61-58-8182Doibkvpfm Result EncounterLisa Aichholz AGRICULTURE TECHNICIAN Work Phone: n[facility] External Department UnsolicitedStart: 01-06-2025 End: 52-63-2430Eipfuw outpatient visit 15 minutesLisa Sloaneholz AGRICULTURE TECHNICIAN Work Phone: [facility] CWM FMComment on above:Chronic pain of left knee (Primary Dx); Overweight with body mass index (BMI) 25.0-29.9Start: 01-06-2025 End: 22-03-6003dzyijprppsRDYT AICHHOLZNot AvailableStart: 01-06-2025 End: 59-09-1667Ktxveu flowsheetLisa Aichholz AGRICULTURE TECHNICIAN Work Phone: noms CWM FMStart: 01-06-2025 End: 25-13-9514Hjnymg flowsheetLisa Aichholz AGRICULTURE TECHNICIAN Work Phone: noms CWM FMStart: 11-17-2024 End: 48-37-8115Mcurzogfa Result EncounterLisa Aichholz AGRICULTURE TECHNICIAN Work Phone: n[facility] External Department UnsolicitedStart: 11-17-2024 End: 64-04-7685Mtpbhaprh Result EncounterLisa Aichholz AGRICULTURE TECHNICIAN Work Phone: noms External Department UnsolicitedStart: 08-01-2024 End: 96-76-3866Gkilfsuip Result EncounterGeneric External Data ProviderNOMS External Department UnsolicitedStart: 08-01-2024 End: 10-19-8911Ngdtthknr Result EncounterGeneric External Data ProviderNOMS External Department UnsolicitedStart: 05-04-2024 End: 33-83-3908fjdmtvpgzfQbxllawnsOhioHealth [facility] Center Work Phone: Start: 05-04-2024 End: 39-52-0492Luyfgcf encounter procedureEcu Health [facility] Work Phone: Start: 11-15-2023 End: 97-59-1084Xwedxvzff Result EncounterLisa Aichholz AGRICULTURE TECHNICIAN Work Phone: noms External Department UnsolicitedStart: 11-15-2023 End: 28-75-0895Anvckdiir Result EncounterLisa Aichholz AGRICULTURE TECHNICIAN Work Phone: n[facility] External Department UnsolicitedStart: 01-03-2023 End: 73-38-9178mibpsdbxtwEF SAMMI KARAZUL .Facility:O6Rjfva: 11-13-2022 End: 05-89-3036esxnununtkXER CADE AICHHOLZFacility:Z9Nplhb: 08-26-2022 End: 47-57-9773xjqxhjbujtKGS CADE AICHHOLZFacility:G2Yxhwr: 08-15-2022 End: 62-23-7259hwktkxvfxhIYT CADE AICHHOLZFacility:N9Jezju: 08-07-2022 End: 59-04-5882bgsgswjhcvVXZ CADE AICHHOLZFacility:U3Gytqc: 07-12-2022 End: 93-46-2840hihkfykjutNVY CADE AICHHOLZFacility:X0Bqxei: 07-11-2022 End: 58-39-1178dsmnfishorMQQ CADE AICHHOLZFacility:Z6Zhsqt: 07-10-2022 End: 02-46-7069kvyyujjpixRNP CADE AICHHOLZFacility:H1 Procedures DateProcedureProcedure DetailPerforming ClinicianStart: 59-53-6086Pvknc foot complete minimum 3 viewsAnthony S Rusher DPM Work Phone: Start: 09-77-4668Fdiht foot complete minimum 3 views Christian S Rusher DPM Work Phone: Start: 14-94-7726Acqjg foot complete minimum 3 views Christian Richardson DPM Work Phone: Start: 44-22-4540Mmnuw foot complete minimum 3 views Christian Richardson DPM Work Phone: Start: 58-48-5058Guqqa panelCade Deutsch AGRICULTURE TECHNICIAN Work Phone: Start: 97-32-3059Btcoksxlfc examination knee 1/2 views Cade Singletonreva AGRICULTURE TECHNICIAN Work Phone: Start: 97-49-5947NN TOMOSYNTHESIS SCREENING Carisa Deutsch AGRICULTURE TECHNICIAN Work Phone: Start: 48-65-2708GgnpbdailkoLlgp Aichholz AGRICULTURE TECHNICIAN Work Phone: Start: 89-63-4406VZ FOOT LT MIN 3VGeneric External Data ProviderStart: 76-59-4409PJ TOMOSYNTHESIS SCREENING Carisa Deutsch AGRICULTURE TECHNICIAN Work Phone: Start: 96-86-6609LlfdjtskqckTdts Aichholz AGRICULTURE TECHNICIAN Work Phone: Plan of Treatment DateCare ActivityDetailAuthorStart: 59-66-1379HAaC,Tdap and Td Vaccines (2 - Td or Tdap)DTaP,Tdap and Td Vaccines (2 - Td or Tdap)[facility] SystemStart: 79-79-7107Grpafpbyb for malignant neoplasm of cervixNOMS HealthcareStart: 33-12-6990Xdtjyxixh for malignant neoplasm of colonNOMS HealthcareStart: 85-84-8408Brfcw BMI ScreeningAdult BMI ScreeningProMedica Health SystemStart: 34-43-0192Uospmoy ScreeningTobacco ScreeningProMedica Memorial Hospital SystemStart: 03-95-7426Avpegsnml for malignant neoplasm of breastMammogramNOMS Healthcare Start: 08-24-2025 End: 77-88-6349Idautje encounter psezqgdcv49/06/2025 11:00 AM EDT Office Visit [facility] [address] [place] [address] Christian Richardson DPM [address] [place], [place] [id number] ArrivedMICHELEMS Oropezat PodiatryComment on above:ArrivedStart: 14-19-2748XewzizemfClearSky Rehabilitation Hospital [facility]ondaleca [facility] SystemStart: 05-20-2025 End: 62-24-8491Qozcqmf encounter procedureNOMS PODIATRYComment on above: ArrivedStart: 04-08-2025 End: 13-47-6474Ajmfyjm encounter procedureNOMS PODIATRYComment on above: ArrivedStart: 03-25-2025 End: 69-88-6048Mvgzhnv encounter qaeeejutl35/07/2025 1:45 PM EDT Office Visit [facility] [address] [place] [id number] Christian Richardson DPM [address] [place] [address] [facility] PODIATRYStart: 03-11-2025 End: 28-95-6811Swvfrmq encounter procedureNOMS PODIATRYComment on above: ArrivedStart: 02-26-2025 End: 83-40-2098Yjytcywhg to same day surgery yhdaww4602/26/2025 7:30 AM EDT - 02/26/2025 9:30 AM EDT Surgery [facility] Surgery [address] [place] [id number] Christian Richardson DPM [address] [place] [address] ARTHRODESIS TOE [64423 (CPT )][facility] - SurgeryComment on above: ARTHRODESIS TOE [07262 (CPT )]Start: 02-26-2025 End: 40-70-3236Njjtzqhbncp great toe metatarsophalangeal jointARTHRODESIS TOE left foot hallux valgus, 2nd metatarsal deformity, acquired deformity, 2nd digit hammer toe 02/26/2025 7:30 AM [facility]Start: 02-26-2025 End: 86-35-6314Tlvajhuaxj hammertoeREPAIR HAMMERTOE left foot hallux valgus, 2nd metatarsal deformity, acquired deformity, 2nd digit hammer toe 02/26/2025 7:30 AM [facility]ERYStart: 02-26-2025 End: 54-61-8624Azunbz w/wo lngth shrt/corrj metar xcp 1st eaOSTEOTOMY METATARSAL left foot hallux valgus, 2nd metatarsal deformity, acquired deformity, 2nd digit hammer toe 02/26/2025 7:30 AM EDTFROB[facility] SURGERYStart: 02-26-2025 End: 06-36-6883Esrnuz angular dfrm toe soft tiss px onlyEXCISION SOFT TISSUE FOOT left foot hallux valgus, 2nd metatarsal deformity, acquired deformity, 2nd digit hammer toe 02/26/2025 7:30 AM EDNOR[facility]BA[facility] SURGERYStart: 02-26-2025 Subsequent hospital visit by foquyaosm66/10/2025 7:30 AM EDT Hospital Encounter [facility] - Surgery [address] [place] [address] Christian Richardson, DPM [address] [place] [address] [facility] Start: 02-21-2025 End: 38-46-6005Qmoxn metabolic 1998 panel - Serum or PlasmaBasic metabolic panel Lab Routine Encounter for adult wellness visit Expected: 02/21/2025 (Approxima te), Expires: 02/21/2026[facility] HealthcareComment on above:Expected: 02/21/2025 (Approximate), Expires: 02/21/2026Start: 02-21-2025 End: 56-88-8899CVP W Auto Differential panel - BloodCBC and differential Lab Routine Encounter for adult wellness visit Expected: 02/21/2025 (Approximate), Expires: 02/21/2026[facility] Work Phone: Comment on above:Expected: 02/21/2025 (Approximate), Expires: 02/21/2026Start: 02-18-2025 End: 29-36-6200Faiiaqi encounter xdbgbplwu05/02/2025 9:45 AM EDT Office Visit [facility] [address] [place] [phone] Christian Richardson, DPM [address] [place], [place] [id number] [facility]: 02-17-2025 End: 88-44-9785Cybofyh function 2000 panel - Serum or PlasmaHepatic function panel Lab Routine Encounter for adult wellness visit Expected: 02/17/2025 (Approximate), Expires: 02/17/2026[facility] Work Phone: Comment on above:Expected: 02/17/2025 (Approximate), Expires: 02/17/2026Start: 02-17-2025 End: 26-64-7188Ayvse 1996 panel - Serum or PlasmaLipid panel Lab Routine Encounter for adult wellness visit Expected: 02/17/2025 (Approximate), Expires: 02/17/2026[facility] HealthcareComment on above:Expected: 02/17/2025 (Approximate), Expires: 02/17/2026Start: 02-17-2025 End: 55-55-7811Jxjwlcb encounter procedureNOMS CWM FMComment on above:Arrived Start: 01-06-2025 End: 47-66-3539Xvktuig encounter ufebkdzpn04/18/2025 2:20 PM EST Office Visit [facility] [address] [place] [address] Cade Deutsch NP [address] [place] [phone] Overweight with body mass index (BMI) 25.0-29.9 (Primary Dx) [facility] FMComment on above:Overweight with body mass index (BMI) 25.0-29.9 (Primary Dx)Start: 01-06-2025 End: 39-14-3117GY Knee - left 1 or 2 ViewsXR knee 1 or 2 views left Imaging Routine Chronic pain of left knee Expected: 01/06/2025 (Approximate), Expires: 01/06/2026[facility] Work Phone: Comment on above:Expected: 01/06/2025 (Approximate), Expires: 01/06/2026Start: 71-27-8098JQNSY-19 Vaccine ( season)COVID- 19 Vaccine ( season)[facility] SystemStart: 09-26-2022 Administration of varicella zoster vaccineZoster (Shingles) Vaccine (2 of 2) [facility] SystemStart: 93-86-9901Kdobjpdwe for malignant neoplasm of cervixPap [facility] HospitalStart: 17-70-8039Kkmew BMI Follow Up PlanAdult BMI Follow Up PlanCrystal Clinic Orthopedic Center SystemStart: 73-03-5295Vcpgcfzioc Screening Depression ScreeningCrystal Clinic Orthopedic Center SystemStart: 63-77-1034Nndrpdzli for malignant neoplasm of colonPR[facility] HealthcareDXA Skeletal system.axial Views for bone densityAvita Health System Ontario HospitalMG Breast - bilateral Screening [facility] Immunizations Immunization DateImmunizationNotesCare YigrghcnHhxemcrc32-06-2625klslpejgf virus vaccine, unspecified formulationChristian YEHM Work Phone: [facility] SystemCdajuiikco96-03-9481kxshnzcmh, seasonal, injectable, preservative freeLisa Aichholz AGRICULTURE TECHNICIAN Work Phone: [facility] SystemPkakqszays84-77-1229zeakjeoty virus vaccine, unspecified formulation[address]09-15-2023influenza, injectable, quadrivalent, preservative freeLisa Aichholz AGRICULTURE TECHNICIAN Work Phone: [facility] SystemRqlskgpiew79-08-0295tkdjgw vaccine recombinant Cade Aichholz AGRICULTURE TECHNICIAN Work Phone: [facility] SystemAviubimtjm80-56-6552qbfhej vaccine, unspecified formulation[address]09-17-2021influenza, injectable, quadrivalent, preservative freeLisa Aichholz AGRICULTURE TECHNICIAN Work Phone: [facility] SystemCgecbcwwid30-82-9579ypimqbnhn, injectable, quadrivalent, preservative freeLisa Aichholz AGRICULTURE TECHNICIAN Work Phone: noCarondelet HealthUiwhmnmmcz95-89-2520Miaihtekz, injectable, Madin [place] Canine Kidney, preservative free, quadrivalentLisa Aichholz AGRICULTURE TECHNICIAN Work Phone: [facility] SystemSrwbajfulg96-19-4172abihmoe toxoid, reduced diphtheria toxoid, and acellular pertussis vaccine, adsorbedLisa Aichholz AGRICULTURE TECHNICIAN Work Phone: [facility] SystemYqmcvvgqtb70-13-8265mqxjtefas, seasonal, injectable, preservative freeLisa Aichholz AGRICULTURE TECHNICIAN Work Phone: [facility] Payers DatePayer CategoryPayerPolicy [id number] Health InsuranceHEALTHSCOPE [id number] Care Other (unspecified)[employer] BENEFITS/[place] .[id number] 2.16.840.1.884442.3.57[id number] 2.16.840.1.047657.3.57[id number] 2.16.840.1.155640.3.57[id number] 2.16.840.1.629773.3.57[id number] 2.16.840.1.271568.3.57[id number] 2.16.840.1.063878.3.579.[id number] 2.16.840.1.753881.3.579.[id number] 2.16.840.1.271560.3.579.[id number] 2.16.840.1.146973.3.57[id number] 2.16.840.1.510430.3.579.[id number] 2.16.840.1.249134.3.57[id number] 2.16.840.1.913999.3.57[id number] 2.16.840.1.970619.3.57[id number] 2.16.840.1.278119.3.57[id number] 2.16.840.1.688860.3.57[id number] 2.16.840.1.107320.3.579.2.146519-42-9979Igbqnhk7703988 2.16.840.1.079083.3.57[id number] 2.16.840.1.219949.3.579.[id number] 2..0.1.068822.3.579.2.203257-38-4035Nmacclg8619004 2.0.1.380639.3.57[id number] 2.0.1.012656.3.579.[id number] 2.0.1.745315.3.579.[id number] 2.0.1.057900.3.579.2.458604-26-7465Zxgxnpi9555559 2.0.1.648596.3.579.2.461769-63-5710Rclifqj1108594 2..1.764968.3.579.[id number] 2.0.1.029835.3.579.2.022681-69-1623Wqknpnt5831318986-47-7698Fjhmigs [id number] Social History DateTypeDetailFacilityTobacco smoking status NHISUnknown if ever smokedSouthwest General Health Center Work Phone: Start: 77-22-7020Der Assigned At BirthFeToledo Hospitaltart: 05-04-2024 End: 17-99-0493Drmsrhb smoking status NHISNever smoked tobacco (finding) [facility]: 05-14-2024 End: 33-33-1573Yhnymah use and exposureSmokeless tobacco non-userN[facility] Healthcare Start: 05-14-2024 End: 36-86-5024Kqdpgdjnu beverage intakeLifetime non-drinker (finding)[facility] HealthcareStart: 05-14-2024 End: 23-17-5368Lxeexpz of Social functionNOMS HealthcareStart: 05-14-2024 End: 96-27-7023K7424 Health LiteracyNOCO HealthcareStart: 38-79-6547Okr often do you need to have someone help you when you read instructions, pamphlets, or other written material from your doctor or pharmacy [SILS]SometimesNOMS HealthcareDo you belong to any clubs or organizations such as latter-day groups, unions, fraternal or athletic groups, or school groups?NoNOMS HealthcareAre you now , , , , never or living with a partner?MarriedNOMS HealthcareHow often to you have a drink containing alcohol? Monthly or lessNOMS HealthcareHow many standard drinks containing alcohol do you have on a typical day?1 or 2NOMS HealthcareHow often do you have 6 or more drinks on 1 occasion?NeverNOMS HealthcareHow hard is it for you to pay for the very basics like food, housing, medical care, and heatingNot very hardNOMS HealthcareDo you feel stress - tense, restless, nervous, or anxious, or unable to sleep at night because yourmind is troubled all the time - these days [OSQ] Not at allNOMS Healthcare(I/We) worried whether (my/our) food would run out before (I/we) got money to buy more.Never trueNOMS HealthcareStart: 1966 Sex assigned at birthNot on fileNOMS HealthcareStart: 17-80-3630Mwrydteac beverage intakeCurrent drinker of alcohol (finding)[facility] SystemStart: 86-93-8536Zcjdhnw CommentrareProMedica Health SystemStart: 77-63-6854DtwHbtsyz (finding)[facility] SystemHow often do you need to have someone help you when you read instructions, pamphlets, or other written material from your doctor or pharmacy [SILS]SometimesNOCO HealthcareTobacco smoking status NHIS Tobacco smoking consumption unknownFre[facility] Functional Status KwqiOvwinxguhoIzwkpoOoxemivq84-76-4422Lqnbr score [AUDIT-C]1 01/03/2025 3:43 PM EST Mychart, GenericNOMS Knmcnsraaa52-98-5829Wcb often do you have a drink containing alcohol?Monthly or less 01/03/2025 3:43 PM EST Mychart, Generic Monthly or lessNOMS Wlreqoptvl59-42-8941Dsn many standard drinks containing alcohol do you have on a typical day?1 or 2 01/03/2025 3:43 PM EST Mychart, Generic 1 or 2NOMS Ajrqbuwppk41-87-7357Nmx often do you have 6 or more drinks on 1 occasion?Never 01/03/2025 3:43 PM EST Mychart, Generic NeverFreeman Health System 41-47-8087Denayhj Health Questionnaire 2 item (PHQ-2) [Reported][facility] Clinical Notes 10-12-2021 to 08-24-2025 Note Date & SnueVcnbYbseehli93-44-1201 History of Present illness Narrative* Christian Richardson, DP - 08/24/2025 11:00 AM EDT Images from the original note were not included. Subjective Patient ID: Eren Archibald is a 59 y.o. female who presents for Follow-up (Established patient presents today for 3 month post-op visit. DOS: 02/26/25). HPI Date of surgery 02/26/2025: 1st MTP arthrodesis, 2nd metatarsal osteotomy, PIPJ arthrodesis 2nd toe, flexor tendon transfer 2nd toe, left lower extremity Patient presents to clinic postoperatively. Overall doing very well. She states it if she walks a long ways about 1 or 2 miles she starts to have some soreness of the foot but otherwise she has no pain. Review of Systems Constitutional: Negative for activity change and appetite change. Respiratory: Negative for chest tightness and shortness of breath. Cardiovascular: Negative for chest pain. Musculoskeletal: Negative for arthralgias and gait problem. Skin: Negative for color change and wound. Neurological: Negative for weakness and numbness. Psychiatric/Behavioral: Negative for agitation and behavioral problems. Hematological: Does not bruise/bleed easily. Endocrine: Negative for cold intolerance and heat intolerance. Allergic/Immunologic: Negative for immunocompromised state. Past medical History Past Medical History: Diagnosis Date Arthritis 07/2024 Deaf Patient relates typically communicates through a cell phone nina Medications No current outpatient medications on file. Allergies Bacitracin Past Surgical History History reviewed. No pertinent surgical history. Family History Family History Problem Relation Name Age of Onset Diabetes Mother Teresa Interiano Hypertension Mother Teresa Interiano Cancer Father Frankie Interiano Objective Physical Exam Constitutional: Comments: Unaccompanied. Presents to clinic ambulating unassisted with tennis shoes. HENT: Head: Normocephalic and atraumatic. Cardiovascular: Pulses: Normal pulses. Pulmonary: Effort: Pulmonary effort is normal. No respiratory distress. Abdominal: Palpations: There is no mass. Musculoskeletal: Cervical back: No rigidity. Comments: Left foot: Incisions are well healed. No significant edema. No ecchymosis today. NegativeHomans test. No tenderness with range of motion of the calf. Muscle strength testing deferred. Hallux and 2nd digit rectus at this time. No tenderness with stressing of the 1st MTP. No tenderness with palpation of the 1st MTP. Skin: Capillary Refill: Capillary refill takes less than 2 seconds. Findings: No lesion or rash. Neurological: Mental Status: She is alert. Comments: No loss of protective sensation, gross sensation intact. Psychiatric: Mood and Affect: Mood normal. Behavior: Behavior normal. XR foot 3+ views left Imaging Result: AP, medial oblique, lateral views are weight-bearing. Apparent fusion of the 1st MTP. Implants intact without lucency or back out. Hardware in the 2nd metatarsal and 2nd toe are also intact without lucency or back out. Metatarsus adductus present. Assessment/Plan ICD-10-CM 1. S/P foot surgery Z98.890 XR foot 3+ views left Patient examined and evaluated. Stratus utilized for communication. Three radiographs of the left foot taken in office and I discussed my findings. Overall she is doing very well. She has returned towork. Overall she is able to function very well with no pain. Some of the longer walks cause some soreness of the left foot and some of this could be improved given further time out from surgery. At this time she has no functional deficits on a daily basis in no pain on a daily basis. For now I will see her back as needed. This note was created with the assistance of a speech recognition program. While intending to generate a timely document that accurately reflects the content of the visit, no guarantee can be provided that every grammatical or spelling mistake has been or will be identified or corrected. Thank you for your understanding. Christian Richardson DPM documented in this encounterFreeman Health [id number] History of Present illness Narrative* Christian Richardson DPM - 05/20/2025 10:00 AM EDT Images from the original note were not included. Subjective Patient ID: Eren Archibald is a 59 y.o. female who presents for 3 month Post Op ( Eren Archibald is a59 y.o. female who presents for 3 month Post Op.Date of surgery 02/26/2025. Sign Language Interpretation Stratus used. ). HPI Date of surgery 02/26/2025: 1st MTP arthrodesis, 2nd metatarsal osteotomy, PIPJ arthrodesis 2nd toe, flexor tendon transfer 2nd toe, left lower extremity Patient presents to clinic postoperatively. Overall doing very well. She notes some swelling of thefoot but otherwise she has no issues. Review of Systems Constitutional: Negative for activity change and appetite change. Respiratory: Negative for chest tightness and shortness of breath. Cardiovascular: Negative for chest pain. Musculoskeletal: Positive for arthralgias and gait problem. Skin: Negative for color change and wound. Neurological: Negative for weakness and numbness. Psychiatric/Behavioral: Negative for agitation and behavioral problems. Hematological: Does not bruise/bleed easily. Endocrine: Negative for cold intolerance and heat intolerance. Allergic/Immunologic: Negative for immunocompromised state. Past medical History Past Medical History: Diagnosis Date Deaf Patient relates typically communicates through a cell phone nina Medications No current outpatient medications on file. Allergies Bacitracin Past Surgical History History reviewed. No pertinent surgical history. Family History No family history on file. Objective Physical Exam Constitutional: Comments: Accompanied by her . Presents to clinic ambulating unassisted with tennis shoes. HENT: Head: Normocephalic and atraumatic. Cardiovascular: Pulses: Normal pulses. Pulmonary: Effort: Pulmonary effort is normal. No respiratory distress. Abdominal: Palpations: There is no mass. Musculoskeletal: Cervical back: No rigidity. Comments: Left foot: Incisions are well healed. No significant edema. No ecchymosis today. NegativeHomans test. No tenderness with range of motion of the calf. Muscle strength testing deferred. Hallux and 2nd digit rectus at this time. No tenderness with stressing of the 1st MTP. No tenderness with palpation of the 1st MTP. Skin: Capillary Refill: Capillary refill takes less than 2 seconds. Findings: No lesion or rash. Neurological: Mental Status: She is alert. Comments: No loss of protective sensation, gross sensation intact. Psychiatric: Mood and Affect: Mood normal. Behavior: Behavior normal. XR foot 3+ views left Imaging Result: AP, medial oblique, lateral views are weight-bearing. Orthopedic implants in excellent position without lucency or back out. Appears to be complete consolidation of the 1st MTP. Still significant splaying between the 1st, 2nd and 3rd digits. Second MTP remains rectus. PIPJ joint well approximated with implants intact. Appears to be signs of consolidation across the PIPJ joint. Assessment/Plan ICD-10-CM 1. S/P foot surgery Z98.890 XR foot 3+ views left 2. Left foot pain M79.672 XR foot 3+ views left Patient examined and evaluated. Stratus utilized for communication. Three radiographs of the left foot taken in office and I discussed my findings. Overall she is doing very well. She is scheduled toreturn to work 05/29/2025. She can increase activity as tolerated. I will see her back in 3 months for a six-month postop check. Radiographs only necessary at that time if she is having issues. This note was created with the assistance of a speech recognition program. While intending to generate a timely document that accurately reflects the content of the visit, no guarantee can be provided that every grammatical or spelling mistake has been or will be identified or corrected. Thank you for your understanding. Christian Richardson DPM documented in this encounterFreeman Health [id number] History of Present illness Narrative* Christian Richardson, DPM - 04/08/2025 1:45 PM EDT Images from the original note were not included. Subjective Patient ID: Eren Archibald is a 59 y.o. female who presents for No chief complaint on file.. HPI Date of surgery 02/26/2025: 1st MTP arthrodesis, 2nd metatarsal osteotomy, PIPJ arthrodesis 2nd toe, flexor tendon transfer 2nd toe, left lower extremity Patient presents to clinic postoperatively. Review of Systems Constitutional: Negative for activity change and appetite change. Respiratory: Negative for chest tightness and shortness of breath. Cardiovascular: Negative for chest pain. Musculoskeletal: Positive for arthralgias and gait problem. Skin: Negative for color change and wound. Neurological: Negative for weakness and numbness. Psychiatric/Behavioral: Negative for agitation and behavioral problems. Hematological: Does not bruise/bleed easily. Endocrine: Negative for cold intolerance and heat intolerance. Allergic/Immunologic: Negative for immunocompromised state. Past medical History Past Medical History: Diagnosis Date Deaf Patient relates typically communicates through a cell phone nina Medications No current outpatient medications on file. Allergies Bacitracin Past Surgical History No past surgical history on file. Family History No family history on file. Objective Physical Exam Constitutional: Comments: Accompanied by her . Presents to clinic ambulating unassisted with a fracture booton the left foot. HENT: Head: Normocephalic and atraumatic. Cardiovascular: Pulses: Normal pulses. Pulmonary: Effort: Pulmonary effort is normal. No respiratory distress. Abdominal: Palpations: There is no mass. Musculoskeletal: Cervical back: No rigidity. Comments: Left foot: Incisions are well coapted without drainage or cellulitis. Edema to the forefoot has improved. Negative Homans test. No tenderness with range of motion of the calf. Muscle strength testing deferred. Hallux and 2nd digit rectus at this time. No tenderness with stressing of the 1st MTP. No tenderness with palpation of the 1st MTP. Skin: Capillary Refill: Capillary refill takes less than 2 seconds. Findings: No lesion or rash. Neurological: Mental Status: She is alert. Comments: No loss of protective sensation, gross sensation intact. Psychiatric: Mood and Affect: Mood normal. Behavior: Behavior normal. XR foot 3+ views left Imaging Result: AP, medial oblique, lateral views are weight-bearing. Orthopedic implants noted across the 1st MTP with excellent apposition of the joint. Appears to be consolidation of the joint without any joint space visible. Orthopedic implant in the 2nd PIPJ joint which remains rectus. Orthopedic implant in the 2nd metatarsal head without lucency or back out. Splaying of the 1st and 3rd digits. Assessment/Plan ICD-10-CM 1. S/P foot surgery Z98.890 XR foot 3+ views left 2. Left foot pain M79.672 XR foot 3+ views left Patient examined and evaluated. Stratus utilized for communication. Three radiographs of the left foot taken in office and I discussed my findings. Overall she is doing very well. At this point we will transition her out of the fracture boot into her regular shoe gear. Transition phase discussed indetail. She will trial her steel toed boots a proximally 1 week before returning to work. I would like to see her back in 6 weeks with repeat radiographs of the left foot at that time. This note was created with the assistance of a speech recognition program. While intending to generate a timely document that accurately reflects the content of the visit, no guarantee can be provided that every grammatical or spelling mistake has been or will be identified or corrected. Thank you for your understanding. Christian Richardson DPM documented in this encounterFreeman Health [id number] History of Present illness Narrative* Christian Richardson DPM - 03/25/2025 1:45 PM EDT Images from the original note were not included. Subjective Patient ID: Eren Archibald is a 59 y.o. female who presents for Post-Op #2 (Eren Archibald is a 59 y.o. female who presents for Post Op#2. Patient relates no problems. ). HPI Date of surgery 02/26/2025: 1st MTP arthrodesis, 2nd metatarsal osteotomy, PIPJ arthrodesis 2nd toe, flexor tendon transfer 2nd toe, left lower extremity Patient presents to clinic postoperatively. Patient has some swelling but otherwise is doing very well without any issues. Review of Systems Constitutional: Negative for activity change and appetite change. Respiratory: Negative for chest tightness and shortness of breath. Cardiovascular: Negative for chest pain. Musculoskeletal: Positive for arthralgias and gait problem. Skin: Negative for color change and wound. Neurological: Negative for weakness and numbness. Psychiatric/Behavioral: Negative for agitation and behavioral problems. Hematological: Does not bruise/bleed easily. Endocrine: Negative for cold intolerance and heat intolerance. Allergic/Immunologic: Negative for immunocompromised state. Past medical History Past Medical History: Diagnosis Date Deaf Patient relates typically communicates through a cell phone nina Medications No current outpatient medications on file. Allergies Bacitracin Past Surgical History History reviewed. No pertinent surgical history. Family History No family history on file. Objective Physical Exam Constitutional: Comments: Accompanied by her . Presents to clinic ambulating unassisted with a fracture booton the left foot. HENT: Head: Normocephalic and atraumatic. Cardiovascular: Pulses: Normal pulses. Pulmonary: Effort: Pulmonary effort is normal. No respiratory distress. Abdominal: Palpations: There is no mass. Musculoskeletal: Cervical back: No rigidity. Comments: Left foot: Incisions are well coapted with sutures intact. No drainage or cellulitis noted. Moderate edema to the forefoot. Negative Homans test. No tenderness with range of motion of the calf. Muscle strength testing deferred. Hallux and 2nd digit rectus at this time. Skin: Capillary Refill: Capillary refill takes less than 2 seconds. Findings: No lesion or rash. Neurological: Mental Status: She is alert. Comments: No loss of protective sensation, gross sensation intact. Psychiatric: Mood and Affect: Mood normal. Behavior: Behavior normal. Assessment/Plan ICD-10-CM 1. S/P foot surgery Z98.890 2. Left foot pain M79.672 Patient examined and evaluated. Stratus utilized for communication. Overall she is doing very well.Incisions are healing very well. She will remain weight- bearing in the fracture boot. No weight-bearing outside of the fracture boot. Recommend mostly heel weight-bearing but otherwise weight-bearingas tolerated. Follow up in 2 weeks with repeat radiographs of the left foot at that time. If radiographs appears stable and she is doing well we will begin transitioning back to tennis shoes. This note was created with the assistance of a speech recognition program. While intending to generate a timely document that accurately reflects the content of the visit, no guarantee can be provided that every grammatical or spelling mistake has been or will be identified or corrected. Thank you for your understanding. Christian Richardson DPM documented in this encounterFreeman Health [id number] History of Present illness Narrative* Christian Richardson DPM - 03/11/2025 1:45 PM EDT Images from the original note were not included. Subjective Patient ID: Eren Archibald is a 59 y.o. female who presents for No chief complaint on file.. HPI Date of surgery 02/26/2025: 1st MTP arthrodesis, 2nd metatarsal osteotomy, PIPJ arthrodesis 2nd toe, flexor tendon transfer 2nd toe, left lower extremity Patient presents to clinic postoperatively. Overall she states that she is doing very well. Review of Systems Constitutional: Negative for activity change and appetite change. Respiratory: Negative for chest tightness and shortness of breath. Cardiovascular: Negative for chest pain. Musculoskeletal: Positive for arthralgias and gait problem. Skin: Negative for color change and wound. Neurological: Negative for weakness and numbness. Psychiatric/Behavioral: Negative for agitation and behavioral problems. Hematological: Does not bruise/bleed easily. Endocrine: Negative for cold intolerance and heat intolerance. Allergic/Immunologic: Negative for immunocompromised state. Past medical History Past Medical History: Diagnosis Date Deaf Patient relates typically communicates through a cell phone nina Medications No current outpatient medications on file. Allergies Bacitracin Past Surgical History No past surgical history on file. Family History No family history on file. Objective Physical Exam Constitutional: Comments: Accompanied by her . Presents to clinic nonweightbearing utilizing wheelchair. Intact AO splint on the left lower extremity. HENT: Head: Normocephalic and atraumatic. Cardiovascular: Pulses: Normal pulses. Pulmonary: Effort: Pulmonary effort is normal. No respiratory distress. Abdominal: Palpations: There is no mass. Musculoskeletal: Cervical back: No rigidity. Comments: Left foot: Incisions are well coapted with sutures intact. No drainage or cellulitis noted. Moderate edema to the forefoot. Negative Homans test. No tenderness with range of motion of the calf. Muscle strength testing deferred. Hallux and 2nd digit rectus at this time. Skin: Capillary Refill: Capillary refill takes less than 2 seconds. Findings: No lesion or rash. Neurological: Mental Status: She is alert. Comments: No loss of protective sensation, gross sensation intact. Psychiatric: Mood and Affect: Mood normal. Behavior: Behavior normal. XR foot 3+ views left Imaging Result: AP, medial oblique, lateral views are nonweightbearing. Orthopedic implant noted across the 1st TMTwhich shows excellent apposition of the fusion site. No signs of any gapping present. Orthopedic implant in the 2nd metatarsal and across the 2nd PIPJ joint without back out or lucency noted. Hallux rectus as well as the 2nd toe. Assessment/Plan ICD-10-CM 1. S/P foot surgery Z98.890 XR foot 3+ views left 2. Left foot pain M79.672 XR foot 3+ views left 3. 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 Difficulty walking R26.2 Patient was examined and evaluated. Stratus utilized for communication today. Radiographs of the left foot taken in office and I discussed my findings. I am pleased with the clinical and radiographicappearance. Sutures were removed in office. Incisions reinforced with Steri-Strips. 25 percent weight-bearing starting today, 50 percent weight-bearing starting next week. No weight-bearing outside of the fracture boot. Fracture boot should be worn at all times weight- bearing. Patient was fitted today for a below knee walking cast, cam walker. At the time of dispensing it was suitable and not substandard. Goals of therapy include prevent further injury, stabilization, reduction of stress and pressure to the operative area. Anticipated time of use is at least 6 weeks weeks. Patient was instructed in the application and removal of this device. It fit well. ABN form discussed, presented, explained and then signed by patient. Follow up in 2 weeks for incision check. Patient may shower and getthe foot wet. Avoid soaking in a pool or hot tub for an additional 2 weeks. This note was created with the assistance of a speech recognition program. While intending to generate a timely document that accurately reflects the content of the visit, no guarantee can be provided that every grammatical or spelling mistake has been or will be identified or corrected. Thank you for your understanding. Christian Richardson DPM documented in this [facility]04-22-2025 Telephone encounter Note* Telephone Encounter - Negra Lou - 03/10/2025 11:37 AM EDT Patients brought in disability paperwork that needs to be filled out by pain management forhis restrictions. He would need to bring in our office from his employer FMLA paperwork for him to be off at times heis helping bring Eren into the office for her appointments. [place] [id number] Miscellaneous Notes* Telephone Encounter - Negra Lou - 03/10/2025 11:37 AM EDT Patients brought in disability paperwork that needs to be filled out by pain management forhis restrictions. He would need to bring in our office from his employer FMLA paperwork for him to be off at times heis helping bring Eren into the office for her appointments. documented in this encounterFreeman Health [id number] Telephone encounter Note* Telephone Encounter - Negra Lou - 03/09/2025 11:04 AM EDT Patient ans her stopped in the office to drop off FMLA paperwork for spouse to be off with patient since she had surgery [id number] Miscellaneous Notes* Telephone Encounter - Negra oLu - 03/09/2025 11:04 AM EDT Patient ans her stopped in the office to drop off FMLA paperwork for spouse to be off with patient since she had surgery * Telephone Encounter - Christian Richardson DPM - 02/24/2025 1:47 PM EDT Patient called my cell phone to ask about taking the vitamin D3. Please let her know that I recommend taking this daily including the night before surgery. Thank you. documented in this encounterDavid [place] [id number] Telephone encounter Note* Telephone Encounter - Christian Richardson DPM - 02/24/2025 1:47 PM EDT Patient called my cell phone to ask about taking the vitamin D3. Please let her know that I recommend taking this daily including the night before surgery. Thank you. [place] [id number] Telephone encounter Note* Telephone Encounter - Christian Richardson DPM - 02/23/2025 11:22 AM EDT Reviewed patient's vitamin-D level. Recommend taking 5000 IU of vitamin D3 daily. Thank you. [place] [id number] Miscellaneous Notes* Telephone Encounter - Christian Richardson DPM - 02/23/2025 11:22 AM EDT Reviewed patient's vitamin-D level. Recommend taking 5000 IU of vitamin D3 daily. Thank you. documented in this encounterFreeman Health [id number] Instructions* Patient Instructions* Altagracia Payton RN - 02/18/2025 11:15 AM EDT Preoperative Education Checklist- General Surgery date: 02/26/25 Surgery time: 730a Arrival time: 610a 1. Bring a photo ID and your insurance card with you the day of surgery. You will check in at the main lobby of the [facility]- registration desk is straight ahead as soon as you walk in. Tell them you are here for surgery. 2. If you have a Living Will/Durable Power of [facility] that is not on file here, please bring a copy the day of surgery. 3. Please shower/bathe the night before surgery with the provided soap or wipes. Do not shower the morning of surgery- you will do use wipes when you arrive here at the hospital before getting into your surgical gown. Do not shave the area of your procedure for 2 days prior to your surgery. 4. NO powder, lotion, perfume/cologne, aftershave, make-up, deodorant, or hair products after you have bathed. 5. NO nail jordanian/acrylic on at least one finger. If you are having a hand, wrist or foot surgery then all nail jordanian and artificial/acrylic nails must be removed from that hand or foot. 6. Avoid ALL Aspirin and non-steroidal anti-inflammatory drugs and certain vitamins (Ibuprofen, Advil, Aleve, Excedrin, Meloxicam, Celebrex, fish/krill oil, etc.) for 7 days prior to surgery as instructed by your surgeon and/or your prescribing doctor. Tylenol IS ALLOWED. If you are on Ticlid, Xarelto, Eliquis, Pradaxa, Plavix or Coumadin, please check with your prescribing doctor for instructions for when to stop them. 7. If you use an inhaler, continue to use it routinely. 8. Nothing to eat or drink (not even water, gum, mints, or hard candy!) AFTER midnight prior to your surgery. 9. Take only medications that you are instructed to on the morning of surgery with a TINY SIP OF WATER. 10. Choose a responsible adult that will be able to drive you home when you are discharged from your hospital stay for your surgery and can stay with you in your home for 24 hours after your procedure. You must NOT drive any vehicle or operate any machinery for 24 hours after surgery. 11. When you dress for your appointment, please wear loose fitting clothing that is appropriate to accommodate your surgical area procedure. BRING WITH YOU ANY DEVICES YOU MAY NEED: SASKIA hose, ice machine, sling/swath, brace or special shoe, oversized zip-up or button up shirt, CPAP machine if staying overnight. 12. Do NOT wear jewelry, watches, or any piercings or metal for surgery- leave these valuables and money at home. 13. Do NOT wear contact lenses for surgery- glasses are okay if needed. 14. The anesthesiologist will talk with you the day of surgery and will ask you to sign a Consent Form. 15. Refrain from smoking or any type of tobacco use for at least 8 hours and marijuana for 24 hoursprior to arrival for your surgery. 16. If a GREEN BLOOD band is given to you, please bring it with you for the day of surgery. 17. Notify your surgeon if you develop any illness before your surgery. 18. If you are staying overnight, please DO NOT BRING your home medications with you. 19. If you have any questions prior to surgery, please call the Preadmission Testing office at [phone], Mon.-Fri. 7 a.m.-3 p.m. Leave a voicemail if needed. No current outpatient medications on file. How to Avoid an Infection after Your Surgery Your doctor will give you specific instructions, but remember: -ALWAYS wash hands before caring for your incision. -No picking, scratching, or rubbing your incision. -No creams, lotion, powder, rubbing alcohol or hydrogen peroxide on the incision (can harm the tissue and slow healing). -Your doctor will give you specific instructions for what type of dressing you will need and how often it will need changed for infection purposes. -No tight clothing on incision. -Do not allow anyone to touch your incision unless they are cleaning, checking, or redressing it (be sure they wash their hands first). -No contact of your incision with pets; avoid sleeping with pets. -Take full course of antibiotic if prescribed for you after surgery- do not stop unless directed channing your physician. You may also be given an antibiotic prior to your surgery to help prevent surgical site infections. -Eat a healthy and varied diet including proteins, fruits, and vegetables to help promote wound healing and keep blood sugars under control if you are diabetic. -Smoking slows the healing process by decreasing the amount of oxygen in your blood that is needed for tissue healing. Try to avoid or stop smoking if possible. LOOK at your incision each morning and each night to check the progress of healing. Some soreness, numbness, itching and/or mild bruising around the incision is normal. Call your doctor if you noticeany of the following: -Increased redness or hardening around the incision area. -Increased pain at the incision site. -Incision feels hot to the touch. -Swelling or pulling apart of the incision edges. -Yellow or green drainage or foul odor coming from the incision. -Bleeding from the incision (apply pressure as needed). -Fever higher than 101 degrees Fahrenheit for more than 4 hours. SHOWERING: Your doctor will give you specific instructions, but remember: -Be careful getting into and out of the shower. -Showers should be quick (5 minutes or less). -Use a clean washcloth to gently wash your incision with soap and water and pat the area dry with aclean towel. -No re-using wash cloths or towels; get a fresh one to clean your incision. -Do not soak in the bathtub, go swimming or use a hot tub (Sparkflyuzzi), or perform activities where your incision is submerged in water or exposed to any fluids or substances until instructed by your doctor. -If your have the sticky strips (steri-strips) over the incision, it is OK to shower with them. Do not remove them. Let them fall off on their own. If you have a question, call your doctor s office. Go to the follow-up appointment with your doctor. documented in this encounterOhio[facility] Miscellaneous Notes* Perioperative Nursing Note - Altagracia Payton RN - 02/18/2025 11:15 AM EDT shutdown coordinator used during PAT appointment. Questions answered, pt verbalized understanding. documented in this [facility]04-02-2025 Nurse Note* Perioperative Nursing Note - Altagracia Payton RN - 02/18/2025 11:15 AM EDT shutdown coordinator used during PAT appointment. Questions answered, pt verbalized understanding. [employer] [id number] History of Present illness Narrative* Christian Richardson, DPM - 02/18/2025 9:45 AM EDT Images from the original note were not included. Subjective Patient ID: Eren Archibald is a 59 y.o. female who presents for No chief complaint on file.. HPI Established patient returns to clinic for consent and instructions regarding upcoming left foot surgery. Patient has been dealing with left foot pain, deformity for many years. She has failed extensive conservative care measures, pain continues to worsen. After discussing risks and benefits she elects to move forward with surgical intervention. Review of Systems Constitutional: Negative for activity change and appetite change. Respiratory: Negative for chest tightness and shortness of breath. Cardiovascular: Negative for chest pain. Musculoskeletal: Positive for arthralgias and gait problem. Skin: Negative for color change and wound. Neurological: Negative for weakness and numbness. Psychiatric/Behavioral: Negative for agitation and behavioral problems. Hematological: Does not bruise/bleed easily. Endocrine: Negative for cold intolerance and heat intolerance. Allergic/Immunologic: Negative for immunocompromised state. Past medical History Past Medical History: Diagnosis Date Deaf Patient relates typically communicates through a cell phone nina Medications No current outpatient medications on file. Allergies Bacitracin Past Surgical History No past surgical history on file. Family History No family history on file. Objective Physical Exam Constitutional: Comments: Accompanied by her . HENT: Head: Normocephalic and atraumatic. Cardiovascular: Pulses: Normal pulses. Pulmonary: Effort: Pulmonary effort is normal. No respiratory distress. Abdominal: Palpations: There is no mass. Musculoskeletal: Cervical back: No rigidity. Comments: Weightbearing examination reveals pes planus morphology. She is able to perform a double heel rise test with some tenderness. Left foot: Lateral deviation of the hallux with prominent medial eminence over the 1st MTP. There is medial deviation of the 2nd toe at the MTP with dorsal elevation as well. Isolated and maximal tenderness over the medial eminence. Range of motion of the 1st MTP is slightly tender and limited to about 20 degrees of dorsiflexion. I can not appreciate any crepitus. Increased excursion of the 1st ray. Tenderness to the 2nd plantar plate insertion. Negative Yusuf's test although this is tender. Tenderness with forced plantar flexion of the 2nd toe at the MTP. Semi rigid plantar flexion contracture at the PIPJ joint of the 2nd toe. Muscle strength 5/5 for all quadrants. Ankle dorsiflexion 0 degrees with the knee extended, flexed. Skin: Capillary Refill: Capillary refill takes less than 2 seconds. Findings: No lesion or rash. Neurological: Mental Status: She is alert. Comments: No loss of protective sensation, gross sensation intact. Psychiatric: Mood and Affect: Mood normal. Behavior: Behavior normal. Assessment/Plan ICD-10-CM 1. Hallux valgus of left foot M20.12 2. 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 Hammer toe of left foot M20.42 Patient was examined and evaluated. ZAOZAO was utilized with an bilingual school psychologist to help with communication. I reviewed all previous, relevant imaging and lab studies. Due to the patient's continued painand deformity I have recommended surgical intervention. I discussed reasonable risks and complications of the planned procedures including but not limited to bleeding, infection, numbness, swelling, malunion, nonunion, hardware failure, need for further surgery, DVT, PE, loss of limb and loss of life. I discussed the recovery period for the planned procedures which will include 1st MTP arthrodesis, shortening osteotomy of the 2nd metatarsal, PIPJ joint arthrodesis of the 2nd toe with direct or i ndirect plantar plate repair of the 2nd MTP. Total recovery time is expected to be around 4 months.After discussing all the risks and benefits of surgical intervention she elects to proceed. We willfollow up 2 weeks postoperatively. Anticipate 81 mg aspirin starting postop day 1 for DVT risk reduction. Patient has not yet got her vitamin-D level drawn and I will review this when she has a drawn to see if she needs to supplement daily. This note was created with the assistance of a speech recognition program. While intending to generate a timely document that accurately reflects the content of the visit, no guarantee can be provided that every grammatical or spelling mistake has been or will be identified or corrected. Thank you for your understanding. Christian Richardson DPM documented in this encounterFreeman Health [id number] History of Present illness Narrative* Cade Deutsch NP - 02/17/2025 3:46 PM EDTAssociated Problem(s): Hyperlipidemia (CMS/HCC) Check labs no statin * Cade Deutsch NP - 02/17/2025 3:46 PM EDTAssociated Problem(s): Encounter for adult wellness visit Reviewed Ht/Wt/BMI Recommend eye exam yearly Recommend dental exams twice a year Balance work/leisure activities Exercises is recommended most days of the week (appropriate as chronic conditions allow) Follow up yearly and prn * Cade Deutsch NP - 02/17/2025 3:46 PM EDTAssociated Problem(s): Chronic pain of left knee resolved * Cade Deutsch NP - 02/17/2025 3:46 PM EDTAssociated Problem(s): Gastroesophageal reflux disease none * Cade Deutsch NP - 02/17/2025 2:00 PM EDT Images from the original note were not included. Eren Archibald is a 59 y.o. female presents with chief complaint of No chief complaint on file. HPI: Diet:variety Activity:limited with foot pain Mental Health Concerns:none Falls in the last year:no Any hearing problems: yes Any Vision problems: glasses Any Hospitalizations in the last year:no Specialist: podiatry Knee feels great SUBJECTIVE: MEDICATIONS: Current Outpatient Medications Medication Instructions meloxicam (MOBIC) 15 mg, Daily ALLERGIES: Allergies Allergen Reactions Bacitracin Unknown [...] rash and wound. Neurological: Negative for dizziness, tremors, seizures, syncope and headaches. Psychiatric/Behavioral: Negative for behavioral problems, self-injury and suicidal ideas. The patient is not nervous/anxious. Hematological: Does not bruise/bleed easily. Endocrine: Negative for polydipsia, polyphagia and polyuria. Allergic/Immunologic: Negative for environmental allergies and food allergies. PAST MEDICAL HISTORY Past Medical History: Diagnosis Date Deaf Patient relates typically communicates through a cell phone nina No past surgical history on file. family history is not on file. OBJECTIVE: Visit Vitals BP 138/80 (BP Location: Left arm, Patient Position: Sitting, BP Cuff Size: Adult long) Pulse 79 Temp 98.7 F (Temporal) Resp 18 Wt 153 lb 6.4 oz SpO2 99% BMI 28.98 kg/m Smoking Status Never BSA 1.73 m Physical Exam Vitals and nursing note reviewed. Constitutional: General: She is not in acute distress. Appearance: Normal appearance. HENT: Head: Normocephalic and atraumatic. Right Ear: External ear normal. Left Ear: External ear normal. Nose: Nose normal. Mouth/Throat: Mouth: Mucous membranes are moist. Eyes: Extraocular Movements: Extraocular movements intact. Conjunctiva/sclera: Conjunctivae normal. Neck: Vascular: No carotid bruit. Cardiovascular: Rate and Rhythm: Normal rate and regular rhythm. Pulses: Normal pulses. Heart sounds: Normal heart sounds. Pulmonary: Effort: Pulmonary effort is normal. Breath sounds: Normal breath sounds. Abdominal: General: Bowel sounds are normal. There is no distension. Palpations: Abdomen is soft. There is no mass. Tenderness: There is no abdominal tenderness. Musculoskeletal: General: Normal range of motion. Cervical back: Normal range of motion and neck supple. Right lower leg: No edema. Left lower leg: No edema. Lymphadenopathy: Cervical: No cervical adenopathy. Skin: General: Skin is warm and dry. Capillary Refill: Capillary refill takes 2 to 3 seconds. Findings: No rash. Neurological: General: No focal deficit present. Mental Status: She is alert and oriented to person, place, and time. Psychiatric: Mood and Affect: Mood normal. Behavior: Behavior normal. Thought Content: Thought content normal. Judgment: Judgment normal. ASSESSMENT AND PLAN: No follow-ups on file. Problem List Items Addressed This Visit Gastroesophageal reflux disease - Primary none Hyperlipidemia (CMS/HCC) Check labs no statin Overweight with body mass index (BMI) 25.0-29.9 Chronic pain of left knee resolved Encounter for adult wellness visit Reviewed Ht/Wt/BMI Recommend eye exam yearly Recommend dental exams twice a year Balance work/leisure activities Exercises is recommended most days of the week (appropriate as chronic conditions allow) Follow up yearly and prn Relevant Orders Hepatic function panel Lipid panel documented in this encounterFreeman Health [id number] Instructions* Patient Instructions* Cade Deutsch NP - 02/17/2025 2:00 PM EDT Please get labs done fasting Eye exam yearly Dentist twice a year Exercise as tolerated documented in this encounterFreeman Health [id number] History of Present illness Narrative* Cade Deutsch NP - 01/06/2025 3:07 PM ESTAssociated Problem(s): Chronic pain of left knee Cannot say this would be work related d/t no definite mechanism of injury. Will check xray Add meloxicam Order PT Fu in 6 weeks If not better consider MRI and or Ortho * FABIANA HAIR - 01/06/2025 2:20 PM EST Pt states that her left knee has been swelling on and off since July, it is sometimes painful.Pt uses brace at times and uses IBU [...] at your work place then cade would recommendgoing to er or urgent care to start the paperwork process. 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 I wear a brace since 2 days.. I think it is better and IB too * Cade Deutsch NP - 01/06/2025 2:20 PM EST Images from the original note were not included. Eren Archibald is a 59 y.o. female presents with chief complaint of Joint Swelling (knee) HPI: Knee Pain Incident onset: 08/12. Incident location: unsure. There was no injury mechanism. The pain is presentin the left knee. The quality of the [...] referral to Physical Therapy documented in this [facility]02-18-2025 Instructions* Patient Instructions* Cade Deutsch NP - 01/06/2025 2:20 PM EST Knee pain: we will check xray Order Physical Therapy, [facility] call you Medication: Meloxicam 15mg once a day. While taking this do NOT take ibuprofen, advil, aleve, you may take Tylenol in addition to this I will see you back in 6 weeks if not better after that we may consider MRI knee or a referral to an Ortho specialist documented in this [facility]11-24-2021 NoteChief Complaint consultation for colonoscopy HPI Staff 56 year old female presents on consultation from Cade Deutsch NP for colonoscopy. Last colonoscopycompleted 12/11/2016 with tubular adenoma. No known family history of colon cancer. Denies abdominalor rectal pain. No rectal bleeding or change [...] swallowing difficulties, no hearing loss, no ear infection(s),no nose bleeds. Cardiovascular: normal blood pressure, no [...] 2: Mother. Primary malignant neoplasm of lung: Father.[facility] HospitalComment on above:Result Comment: Electronically Signed By: APRIL NUNES, Radha Avendano\Date and Time Signed: 10/12/21 14:44 ESTEvaluation noteNo assessment information availableSouthwest General Health Center Work Phone: Evaluation note* Diagnosis Onset Date Resolution Status Contact with and (suspected) exposure to covid-19 noneactive [facility] Work Phone: Evaluation note* Diagnosis Diverticular disease- Primary Diverticulosis of colon (without mention of hemorrhage) Overweight with body mass index (BMI) 25.0-29.9 Bilateral hearing loss, unspecified hearing loss type Chronic pain of left knee- Primary Overweight with body mass index (BMI) 25.0-29.9 documented in this encounter [facility]* Diagnosis Diverticular disease- Primary Diverticulosis of colon (without mention of hemorrhage) Overweight with body mass index (BMI) 25.0-29.9 Bilateral hearing loss, unspecified hearing loss type Chronic pain of left knee- Primary Overweight with body mass index (BMI) 25.0-29.9 Encounter for adult wellness visit- Primary Gastroesophageal reflux disease, unspecified whether esophagitis present Overweight with body mass index (BMI) 25.0-29.9 Mixed hyperlipidemia (CMS/HCC) Mixed hyperlipidemia Chronic pain of left knee documented in this encounter [facility] HealthcareEvaluation note* Diagnosis Diverticular disease- Primary Diverticulosis of colon (without mention of hemorrhage) Overweight with body mass index (BMI) 25.0-29.9 Bilateral hearing loss, unspecified hearing loss type Chronic pain of left knee- Primary Overweight with body mass index (BMI) 25.0-29.9 Encounter for adult wellness visit- Primary Gastroesophageal reflux disease, unspecified whether esophagitis present Overweight with body mass index (BMI) 25.0-29.9 Mixed hyperlipidemia (CMS/HCC) Mixed hyperlipidemia Chronic pain of left knee Hallux valgus of left foot- Primary Deformity of metatarsal bone of left foot Acquired deformity of left toe Hammer toe of left foot documented in this encounter [facility] HealthcareEvaluation note* Diagnosis Preop examination- Primary Unspecified pre-operative examination Preop examination Unspecified pre-operative examination documented [facility] encounter [facility]* Diagnosis Diverticular disease- Primary Diverticulosis of colon (without mention of hemorrhage) Overweight with body mass index (BMI) 25.0-29.9 Bilateral hearing loss, unspecified hearing loss type Chronic pain of left knee- Primary Overweight with body mass index (BMI) 25.0-29.9 Encounter for adult wellness visit- Primary Gastroesophageal reflux disease, unspecified whether esophagitis present Overweight with body mass index (BMI) 25.0-29.9 Mixed hyperlipidemia (CMS/HCC) Mixed hyperlipidemia Chronic pain of left knee Pre-operative clearance Unspecified pre-operative examination Encounter for adult wellness visit- Primary documented in this encounter [facility] HealthcareEvaluation note* Diagnosis Diverticular disease- Primary Diverticulosis of colon (without mention of hemorrhage) Overweight with body mass index (BMI) 25.0-29.9 Bilateral hearing loss, unspecified hearing loss type Chronic pain of left knee- Primary Overweight with body mass index (BMI) 25.0-29.9 Encounter for adult wellness visit- Primary Gastroesophageal reflux disease, unspecified whether esophagitis present Overweight with body mass index (BMI) 25.0-29.9 Mixed hyperlipidemia (CMS/HCC) Mixed hyperlipidemia Chronic pain of left knee Pre-operative clearance Unspecified pre-operative examination Vitamin D insufficiency- Primary documented in [facility] encounter [facility]* Diagnosis Diverticular disease- Primary Diverticulosis of colon (without mention of hemorrhage) Overweight with body mass index (BMI) 25.0-29.9 Bilateral hearing loss, unspecified hearing loss type Chronic pain of left knee- Primary Overweight with body mass index (BMI) 25.0-29.9 Encounter for adult wellness visit- Primary Gastroesophageal reflux disease, unspecified whether esophagitis present Overweight with body mass index (BMI) 25.0-29.9 Mixed hyperlipidemia (CMS/HCC) Mixed hyperlipidemia Chronic pain of left knee Pre-operative clearance Unspecified pre-operative examination Vitamin D insufficiency- Primary documented in this encounter [facility]* Diagnosis Diverticular disease- Primary Diverticulosis of colon (without mention of hemorrhage) Overweight with body mass index (BMI) 25.0-29.9 Bilateral hearing loss, unspecified hearing loss type Chronic pain of left knee- Primary Overweight with body mass index (BMI) 25.0-29.9 Encounter for adult wellness visit- Primary Gastroesophageal reflux disease, unspecified whether esophagitis present Overweight with body mass index (BMI) 25.0-29.9 Mixed hyperlipidemia (CMS/HCC) Mixed hyperlipidemia Chronic pain of left knee Pre-operative clearance Unspecified pre-operative examination S/P foot surgery- Primary Other postprocedural status Left foot pain Pain in soft tissues of limb Instability of left ankle joint Difficulty walking Difficulty in walking documented in this encounter [facility]* Diagnosis Diverticular disease- Primary Diverticulosis of colon (without mention of hemorrhage) Overweight with body mass index (BMI) 25.0-29.9 Bilateral hearing loss, unspecified hearing loss type Chronic pain of left knee- Primary Overweight with body mass index (BMI) 25.0-29.9 Encounter for adult wellness visit- Primary Gastroesophageal reflux disease, unspecified whether esophagitis present Overweight with body mass index (BMI) 25.0-29.9 Mixed hyperlipidemia (CMS/HCC) Mixed hyperlipidemia Chronic pain of left knee Pre-operative clearance Unspecified pre-operative examination S/P foot surgery- Primary Other postprocedural status Left foot pain Pain in soft tissues of limb documented in this encounter [facility]Evaluation [facility]* Diagnosis Diverticular disease- Primary Diverticulosis of colon (without mention of hemorrhage) Overweight with body mass index (BMI) 25.0-29.9 Bilateral hearing loss, unspecified hearing loss type Chronic pain of left knee- Primary Overweight with body mass index (BMI) 25.0-29.9 Encounter for adult wellness visit- Primary Gastroesophageal reflux disease, unspecified whether esophagitis present Overweight with body mass index (BMI) 25.0-29.9 Mixed hyperlipidemia (CMS/HCC) Mixed hyperlipidemia Chronic pain of left knee Pre-operative clearance Unspecified pre-operative examination S/P foot surgery- Primary Other postprocedural status Left foot pain Pain in soft tissues of limb documented in this encounter [facility]Evaluation note* Diagnosis Diverticular disease- Primary Diverticulosis of colon (without mention of hemorrhage) Overweight with body mass index (BMI) 25.0-29.9 Bilateral hearing loss, unspecified hearing loss type Chronic pain of left knee- Primary Overweight with body mass index (BMI) 25.0-29.9 Encounter for adult wellness visit- Primary Gastroesophageal reflux disease, unspecified whether esophagitis present Overweight with body mass index (BMI) 25.0-29.9 Mixed hyperlipidemia Mixed hyperlipidemia Chronic pain of left knee Pre-operative clearance Unspecified pre-operative examination S/P foot surgery- Primary Other postprocedural status Left foot pain Pain in soft tissues of limb documented in this encounter [facility]Evaluation [facility]* Diagnosis Diverticular disease- Primary Diverticulosis of colon (without mention of hemorrhage) Overweight with body mass index (BMI) 25.0-29.9 Bilateral hearing loss, unspecified hearing loss type Chronic pain of left knee- Primary Overweight with body mass index (BMI) 25.0-29.9 Encounter for adult wellness visit- Primary Gastroesophageal reflux disease, unspecified whether esophagitis present Overweight with body mass index (BMI) 25.0-29.9 Mixed hyperlipidemia Chronic pain of left knee Pre-operative clearance Unspecified pre-operative examination S/P foot surgery- Primary Other postprocedural status documented in this encounter [facility]* Diagnosis Onset Date Resolution Status Admit Date URI (upper respiratory infection) acuteNovember 2024 11:26am [facility] Work Phone: Reason for referral (narrative)No reason for referral information availableSouthwest General Health Center Work Phone: Summary Purpose Family History No Family History Records FoundNo Family History Records FoundNo Family History Records FoundNo Family History Records Found Advance Directives Advance Directive Response Recorded Date/ Time Advance Directives No May 04 10:09am Advance Directive Response Recorded Date/ Time Advance Directives No May 04 9:09am Chief Complaint and Reason for Visit Chief Complaint sore throat, cough, infection Chief Complaint sore throat, cough, infection Reason for Visit Contact with and (serna spected) exposure to covid-19 Chief Complaint Admit Date Very Sore Throat September 28, 2025 11:26am Reason for Visit Admit Date URI (upper respiratory infection) Novemb er 2024 11:26am Additional Source Comments INFORMATION SOURCE (unrecogn ized section and content) DATE CREATED AUTHOR 11/08/2021 [facility] DATE CREATED AUTHOR AUTHOR'S ORGANIZ ATION 01/13/2023 [facility] DATE CREATED AUTHOR AUTHOR'S ORGANIZ ATION 02/27/2025 [facility] DATE CREATED AUTHOR AUTHOR'S ORGANIZ ATION 08/26/2025 [facility] EPIC Care Teams (unrecognized sec tion and content) Team Status: Active Member Role Status Dates NON STAFF Primary Care Provider Active Team Status: Inactive Member Role Status Dates Debra Resendiz APRN Attending Provider Active Start: May 04, 2024 End: May 04, 2024NON STAFFPrimary Care ProviderActiveStart: May 04, 2024 End: May 04, 2024 Team Status: Active Member Role Status Dates Debra Resendiz APRN Attending Provider Active Start: May 04, 2024 NON STAFFPrimary Care ProviderActiveStart: May 04, 2024 Team MemberRelationshipSpecialtyStart DateEnd Date Dung Valdez MD [address] [place] [phone] PCP - GeneralFamily Medicine05/13/24 Cade Deutsch NP [address] [place] [address] Nurse Practitionermily Medicine05/13/24Team MemberRelationshipSpecialtyStart DateEnd Date Dung Valdez MD [address] [place] [phone] PCP - Generalmily Medicine05/13/24 Cade Deutsch NP [address] [place] [address] [facility]05/13/24Team MemberRelationshipSpecialtyStart DateEnd Date Dung Valdez MD [address] [place] [phone] PCP - Generalmily Medicine05/13/24 Cade Deutsch NP [address] [place] [address] Nurse PractitionerStory [facility] Medical Centerly Medicine05/13/24Team MemberRelationshipSpecialtyStart DateEnd Date Dung Valdez MD [address] [place] [phone] PCP - GeneralFamily Medicine05/13/24 Cade Deutsch NP [address] [place] [phone] Nurse Practitionermily Medicine05/13/24Team MemberRelationshipSpecialtyStart DateEnd Date Dung Valdez MD [address] [place] [address] PCP - GeneralFamily Medicine05/13/24 Cade Deutsch NP [address] [place] [address] Nurse Pract[facility] Medicine05/13/24Team MemberRelationshipSpecialtyStart DateEnd Date Dung Valdez MD [address] [place] [phone] PCP - Generalmi Medicine05/13/24 Cade Deutsch NP [address] [place] [address] [facility]05/13/24Team MemberRelationshipSpecialtyStart DateEnd Date Dung Valdez MD [address] [place] [phone] PCP - [facility] Medicine05/13/24 Cade Deutsch NP [address] [place] [address] Nurse Pract[facility]erH[facility] Medicine05/13/24Team MemberRelationshipSpecialtyStart DateEnd Date Cade Deutsch, PURCHASING ENGINEER-TRANSCRIPTIONIST [address] [place] [address] [facility]CP - [facility]02/18/25Team MemberRelationshipSpecialtyStart Date End Date Dung Valdez MD [address] [place] [address] PCP - GeneralP[facility]05/13/24 Cade Deutsch NP [address] [place] [address] Nurse PractitionerP[facility]05/13/24Team MemberRelationshipSpecialtyStart DateEnd Date Dung Valdez MD [address] [place] [phone] PCP - [facility]05/13/24 Cade Deutsch NP [address] [place] [address] Nurse [facility]05/13/24Team MemberRelationshipSpecialtyStart DateEnd Date Dung Valdez MD [address] [place] [address] PCP - [facility]05/13/24 Cade Deutsch NP [address] [place] [address] Nurse Pract[facility]05/13/24Team MemberRelationshipSpecialtyStart DateEnd Date Dung Valdez MD [address] [place] [address] PCP - GeneralFamily Medicine05/13/24 Cade Deutsch NP [address] [place] [address] Nurse [facility] Medicine05/13/24Team MemberRelationshipSpecialtyStart DateEnd Date Dung Valdez MD [address] [place] [address] PCP - [facility] Medicine05/13/24 Cade Deutsch NP [address] [place] [address] Nurse Pract[facility]05/13/24Team MemberRelationshipSpecialtyStart DateEnd Date Dung Valdez MD [address] [place] [phone] PCP - [facility]05/13/24 Cade Deutsch NP [address] [place] [address] Nurse PractitionerP[facility]05/13/24Team MemberRelationshipSpecialtyStart DateEnd Date Dung Valdez MD [address] [place] [address] PCP - [facility] Medicine05/13/24 Cade Deutsch NP [address] [place] [address] Nurse PractitionerStory [facility] Centerly Medicine05/13/24Team MemberRelationshipSpecialtyStart DateEnd Date Dung Valdez MD [address] [place] [address] PCP - [facility] Medicine05/13/24 Cade Deutsch NP [address] [place] [address] Nurse Pract[facility] Medicine05/13/24Team MemberRelationshipSpecialtyStart DateEnd Date Dung Valdez MD [address] [place] [phone] PCP - [facility]05/13/24 Cade Deutsch NP [address] [place] [address] Nurse PractitionerP[facility]05/13/24Team MemberRelationshipSpecialtyStart DateEnd Date Dung Valdez MD [address] [place] [address] PCP - [facility] Medicine05/13/24 Cade Deutsch NP [address] [place] [address] Nurse Pract[facility]erH[facility] Medicine05/13/24 Team Status: Active Member Role/Relationship Status Dates BLAKE Marroquin Primary Care Provider Active Team Status: Inactive Member Role/Relationship Status Dates BLAKE Marroquin Primary Care Provider Active Start: September 28, 2025 End: September 28, 2025Cade Deutsch NP-José Miguel ProviderActiveStart: September 28, 2025 End: September 28, 2025 Goals (unrecognized section and content) Goals may be documented in a n alternate sectionGoals may be documented in an alternate sectionNot on filedocumented as of this encounterGoals may be documented in an alternate section Reason for Visit (unrecogniz ed section and content) ReasonCommentsJoint SwellingkneeReasonOnset DateCommentsAdvice Only02/24/2025 FMLA for spouseReasonOnset DateCommentsAdvice Only03/10/2025FMLA/disability paperworkReasonCommentsPost-Op #2Scheryl Archibald is a 59 y.o. female who presents for Post Op#2. Patient relates no problems.ReasonComments3 month Post OpScheryl Archibald is a 59 y.o. female who presents for 3 month Post Op.Date of surgery 02/26/2025. SignLanguage Interpretation Stratus used.ReasonCommentsFollow-up Established patient presents today for 3 month post-op visit. DOS: 02/26/25 Patient reports doing well, has no concerns today. FOR RECORDS PERTAINING TO PATIENTS WHO ARE [...] BE BASED ON THE PRIMARY CLINICAL RECORDS. [employer] provides no warranty or guarantee of the accuracy or completeness of information in this document.
== END 2025-11-18 09:21 | disposition home or self-care (01) ==
LOC: MAMMO 09:20
PROVIDERS: PCP Nurse Practitioner; Visit Provider Nurse Practitioner
DX: Z12.31 Encounter for screening mammogram for malignant neoplasm of breast (principal); Z80.1 Family history of malignant neoplasm of trachea, bronchus and lung
CPT/HCPCS: 77063; 77067